=== PATIENT | female | born 1965 | race African-American/Black ===

== ENCOUNTER 2016-11-07 12:49 | Outpatient (CLI) | payer OTHER ==
[2013-03-25 15:49] VITALS: TEMP 98.6
[2016-06-26 20:41] VITALS: BMI 38.6
[2016-11-07 13:28] LABS: BASOPHILS % (AUTO) 0.6 % (0.0-3.0); EOSINOPHILS # (AUTO) 0.1 K/ul (0.0-0.7); EOSINOPHILS % (AUTO) 1.5 % (0.0-7.0); HEMATOCRIT 37.4 % (37.0-47.0); HEMOGLOBIN 12.4 g/dl (12.0-16.0); LYMPHOCYTES # (AUTO) 1.2 K/uL (0.60-3.4); LYMPHOCYTES % (AUTO) 26.1 (10.0-50.0); MEAN CORPUSCULAR HEMOGLOBIN 28.8 pg (27.0-31.0); MEAN CORPUSCULAR HGB CONC 33.2 (31.8-35.4); MEAN CORPUSCULAR VOLUME 86.8 fl (81.0-99.0); MONOCYTES # (AUTO) 0.3 K/uL (0.4-2.0); MONOCYTES % (AUTO) 5.8 (0-10); NEUTROPHILS # (AUTO) 3.1 K/ul (2.0-6.9); PLATELET COUNT 107 10^3/uL (140-440); RED BLOOD COUNT 4.31 10^6/ul (4.20-5.40); WHITE BLOOD COUNT 4.64 K/ul (4.6-10.2)
--- NOTE | 2016-11-07 13:33 | DI ---
EXAM: PA and lateral views of the chest HISTORY: Cough. COMPARISON: Chest x-ray 06/26/2014 FINDINGS: The cardiomediastinal silhouette is unchanged with intact sternotomy wires. There is mil d elevation of the left hemidiaphragm with adjacent ground-glass consolidation. There is no pneumot horax or pleural effusion. There is no additional consolidation, nodule or mass. The osseous struc tures are unremarkable. IMPRESSION: 1. Stable elevation of the left hemidiaphragm with adjacent ground-glass consolidation that may rep resent atelectasis or pneumonia.
[2016-11-07 13:55] LABS: ALBUMIN 4.3 g/dL (3.4-5.0); ALBUMIN/GLOBULIN RATIO 1.43; ANION GAP 15.6; BILIRUBIN,TOTAL 0.69 mg/dL (0.00-1.20); BUN/CREATININE RATIO 21.64; CALCIUM 10.1 mg/dL (8.2-10.2); CREATININE 1.34 mg/dL (0.60-1.30); POTASSIUM 4.6 mmol/L (3.5-5.10); TOTAL PROTEIN 7.3 g/dL (6.4-8.2)
--- NOTE | 2016-11-07 14:41 | CT ---
EXAM: CT BRAIN HISTORY: Headaches TECHNIQUE: CT brain without intravenous contrast. 5-mm axial sections with Reformations. COMPARISON: 05/12/2016 FINDINGS: Suggestion of low-lying cerebellar tonsils likely congenital. Brain otherwise is unremarkable withou t distinct evidence of hemorrhage or large vessel distribution recent ischemic infarction. There is no suggestion of acute hydrocephalus or subdural fluid collection. No mass or mass effect. Cranium is within normal limits. Mastoid air cells are aerated. The visualized paranasal sinuses r eveal partial opacification of the left maxillary cell. IMPRESSION: Chronic maxillary sinusitis.
== END 2016-11-07 12:50 | disposition home or self-care (01) ==
LOC: RAD 12:49
PROVIDERS: ATTEND Emergency Medicine
DX: R51 Headache (principal); R05 Cough; E78.5 Hyperlipidemia, unspecified; I10 Essential (primary) hypertension; E11.9 Type 2 diabetes mellitus without complications; J44.9 Chronic obstructive pulmonary disease, unspecified; K21.9 Gastro-esophageal reflux disease without esophagitis
CPT/HCPCS: 36415; 80053; 85025

== ENCOUNTER 2016-11-08 10:00 | Outpatient (RCR) ==
[2013-03-25 15:49] VITALS: TEMP 98.6
[2016-06-26 20:41] VITALS: BMI 38.6
== END 2016-11-12 ==
LOC: NEWBEG 10:00
PROVIDERS: ATTEND Psychiatry & Neurology Psychiatry
DX: F32.9 Major depressive disorder, single episode, unspecified (principal); F41.9 Anxiety disorder, unspecified
CPT/HCPCS: 90853; 99214

== ENCOUNTER 2016-12-06 09:08 | Outpatient (CLI) ==
[2013-03-25 15:49] VITALS: TEMP 98.6
[2016-06-26 20:41] VITALS: BMI 38.6
[2016-12-06 09:37] LABS: BASOPHILS % (AUTO) 0.6 % (0.0-3.0); EOSINOPHILS # (AUTO) 0.1 K/ul (0.0-0.7); EOSINOPHILS % (AUTO) 2.1 % (0.0-7.0); HEMATOCRIT 37.9 % (37.0-47.0); HEMOGLOBIN 12.3 g/dl (12.0-16.0); IMMATURE GRANULOCYTE % (AUTO) 0.4 % (0.0-5.0); LYMPHOCYTES # (AUTO) 1.7 K/uL (0.60-3.4); LYMPHOCYTES % (AUTO) 32.2 (10.0-50.0); MEAN CORPUSCULAR HEMOGLOBIN 28.7 pg (27.0-31.0); MEAN CORPUSCULAR HGB CONC 32.5 (31.8-35.4); MEAN CORPUSCULAR VOLUME 88.6 fl (81.0-99.0); MONOCYTES # (AUTO) 0.4 K/uL (0.4-2.0); MONOCYTES % (AUTO) 7.9 (0-10); NEUTROPHILS % (AUTO) 56.8; PLATELET COUNT 94 10^3/uL (140-440); RED BLOOD COUNT 4.28 10^6/ul (4.20-5.40); WHITE BLOOD COUNT 5.22 K/ul (4.6-10.2)
[2016-12-06 09:52] LABS: ANION GAP 16.5; CALCIUM 9.7 mg/dL (8.2-10.2); CREATININE 1.3 mg/dL (0.60-1.30); POTASSIUM 4.5 mmol/L (3.5-5.10)
== END 2016-12-06 09:09 | disposition home or self-care (01) ==
LOC: LAB 09:08
PROVIDERS: ATTEND Internal Medicine
DX: Z94.1 Heart transplant status (principal); Z48.298 Encounter for aftercare following other organ transplant; Z79.899 Other long term (current) drug therapy; N28.9 Disorder of kidney and ureter, unspecified
CPT/HCPCS: 36415; 80048; 80197; 85025

== ENCOUNTER 2016-12-06 10:00 | Outpatient (RCR) ==
[2013-03-25 15:49] VITALS: TEMP 98.6
[2016-06-26 20:41] VITALS: BMI 38.6
== END 2016-12-10 ==
LOC: NEWBEG 10:00
PROVIDERS: ATTEND Psychiatry & Neurology Psychiatry
DX: F32.9 Major depressive disorder, single episode, unspecified (principal); F41.9 Anxiety disorder, unspecified; Z94.1 Heart transplant status; Z48.298 Encounter for aftercare following other organ transplant; Z79.899 Other long term (current) drug therapy; N28.9 Disorder of kidney and ureter, unspecified
CPT/HCPCS: 36415; 80048; 80197; 85025; 90853; 99213

== ENCOUNTER → 2017-01-10 | Outpatient (RCR) ==
[2013-03-25 15:49] VITALS: TEMP 98.6
[2016-06-26 20:41] VITALS: BMI 38.6
== END ==
LOC: NEWBEG 12-11 08:31
PROVIDERS: ATTEND Psychiatry & Neurology Psychiatry
DX: F32.9 Major depressive disorder, single episode, unspecified (principal); F41.9 Anxiety disorder, unspecified
CPT/HCPCS: 90853; 99213

== ENCOUNTER 2017-02-07 10:00 | Outpatient (RCR) ==
[2013-03-25 15:49] VITALS: TEMP 98.6
[2016-06-26 20:41] VITALS: BMI 38.6
== END 2017-02-09 ==
LOC: NEWBEG 10:00
PROVIDERS: ATTEND Psychiatry & Neurology Psychiatry
DX: F32.9 Major depressive disorder, single episode, unspecified (principal); F41.9 Anxiety disorder, unspecified
CPT/HCPCS: 90853; 99213

== ENCOUNTER 2017-02-21 10:00 | Outpatient (RCR) ==
[2013-03-25 15:49] VITALS: TEMP 98.6
[2016-06-26 20:41] VITALS: BMI 38.6
== END 2017-03-12 ==
LOC: NEWBEG 10:00
PROVIDERS: ATTEND Psychiatry & Neurology Psychiatry
DX: F32.9 Major depressive disorder, single episode, unspecified (principal); F41.9 Anxiety disorder, unspecified
CPT/HCPCS: 90853; 99213

== ENCOUNTER 2017-03-12 10:22 | Outpatient (CLI) ==
[2013-03-25 15:49] VITALS: TEMP 98.6
[2016-06-26 20:41] VITALS: BMI 38.6
[2017-03-12 10:52] LABS: BASOPHILS % (AUTO) 0.6 % (0.0-3.0); EOSINOPHILS # (AUTO) 0.2 K/ul (0.0-0.7); EOSINOPHILS % (AUTO) 3.4 % (0.0-7.0); HEMATOCRIT 34.5 % (37.0-47.0); HEMOGLOBIN 11.3 g/dl (12.0-16.0); IMMATURE GRANULOCYTE % (AUTO) 0.4 % (0.0-5.0); LYMPHOCYTES # (AUTO) 1.4 K/uL (0.60-3.4); LYMPHOCYTES % (AUTO) 28.3 (10.0-50.0); MEAN CORPUSCULAR HEMOGLOBIN 29.7 pg (27.0-31.0); MEAN CORPUSCULAR HGB CONC 32.8 (31.8-35.4); MEAN CORPUSCULAR VOLUME 90.6 fl (81.0-99.0); MONOCYTES # (AUTO) 0.4 K/uL (0.4-2.0); MONOCYTES % (AUTO) 6.9 (0-10); NEUTROPHILS # (AUTO) 3.1 K/ul (2.0-6.9); NEUTROPHILS % (AUTO) 60.4; PLATELET COUNT 110 10^3/uL (140-440); RED BLOOD COUNT 3.81 10^6/ul (4.20-5.40); WHITE BLOOD COUNT 5.05 K/ul (4.6-10.2)
[2017-03-12 11:09] LABS: ANION GAP 14.8; BUN/CREATININE RATIO 27.1; CALCIUM 9.5 mg/dL (8.2-10.2); CREATININE 1.07 mg/dL (0.60-1.30); POTASSIUM 3.8 mmol/L (3.5-5.10)
== END 2017-03-12 10:23 | disposition home or self-care (01) ==
LOC: LAB 10:22
PROVIDERS: ATTEND Internal Medicine
DX: Z48.298 Encounter for aftercare following other organ transplant (principal); Z94.1 Heart transplant status
CPT/HCPCS: 36415; 80048; 80197; 85025

== ENCOUNTER 2017-03-28 10:00 | Outpatient (RCR) ==
[2013-03-25 15:49] VITALS: TEMP 98.6
[2016-06-26 20:41] VITALS: BMI 38.6
== END 2017-04-11 ==
LOC: NEWBEG 10:00
PROVIDERS: ATTEND Psychiatry & Neurology Psychiatry
DX: F32.9 Major depressive disorder, single episode, unspecified (principal); F41.9 Anxiety disorder, unspecified
CPT/HCPCS: 90853; 99213

== ENCOUNTER 2017-04-02 09:14 | Outpatient (CLI) ==
[2013-03-25 15:49] VITALS: TEMP 98.6
[2016-06-26 20:41] VITALS: BMI 38.6
== END 2017-04-02 09:15 | disposition home or self-care (01) ==
LOC: LAB 09:14
PROVIDERS: ATTEND Internal Medicine
DX: Z48.298 Encounter for aftercare following other organ transplant (principal); Z94.1 Heart transplant status
CPT/HCPCS: 36415; 80197

== ENCOUNTER 2017-06-25 10:00 | Outpatient (CLI) | payer OTHER ==
[2013-03-25 15:49] VITALS: TEMP 98.6
[2016-06-26 20:41] VITALS: BMI 38.6
[2017-06-25 10:28] LABS: BILIRUBIN,URINE Negative (NEGATIVE); KETONES,URINE Negative (NEGATIVE); LEUKOCYTE ESTERASE ,URINE Trace (NEGATIVE); NITRITE,URINE Negative (NEGATIVE); PROTEIN,URINE 1+ (NEGATIVE); URINE, BLOOD Negative (NEGATIVE)
[2017-06-25 10:30] LABS: ADD URINE MICROSCOPIC YES
[2017-06-25 10:36] LABS: BASOPHILS % (AUTO) 0.7 % (0.0-3.0); EOSINOPHILS # (AUTO) 0.1 K/ul (0.0-0.7); EOSINOPHILS % (AUTO) 3.2 % (0.0-7.0); HEMATOCRIT 35.9 % (37.0-47.0); HEMOGLOBIN 11.7 g/dl (12.0-16.0); IMMATURE GRANULOCYTE % (AUTO) 0.2 % (0.0-5.0); LYMPHOCYTES # (AUTO) 1.3 K/uL (0.60-3.4); LYMPHOCYTES % (AUTO) 31.8 (10.0-50.0); MEAN CORPUSCULAR HGB CONC 32.6 (31.8-35.4); MEAN CORPUSCULAR VOLUME 88.9 fl (81.0-99.0); MONOCYTES # (AUTO) 0.2 K/uL (0.4-2.0); MONOCYTES % (AUTO) 5.7 (0-10); NEUTROPHILS # (AUTO) 2.4 K/ul (2.0-6.9); NEUTROPHILS % (AUTO) 58.4; PLATELET COUNT 107 10^3/uL (140-440); RED BLOOD COUNT 4.04 10^6/ul (4.20-5.40); WHITE BLOOD COUNT 4.06 K/ul (4.6-10.2)
[2017-06-25 11:07] LABS: ALBUMIN 3.8 g/dL (3.4-5.0); ALBUMIN/GLOBULIN RATIO 1.23; BILIRUBIN,TOTAL 0.62 mg/dL (0.00-1.20); BUN/CREATININE RATIO 16.32; CALCIUM 9.7 mg/dL (8.2-10.2); CHOL/HDL RATIO 3.2 (4.5-5.5); CREATININE 0.98 mg/dL (0.60-1.30); TOTAL PROTEIN 6.9 g/dL (6.4-8.2)
== END 2017-06-25 10:01 | disposition home or self-care (01) ==
LOC: LAB 10:00
PROVIDERS: ATTEND Internal Medicine
DX: Z00.00 Encounter for general adult medical examination without abnormal findings (principal); E55.9 Vitamin D deficiency, unspecified; E78.5 Hyperlipidemia, unspecified; N28.9 Disorder of kidney and ureter, unspecified; Z79.899 Other long term (current) drug therapy; Z94.1 Heart transplant status; Z48.298 Encounter for aftercare following other organ transplant
CPT/HCPCS: 36415; 80053; 80061; 80197; 81001; 82306; 82550; 83036; 85025

== ENCOUNTER 2017-08-31 13:15 | Inpatient (IN) ==
[2017-08-31 13:38] LABS: BASOPHILS % (AUTO) 0.6 % (0.0-3.0); EOSINOPHILS # (AUTO) 0.1 K/ul (0.0-0.7); EOSINOPHILS % (AUTO) 0.9 % (0.0-7.0); HEMATOCRIT 37.2 % (37.0-47.0); HEMOGLOBIN 12.1 g/dl (12.0-16.0); IMMATURE GRANULOCYTE % (AUTO) 0.7 % (0.0-5.0); LYMPHOCYTES # (AUTO) 1.1 K/uL (0.60-3.4); LYMPHOCYTES % (AUTO) 21.1 (10.0-50.0); MEAN CORPUSCULAR HEMOGLOBIN 28.8 pg (27.0-31.0); MEAN CORPUSCULAR HGB CONC 32.5 (31.8-35.4); MEAN CORPUSCULAR VOLUME 88.6 fl (81.0-99.0); MONOCYTES # (AUTO) 0.3 K/uL (0.4-2.0); MONOCYTES % (AUTO) 5.4 (0-10); NEUTROPHILS # (AUTO) 3.8 K/ul (2.0-6.9); NEUTROPHILS % (AUTO) 71.3; PLATELET COUNT 110 10^3/uL (140-440); WHITE BLOOD COUNT 5.36 K/ul (4.6-10.2)
[2017-08-31 14:04] LABS: ALANINE AMINOTRANSFERASE 16 U/L (12-78); ALBUMIN 4.1 g/dL (3.4-5.0); ALBUMIN/GLOBULIN RATIO 1.14; ALKALINE PHOSPHATASE 50 U/L (42-98); ANION GAP 15.2; ASPARTATE AMINO TRANSFERASE 13 U/L (15-37); BILIRUBIN,TOTAL 0.49 mg/dL (0.00-1.20); BLOOD UREA NITROGEN 23 mg/dL (7-18); BUN/CREATININE RATIO 21.69; CARBON DIOXIDE 28 mmol/L (21-32); CHLORIDE 100 mmol/L (98-107); CREATINE KINASE 55 U/L; CREATININE 1.06 mg/dL (0.60-1.30); GLUCOSE 91 mg/dL (70-110); POTASSIUM 4.2 mmol/L (3.5-5.10); SODIUM 139 mmol/L (136-145); TOTAL PROTEIN 7.7 g/dL (6.4-8.2)
--- NOTE | 2017-08-31 14:20 | ED.PDOC ---
General ED Provider: Dr. EVAN ZAFAR Chief Complaint: Shortness of Air Stated Complaint: Patient is a 52 year old female with a history of Heart transplant who complains of substernal chest tightness with breathing. States has a history of infection on the chest and is on bactrium. Time Seen by Physician: 13:20 Mode of Arrival: Walk-In Information Source: Patient Primary Care Provider: ALETHA CHIU Nursing and Triage Documentation Reviewed and Agree: Yes Review of Systems - Review Of Systems Constitutional: Reports: No symptoms Eyes: Reports: No symptoms Ears, Nose, Mouth, Throat: Reports: No symptoms Respiratory: Denies: Cough, Short of air Cardiac: Reports: Chest pain (worse with deep breathing ) GI: Reports: No symptoms : Reports: No symptoms Musculoskeletal: Reports: No symptoms Skin: Reports: No symptoms Neurological: Reports: Anxiety All Other Systems: Reviewed and Negative Past Medical History - Past Medical History Endocrine: Reports: None Cardiovascular: Reports: CHF (due to ), Other (heart transplant in 2012/endometriosis hysterectomy cancer) Respiratory: Reports: None Hematological: Reports: None Gastrointestinal: Reports: None Genitourinary: Reports: Other (endometriosis) Neuro/Psych: Reports: None Musculoskeletal: Reports: None Cancer: Reports: Unknown Last Menstrual Period: none Other Pertinent Past Medical History: heart transplant in 2012/ endometriosishysterectomycancer - Surgical History General Surgical History: Reports: Hysterectomy, Other (Heart Transplant. ) - Family History Family History: Reports: None - Social History Smoking Status: Never smoker Hx Substance Use: No Alcohol Screening: None Physical Exam - Physical Exam Appearance: Ill-appearing, Obese Ill-appearing: Mild Pain Distress: Moderate Neck: Supple Respiratory: Airway patent, Breath sounds clear, Breath sounds equal, Respirations nonlabored Cardiovascular: RRR, Pulses normal, No rub, No murmur GI/: Soft, Nontender, No masses, Bowel sounds normal, No Organomegaly Skin: Warm, Dry Neurological: Sensation intact Psychiatric: Anxious Interpretation - Radiology Interpretation Radiology Interpretation By: Radiologist Radiology Results: Negative Exam Interpreted: CT Scan - EKG Interpretation Rate: Normal Rhythm: Sinus Ectopy: None [place]: NL ST Segment: Normal Re-Evaluation - Re-Evaluation Time of Re-Evaluation: 17:32 Status: Unchanged Vital Signs Stable: Yes Physician Notification - Case Discussed Physician Notified: Dr. Chiu Time of Notification: 17:00 (admit to blanc, Place on BID bactrium, Toradol 30mg @8 hr and Solumedrol or solucortef TID.) Critical Care Note - Critical Care Note Total Time (mins): 30 Course - Course Hematology/Chemistry: 08/31/17 13:30 08/31/17 13:30 Orders, Labs, Meds: Lab Review 08/31/17 08/31/17 08/31/17 13:30 13:30 13:30 WBC 5.36 RBC 4.20 Hgb 12.1 Hct 37.2 MCV 88.6 MCH 28.8 MCHC 32.5 RDW Coeff of Gabriela 13.5 Plt Count 110 L Immature Gran % (Auto) 0.7 Neut % (Auto) 71.3 Lymph % (Auto) 21.1 [place] % (Auto) 5.4 Eos % (Auto) 0.9 Baso % (Auto) 0.6 Immature Gran # (Auto) 0.0 Neut # 3.8 Lymph # 1.1 [place] # 0.3 L Eos # 0.1 Baso # 0.0 D-Dimer (Manual) Sodium 139 Potassium 4.2 Chloride 100 Carbon Dioxide 28 Anion Gap 15.2 BUN 23 H Creatinine 1.06 Estimated GFR (MDRD) 67.00 BUN/Creatinine Ratio 21.69 Glucose 91 Calcium 10.0 Total Bilirubin 0.49 AST 13 L ALT 16 Alkaline Phosphatase 50 Total Creatine Kinase 55 Troponin I < 0.0100 B-Natriuretic Peptide 131 H Total Protein 7.7 Albumin 4.1 Globulin 3.6 Albumin/Globulin Ratio 1.14 08/31/17 13:30 WBC RBC Hgb Hct MCV MCH MCHC RDW Coeff of Gabriela Plt Count Immature Gran % (Auto) Neut % (Auto) Lymph % (Auto) [place] % (Auto) Eos % (Auto) Baso % (Auto) Immature Gran # (Auto) Neut # Lymph # [place] # Eos # Baso # D-Dimer (Manual) 939.49 Sodium Potassium Chloride Carbon Dioxide Anion Gap BUN Creatinine Estimated GFR (MDRD) BUN/Creatinine Ratio Glucose Calcium Total Bilirubin AST ALT Alkaline Phosphatase Total Creatine Kinase Troponin I B-Natriuretic Peptide Total Protein Albumin Globulin Albumin/Globulin Ratio Orders Category Date Time Status EKG-(ED ONLY) Stat CARDIO 08/31/17 13:29 Completed NPO REMINDER: IMAGING ONCE CARE 08/31/17 14:33 Completed ED IV/MEDIPORT/POWERPORT .ONCE EMERGENCY 08/31/17 13:29 Active B-TYPE NATRIURETIC PEPTIDE Stat LAB 08/31/17 13:30 Completed CBC W/ AUTO DIFF Stat LAB 08/31/17 13:30 Completed COMPREHENSIVE METABOLIC PANEL Stat LAB 08/31/17 13:30 Completed CREATINE KINASE Stat LAB 08/31/17 13:30 Completed D-DIMER Stat LAB 08/31/17 13:30 Completed TROPONIN I Stat LAB 08/31/17 13:30 Completed 0.9 % Sodium Chloride [Saline Flush] MEDS 08/31/17 13:29 Ordered 1 syr IVF PRN PRN Ketorolac Tromethamine [Toradol] MEDS 08/31/17 16:50 Discontinued 30 mg IVP ONCE STA Sodium Chloride 0.9% [Sodium Chloride] 1,000 ml MEDS 08/31/17 15:11 Active IV 150 mls/hr CT CHEST PE PROTOCOL Stat RADS 08/31/17 14:32 Completed Medications Generic Name Dose Route Start Last Admin Trade Name Freq PRN Reason Stop Dose Admin Acetaminophen 650 mg 08/31/17 17:10 Tylenol PO Q4H PRN Fever > 102 Aspirin 81 mg 09/01/17 09:00 Aspirin Chewable PO DAILY [facility] Azathioprine 25 mg 08/31/17 21:00 Imuran PO BEDTIME [facility] Duloxetine HCl 60 mg 09/01/17 09:00 Cymbalta PO DAILY [facility] Enoxaparin Sodium 40 mg 09/01/17 09:00 Lovenox SUBCUT DAILY [facility] Gabapentin 100 mg 08/31/17 21:00 Neurontin PO BID [facility] Sodium Chloride 1,000 mls @ 150 mls/hr 08/31/17 15:11 08/31/17 15:17 Sodium Chloride IV 08/31/17 21:50 150 mls/hr .Q6H40M STA Administration Pantoprazole Sodium 40 mg/ 100 mls @ 100 mls/hr 08/31/17 17:30 Sodium Chloride IV DAILY [facility] Ketorolac Tromethamine 30 mg 08/31/17 21:00 Toradol IVP Q8HR [facility] Methylprednisolone Sodium Succinate 125 mg 08/31/17 17:30 Solu-Medrol 125 Mg IVP Q8HR [facility] Metoprolol Tartrate 25 mg 08/31/17 21:00 Lopressor PO BEDTIME [facility] Multivitamins tab 09/01/17 09:00 Multivitamin Tablet PO DAILY [facility] Nitrofurantoin Macrocrystals 100 mg 08/31/17 21:00 Macrodantin PO BEDTIME [facility] Non-Formulary Medication 1 each 08/31/17 21:00 Calcium Carb & Citrate/Vit D3 [Calcium + Vitamin D3 Caplet] PO BID [facility] Non-Formulary Medication 325 mg 08/31/17 21:00 Ferrous Sulfate [Ferrous Sulfate] PO BID [facility] Non-Formulary Medication 50 mg 09/01/17 09:00 Losartan Potassium PO DAILY [facility] Non-Formulary Medication 6 mg 08/31/17 21:00 Tacrolimus [Prograf] PO BID [facility] Ondansetron HCl 4 mg 08/31/17 17:10 Zofran 4 Mg/2 Ml IVP Q6H PRN Nausea / Vomiting Pravastatin Sodium 40 mg 08/31/17 21:00 Pravachol PO BEDTIME [facility] Sodium Chloride 1 syr 08/31/17 13:29 08/31/17 15:16 Saline Flush IVF 1 syr PRN PRN Administration To flush IV Trimethoprim/Sulfamethoxazole 1 tab 08/31/17 17:30 Bactrim Ds 800/160 Mg PO Q12HR [facility] Discontinued Medications Generic Name Dose Route Start Last Admin Trade Name Freq PRN Reason Stop Dose Admin Ketorolac Tromethamine 30 mg 08/31/17 16:50 08/31/17 16:56 Toradol IVP 08/31/17 16:51 30 mg ONCE STA Administration Metoprolol Tartrate 25 mg 08/31/17 21:00 Lopressor PO BID [facility] Pravastatin Sodium 40 mg 09/01/17 09:00 Pravachol PO DAILY [facility] Vital Signs: Temp Pulse Resp BP Pulse Ox 08/31/17 13:16 97.8 F 74 20 178/112 H 95 ODESSA Risk Score ODESSA Risk Score: Risk Score Odds of by 30D 0 0.1 (0.1-0.2) 1 0.3 (0.2-0.3) 2 0.4 (0.3-0.5) 3 0.7 (0.6-0.9) 4 1.2 (1.0-1.5) 5 2.2 (1.9-2.6) 6 3.0 (2.5-3.6) 7 4.8 (3.8-6.1) Departure - Departure Time of Disposition: 17:15 Disposition: ADMITTED INPATIENT Discharge Problem: Acute chest wall pain, Pleurisy without effusion, Bronchitis Condition: Fair Pt referred to PMD for follow-up: Yes Allergies/Adverse Reactions: Allergies No Known Allergies Allergy (Verified 08/31/17 13:21) Home Medications: Ambulatory Orders Aspirin [Aspirin Chewable] 81 mg PO DAILY 03/25/13 Gabapentin 100 mg PO BID 03/25/13 Multivitamin [Multi Vitamin Daily] 1 each PO DAILY 03/25/13 Tacrolimus [Prograf] 6 mg PO BID 03/25/13 Calcium Carb & Citrate/Vit D3 [Calcium + Vitamin D3 Caplet] 1 each PO BID Metoprolol Tartrate [Lopressor] 25 mg PO BEDTIME 10/10/14 Nitrofurantoin Macrocrystal [Nitrofurantoin] 100 mg PO BEDTIME 10/10/14 Prednisone 5 mg PO DAILYWM 10/10/14 Azathioprine 25 mg PO BEDTIME 05/12/16 Duloxetine HCl [Cymbalta] 60 mg PO DAILY 05/12/16 Pravastatin Sodium [Pravachol] 40 mg PO BEDTIME 05/12/16 Ferrous Sulfate 325 mg PO BID 08/31/17 Lorazepam 1 tab PO BEDTIME PRN 08/31/17 Losartan Potassium [Cozaar] 50 mg PO DAILY 08/31/17 Sulfamethoxazole/Trimethoprim [Bactrim 400-80 mg Tablet] 1 each PO MOWEFR
[2017-08-31] MEDS ORDERED: SODIUM CHLORIDE 1,000 ML IV STA (15:11)
--- NOTE | 2017-08-31 15:24 | CT ---
EXAM: CT angiogram of the chest with contrast HISTORY: Chest pain HISTORY: Heart transplant elevated D-dimer TECHNIQUE: Imaging of the chest was performed following the intravenous administration of contrast. 3 mm thin axial images and coronal and sagittal reconstructions and rotated 3-D reconstructions were provided for interpretation. FINDINGS: No definite filling defects are identified within the branches of the pulmonary arteries. The central pulmonary arteries are normal. The heart is normal size. No mediastinal masses are seen . There is a normal appearance of the thoracic aorta without aneurysm or dissection. There has been previous midline sternotomy. Lungs are clear. No lytic or blastic lesions are seen within the osseou s structures. IMPRESSION: There is no evidence of acute pulmonary embolism. No acute abnormalities are seen within the thorax.
[2017-08-31] MEDS ORDERED: TORADOL IM STA (16:40)
[2017-08-31] MEDS ORDERED: TORADOL IVP STA (16:50)
[2017-08-31] MEDS ORDERED: ZOFRAN 4 MG/2 ML IVP PRN (17:10)
[2017-08-31] MEDS ORDERED: TYLENOL PO PRN (17:10)
[2017-08-31] MEDS ORDERED: PROTONIX IV 40 MG in SODIUM CHLORIDE 100 ML IV SCH (17:30)
[2017-08-31] MEDS ORDERED: PROTONIX IV ONE (18:16)
[2017-08-31 18:24] VITALS: BMI 41.3
[2017-08-31] MEDS: BACTRIM DS 800/160 MG PO SCH ×2 (18:25→21:48)
[2017-08-31] MEDS: SOLU-MEDROL 125 MG IVP SCH ×2 (18:29→21:47)
[2017-08-31] MEDS ORDERED: LOVENOX SUBCUT STA (18:58)
[2017-08-31] MEDS ORDERED: ATIVAN PO PRN (19:02)
[2017-08-31] MEDS ORDERED: COZAAR PO STA (19:03)
[2017-08-31] MEDS ORDERED: VASOTEC IV IVP PRN (19:04)
[2017-08-31] MEDS ORDERED: SODIUM CHLORIDE 500 ML IV SCH (19:30)
[2017-08-31] MEDS ORDERED: NON-FORMULARY MEDICATION (Ferrous Sulfate [Ferrous Sulfate] 325 MG) PO SCH ×22 (21:00)
[2017-08-31] MEDS ORDERED: TACROLIMUS 6 MG PO SCH (21:00)
[2017-08-31] MEDS ORDERED: CITRATE PO SCH (21:00)
[2017-08-31] MEDS ORDERED: CALCIUM CARB PO SCH (21:00)
[2017-08-31] MEDS ORDERED: LOPRESSOR PO SCH (21:00)
[2017-08-31] MEDS ORDERED: [UNRECOGNIZED DRUG - OTHER] PO SCH (21:00)
[2017-08-31] MEDS ORDERED: VIT D3 PO SCH (21:00)
[2017-08-31] MEDS ORDERED: CALCIUM 500 + VIT D 200 MG TABLET ONE (21:43)
[2017-08-31] MEDS ORDERED: FERROUS SULFATE ONE (21:44)
[2017-08-31] MEDS: TORADOL IVP SCH (21:48)
[2017-08-31] MEDS: LOPRESSOR PO SCH (21:50)
[2017-08-31] MEDS: PRAVACHOL PO SCH (21:50)
[2017-08-31] MEDS: NEURONTIN PO SCH (21:51)
[2017-08-31] MEDS: IMURAN PO SCH (21:53)
[2017-08-31] MEDS: MACRODANTIN PO SCH (21:54)
[2017-08-31] MEDS: SODIUM CHLORIDE 1,000 ML IV SCH (22:59)
[2017-08-31] MEDS ORDERED: SODIUM CHLORIDE 1,000 ML IV ONE (22:59)
[2017-08-31 23:10] LABS: CREATINE KINASE 56 U/L
[2017-09-01] MEDS: SOLU-MEDROL 125 MG IVP SCH ×3 (04:55→21:06)
[2017-09-01] MEDS: TORADOL IVP SCH ×3 (04:55→21:06)
[2017-09-01 07:50] LABS: BASOPHILS % (AUTO) 0.1 % (0.0-3.0); HEMATOCRIT 34.6 % (37.0-47.0); HEMOGLOBIN 11.5 g/dl (12.0-16.0); IMMATURE GRANULOCYTE % (AUTO) 0.4 % (0.0-5.0); LYMPHOCYTES # (AUTO) 0.6 K/uL (0.60-3.4); LYMPHOCYTES % (AUTO) 6.9 (10.0-50.0); MEAN CORPUSCULAR HEMOGLOBIN 29.3 pg (27.0-31.0); MEAN CORPUSCULAR HGB CONC 33.2 (31.8-35.4); MONOCYTES % (AUTO) 0.4 (0-10); NEUTROPHILS # (AUTO) 8.5 K/ul (2.0-6.9); NEUTROPHILS % (AUTO) 92.2; PLATELET COUNT 115 10^3/uL (140-440); RED BLOOD COUNT 3.93 10^6/ul (4.20-5.40); WHITE BLOOD COUNT 9.23 K/ul (4.6-10.2)
[2017-09-01 08:18] LABS: ANION GAP 14.7; BLOOD UREA NITROGEN 33 mg/dL (7-18); CALCIUM 9.3 mg/dL (8.2-10.2); CARBON DIOXIDE 24 mmol/L (21-32); CHLORIDE 103 mmol/L (98-107); CREATINE KINASE 48 U/L; GLUCOSE 156 mg/dL (70-110); POTASSIUM 4.7 mmol/L (3.5-5.10); SODIUM 137 mmol/L (136-145)
[2017-09-01 08:35] LABS: CREATININE 1.65 mg/dL (0.60-1.30)
[2017-09-01] MEDS: LOVENOX SUBCUT SCH (08:51)
[2017-09-01] MEDS: NEURONTIN PO SCH ×2 (08:52→21:04)
[2017-09-01] MEDS: ASPIRIN CHEWABLE PO SCH (08:52)
[2017-09-01] MEDS: BACTRIM DS 800/160 MG PO SCH ×2 (08:52→21:05)
[2017-09-01] MEDS: CALCIUM 500 + VIT D 200 MG TABLET PO SCH ×2 (08:52→21:05)
[2017-09-01] MEDS: CYMBALTA PO SCH (08:52)
[2017-09-01] MEDS: FERROUS SULFATE PO SCH ×2 (08:53→21:06)
[2017-09-01] MEDS: MULTIVITAMIN TABLET PO SCH (08:53)
[2017-09-01] MEDS: TACROLIMUS 6 MG PO SCH ×2 (08:53→21:03)
[2017-09-01] MEDS ORDERED: NON-FORMULARY MEDICATION (Losartan Potassium 50 MG) PO SCH (09:00)
[2017-09-01] MEDS ORDERED: PRAVACHOL PO SCH (09:00)
[2017-09-01] MEDS ORDERED: COZAAR PO SCH (09:00)
[2017-09-01] MEDS ORDERED: PROTONIX IV 40 MG in SODIUM CHLORIDE 100 ML IV SCH (09:00)
[2017-09-01] MEDS: SODIUM CHLORIDE 1,000 ML IV SCH (11:36)
[2017-09-01] MEDS ORDERED: SODIUM CHLORIDE 1,000 ML IV ONE (11:36)
--- NOTE | 2017-09-01 11:58 | PCM.PROG ---
Attending Provider: ATTENDING PROVIDER: Dr. ALETHA ZIMMERMAN This patient is seen with Cait Pina, Nurse Practitioner. DATE OF SERVICE: 09/01/17 SUBJECTIVE: This 52 year old BLACK/ F was hospitalized 08/31/17. The patient is lying in bed, alert. She states this morning she has had some abdominal discomfort in the epigastric area. She has nausea. Chest pain is atypical, more like pain with inspiration due to pleurisy. Chest CT is normal. REVIEW OF SYSTEMS: CONSTITUTIONAL: No night sweats. No fatigue, malaise, lethargy. No fever or chills. HEENT: Eyes: No visual changes. No eye pain. No eye discharge. ENT: No runny nose. No epistaxis. No sinus pain. No odynophagia. No congestion. RESPIRATORY: No cough, no congestion. No hemoptysis. No shortness of breath. CARDIOVASCULAR: No angina symptoms. No CHF symptoms. No atypical chest pain for CAD, has pleuritic pain. No palpitations. No orthopnea.. GASTROINTESTINAL: Nausea. Epigastric tenderness. No abdominal pain. No vomiting. No diarrhea or constipation. No hematemesis. No hematochezia. GENITOURINARY: No urgency. No frequency. No dysuria. No hematuria. No obstructive symptoms. No discharge. No pain. No significant abnormal bleeding. MUSCULOSKELETAL: No musculoskeletal pain; no joint swelling. NEUROLOGICAL: Awake, alert, oriented to time, place and person. No headache. No neck pain. No syncope. No seizures. No dizziness. PSYCHIATRIC: Not anxious. No depression. No suicidal thoughts. No homicidal thoughts. SKIN: No rash. No lesions. No wounds. ENDOCRINE: No unexplained weight loss. No weight gain. HEMATOLOGIC/LYMPHATIC: No anemia. No purpura. No petechiae. No prolonged or excessive bleeding. No palpable lymph nodes. PHYSICAL EXAMINATION: GENERAL: The patient is awake, alert and oriented, lying in bed in no distress. VITAL SIGNS: Temperature 97.5 F, Pulse 70, Respiratory Rate 18, BP 139/99, Pulse Ox 97% HEENT: Head normocephalic, atraumatic. Eyes: Extraocular muscles are intact. Pupils are equal, round and reactive to light and accommodation. Ears: No lesions. Nose appeared normal. Throat: No exudate or erythema. NECK: Supple. No JVD, no carotid bruit. No lymphadenopathy or thyromegaly. LUNGS: Clear to auscultation. Percussion note normal. Chest symmetrical. HEART: S1, S2, no S3. No murmurs. No cyanosis or clubbing. No ascites. Pulses: Dorsalis pedis and posterior tibial pulses +1 to +2 both sides. ABDOMEN: Soft. Epigastric tenderness. Bowel sounds active. No CVA tenderness. No mass felt. EXTREMITIES: No edema. Full range of motion of all extremities, equal. NEUROLOGIC: No focal deficit. Cranial nerves II through XII are grossly intact. No headache, no double vision or headache. SKIN: Not dry. Intact. Turgor-normal. LYMPHATIC: No palpable lymph nodes/no lymphedema. MUSCULOSKELETAL: Normal joints with no swelling. Muscle tone is normal. 08/31/17 22:44: Total Creatine Kinase 56, Troponin I < 0.0100 ASSESSMENT: 1. Pleuritic type chest pain. 2. Nausea 3. Diarrhea 4. Heart transplant 2011 5. History of recurrent UTI PLAN: 1. Echocardiogram 2. Protonix [address] b[address]d. 3. CT abdomen and pelvis without contrast 4. Continue Bactrim 5. Continue Macrodantin 100 mg daily prescribed by Dr. Resendiz Plan and coordination of the patient's care discussed in the presence of House Mover Helper and nurse. CONDITION: Stable SCRIBED BY: Pily CAVAZOS scribed while in presence of service performed by Dr. Zimmerman/Cait Pina APRN on 09/01/17 ([id number])
--- NOTE | 2017-09-01 13:29 | CT ---
EXAM: CT abdomen HISTORY: Right upper quadrant abdominal pain. TECHNIQUE: CT abdomen without contrast. Multiplanar images provided. FINDINGS: Comparison is to 11/20/2015. Diagnostic limitations exist without including contrast enhanced images. No focal hepatic or splenic lesions identified. Gallbladder, pancreas and adrenal glands are within normal limits. There appea rs to be retained contrast agent within the renal collecting systems possibly from recent administrat ion. If no recent administration has occurred, correlation for poor renal function is recommended. No hydronephrosis is identified. Normal abdominal aorta. Stomach is mildly distended with food product. The visualized appendix has no evidence of inflammati on. Scattered colonic diverticulosis. Normal bowel gas pattern. No ascites identified. No ventral abdominal wall hernia. The bones reveal moderate degenerative facet disease of the lower spine. Lung bases are clear. No pneumoperitoneum. IMPRESSION: 1. There is mild distension of the stomach with food product, nonspecific. Otherwise no definite et iology for upper abdominal pain was found. 2. Scattered colonic diverticulosis without diverticulitis. 3. There appears to be retained contrast agent within the renal collecting systems possibly from rec ent administration. If no recent administration has occurred, correlation for poor renal function is recommended.
--- NOTE | 2017-09-01 15:22 | PN ---
DATE OF SERVICE: 08/31/17 SUBJECTIVE: This is a 52-year-old black female patient who is a heart transplant patient. She came to the emergency room with chest tightness mainly with deep inspiration. Also has some symptoms of bronchitis. The patient has been on Bactrim on a regular basis, one a day. Also she is on a couple of them including steroids with anti-rejection regimen. The patient is being followed for heart transplant by [facility]. So far she has done well. The patient's other problems are hypertension, obesity, dyslipidemia. PHYSICAL EXAMINATION: GENERAL: The patient is oriented to time, place and person. VITAL SIGNS: Temperature 98, pulse 78, respiratory rate 15, BP 168/96. HEENT: Head normocephalic, atraumatic. Eyes: Extraocular muscles are intact. Pupils are equal, round and reactive to light and accommodation. Ears: No lesions. Nose appeared normal. Throat: No exudate or erythema. NECK: Supple. No JVD, no carotid bruit. No lymphadenopathy or thyromegaly. LUNGS: Decreased breath sounds but clear to auscultation. Percussion note normal. Chest symmetrical. HEART: S1, S2, no S3. No murmurs. No cyanosis or clubbing. No ascites. Pulses: Dorsalis pedis and posterior tibial pulses +1 to +2 both sides. ABDOMEN: Soft. Nontender. Bowel sounds active. No CVA tenderness. No mass felt. EXTREMITIES: No edema. Full range of motion of all extremities, equal. NEUROLOGIC: No focal deficit. Cranial nerves II through XII are grossly intact. No headache, no double vision or headache. SKIN: Not dry. Intact. Turgor - normal. LYMPHATIC: No palpable lymph nodes/no lymphedema. MUSCULOSKELETAL: Normal joints with no swelling. Muscle tone is normal. LABS: The patient had D. dimer which was 900. Pulmonary protocol angiogram involving chest was negative for pulmonary embolism. EKG sinus rhythm, no acute changes, cardiac markers negative. ASSESSMENT: 1. Chest tightness likely from acute bronchitis 2. Heart transplant 3. Dyslipidemia 4. Hypertension PLAN: 1. Steroids 2. Increase Bactrim or Sulfa to twice a day 3. Protonix 40 mg twice a day 4. Telemetry 5. EKG CONDITION: Stable TIME SPENT: More than 30 minutes. Plan and coordination of the patient's care discussed in the presence of nurse. LINDA
[2017-09-01] MEDS: PROTONIX PO SCH (16:40)
[2017-09-01] MEDS: MACRODANTIN PO SCH (21:04)
[2017-09-01] MEDS: IMURAN PO SCH (21:05)
[2017-09-01] MEDS: LOPRESSOR PO SCH (21:05)
[2017-09-01] MEDS: PRAVACHOL PO SCH (21:06)
[2017-09-02] MEDS: SODIUM CHLORIDE 1,000 ML IV SCH ×2 (00:26→13:53)
[2017-09-02] MEDS ORDERED: SODIUM CHLORIDE 1,000 ML IV ONE (00:26)
[2017-09-02 05:02] LABS: BASOPHILS % (AUTO) 0.1 % (0.0-3.0); HEMATOCRIT 31.5 % (37.0-47.0); HEMOGLOBIN 10.2 g/dl (12.0-16.0); IMMATURE GRANULOCYTE % (AUTO) 0.9 % (0.0-5.0); LYMPHOCYTES # (AUTO) 0.6 K/uL (0.60-3.4); LYMPHOCYTES % (AUTO) 4.2 (10.0-50.0); MEAN CORPUSCULAR HGB CONC 32.4 (31.8-35.4); MEAN CORPUSCULAR VOLUME 89.5 fl (81.0-99.0); MONOCYTES # (AUTO) 0.4 K/uL (0.4-2.0); MONOCYTES % (AUTO) 2.5 (0-10); NEUTROPHILS % (AUTO) 92.3; PLATELET COUNT 107 10^3/uL (140-440); RED BLOOD COUNT 3.52 10^6/ul (4.20-5.40); WHITE BLOOD COUNT 14.09 K/ul (4.6-10.2)
[2017-09-02] MEDS: SOLU-MEDROL 125 MG IVP SCH ×2 (05:06→13:53)
[2017-09-02] MEDS: TORADOL IVP SCH ×2 (05:06→13:53)
[2017-09-02 05:22] LABS: ANION GAP 14.8; BUN/CREATININE RATIO 21.85; CALCIUM 8.6 mg/dL (8.2-10.2); CREATININE 1.83 mg/dL (0.60-1.30); POTASSIUM 4.8 mmol/L (3.5-5.10)
[2017-09-02] MEDS: PROTONIX PO SCH (05:54)
[2017-09-02] MEDS: LOVENOX SUBCUT SCH (08:59)
[2017-09-02] MEDS: TACROLIMUS 6 MG PO SCH (08:59)
[2017-09-02] MEDS ORDERED: BACTROBAN TP SCH (09:00)
[2017-09-02] MEDS: ASPIRIN CHEWABLE PO SCH (09:00)
[2017-09-02] MEDS ORDERED: COZAAR PO SCH (09:00)
[2017-09-02] MEDS: CALCIUM 500 + VIT D 200 MG TABLET PO SCH (09:00)
[2017-09-02] MEDS: CYMBALTA PO SCH (09:00)
[2017-09-02] MEDS: FERROUS SULFATE PO SCH (09:00)
[2017-09-02] MEDS: NEURONTIN PO SCH (09:01)
[2017-09-02] MEDS: MULTIVITAMIN TABLET PO SCH (09:01)
[2017-09-02] MEDS: BACTRIM DS 800/160 MG PO SCH (09:05)
--- NOTE | 2017-09-02 09:48 | HP ---
DATE OF SERVICE: 09/01/17 HISTORY OF PRESENT ILLNESS: This is a 52-year-old -[place] female who is a heart transplant patient , who presented to the emergency room with atypical chest pain. She stated she had pain with deep breathing. She was not experiencing any coughing. She does have history of respiratory infections and is on Bactrim for maintenance dose on Friday, Friday and Friday. PAST MEDICAL HISTORY: CHF Endometriosis Obesity Hypertension Dyslipidemia Anemia Anxiety Depression Neuropathy Insomnia Recurrent UTI PAST SURGICAL HISTORY: Hysterectomy Heart transplant 2011 REVIEW OF SYSTEMS: CONSTITUTIONAL: No night sweats. No fatigue, malaise, lethargy. No fever or chills. HEENT: Eyes: No visual changes. No eye pain. No eye discharge. ENT: No runny nose. No epistaxis. No sinus pain. No sore throat. No odynophagia. No ear pain. No congestion. RESPIRATORY: No cough, no congestion. No hemoptysis. No shortness of breath. CARDIOVASCULAR: No angina symptoms. No CHF symptoms. No atypical chest pain for CAD. No palpitations. No orthopnea. GASTROINTESTINAL: No abdominal pain. No nausea or vomiting. No diarrhea or constipation. No hematemesis. No hematochezia. GENITOURINARY: No urgency. No frequency. No dysuria. No hematuria. No obstructive symptoms. No discharge. No pain. No significant abnormal bleeding. MUSCULOSKELETAL: No musculoskeletal pain. No joint swelling. No arthritis. NEUROLOGICAL: No headache. No neck pain. No syncope. No seizures. No dizziness. PSYCHIATRIC: Not anxious. No depression. No suicidal thoughts. No homicidal thoughts. SKIN: No rash. No lesions. No wounds. ENDOCRINE: No unexplained weight loss. No weight gain. HEMATOLOGIC/LYMPHATIC: No anemia. No purpura. No petechiae. No prolonged or excessive bleeding. No palpable lymph nodes. PERSONAL/FAMILY/SOCIAL HISTORY: The patient is a nonsmoker. She currently lives alone. She denies any alcohol or illicit drug use. She does not work. No pertinent family history. MEDICATIONS: Aspirin 81 mg daily Neurontin 100 mg b.i.d. Multivitamin Prograf 6 mg b.i.d. Lopressor 25 mg at bedtime Nitrofurantoin 100 mg at bedtime Prednisone 5 mg daily Azathioprine 25 mg p.o. bedtime Cymbalta 60 mg daily Pravachol 40 mg daily Ferrous Sulfate 325 mg b.i.d. Ativan 1 mg at bedtime Cozaar 50 mg daily Bactrim 400/80 mg one tablet on Friday, Friday and Friday ALLERGIES: NKDA PHYSICAL EXAMINATION: GENERAL: The patient is ill-appearing in no apparent distress, well-nourished. HEENT: Head normocephalic, atraumatic. Eyes: Extraocular muscles are intact. Pupils are equal, round and reactive to light and accommodation. Ears: No lesions. Nose appeared normal. Throat: No exudate or erythema. NECK: Supple. No JVD, no carotid bruit. No lymphadenopathy or thyromegaly. LUNGS: Diminished breath sounds bilaterally but clear, equal, nonlabored. No wheezing or adventitious breath sounds. Percussion note normal. Chest symmetrical. HEART: Regular rate and rhythm. S1, S2, no S3. No murmurs, clicks or rubs. No cyanosis or clubbing. No ascites. Pulses: Dorsalis pedis and posterior tibial pulses +1 to +2 both sides. ABDOMEN: Soft. Positive for epigastric tenderness. Bowel sounds active times four quadrants. No CVA tenderness. No hepatosplenomegaly. EXTREMITIES: [place], warm and dry. No edema. No calf tenderness. No joint redness or swelling. Negative Vinay's sign bilaterally. Full range of motion of all extremities, equal. NEUROLOGIC: No focal deficit. Cranial nerves II through XII are grossly intact. No headache, no double vision or headache. SKIN: [place], warm, dry and intact. Turgor - normal. LYMPHATIC: No palpable lymph nodes/no lymphedema. MUSCULOSKELETAL: Normal joints with no swelling. Muscle tone is normal. RADIOLOGIC FINDINGS: CT scan showed no chest congestion, was normal. EKG showed normal sinus rhythm. LABS: Hemoglobin 12.1, hematocrit 37.2, white count 5.36, platelets 110,000. Sodium 139, potassium 4.2, BUN 23, creatinine 1.06, glucose 91. Alkaline phosphatase 50. AST 13, ALT 16, total CK 55. Troponin less than 0.01. BNP 131. Total protein 7.7. ASSESSMENT: 1. PLEURITIC TYPE CHEST PAIN 2. STATUS POST HEART TRANSPLANT PATIENT 3. HYPERTENSION PLAN: 1. Admit to the floor. 2. Vasotec 1.25 mg IV q.8hr p.r.n. for systolic greater than 160. 3. CBC, CMP daily. 4. IV Solu-Cortef 125 mg q.8hr. 5. Routine telemetry. 6. Will do CT of the abdomen without contrast. 7. Protonix 40 mg b.i.d. 8. Routine telemetry orders with cardiac enzymes. 9. Toradol 30 mg IV q.8hr p.r.n. for pain. 10. Will follow closely. TIME SPENT: More than 70 minutes. MTDD
[2017-09-02 10:07] VITALS: BP 139/83
--- NOTE | 2017-09-02 11:19 | PCM.PROG ---
Attending Provider: ATTENDING PROVIDER: Dr. ALETHA CHIU This patient is seen with Cait Pina, Nurse Practitioner. DATE OF SERVICE: 09/02/17 SUBJECTIVE: This 52 year old BLACK/ F was hospitalized 08/31/17. The patient is sitting up in bed, alert. She states pain is better. She has been eating well. REVIEW OF SYSTEMS: CONSTITUTIONAL: No night sweats. No fatigue, malaise, lethargy. No fever or chills. HEENT: Eyes: No visual changes. No eye pain. No eye discharge. ENT: No runny nose. No epistaxis. No sinus pain. No odynophagia. No congestion. RESPIRATORY: No cough, no congestion. No hemoptysis. Shortness of breath on exertion. CARDIOVASCULAR: No angina symptoms. No CHF symptoms. No atypical chest pain for CAD. No palpitations. No orthopnea.. GASTROINTESTINAL: No abdominal pain. No nausea or vomiting. No diarrhea or constipation. No hematemesis. No hematochezia. GENITOURINARY: No urgency. No frequency. No dysuria. No hematuria. No obstructive symptoms. No discharge. No pain. No significant abnormal bleeding. MUSCULOSKELETAL: No musculoskeletal pain; no joint swelling. NEUROLOGICAL: Awake, alert, oriented to time, place and person. No headache. No neck pain. No syncope. No seizures. No dizziness. PSYCHIATRIC: Not anxious. No depression. No suicidal thoughts. No homicidal thoughts. SKIN: No rash. No lesions. No wounds. ENDOCRINE: No unexplained weight loss. No weight gain. HEMATOLOGIC/LYMPHATIC: No anemia. No purpura. No petechiae. No prolonged or excessive bleeding. No palpable lymph nodes. PHYSICAL EXAMINATION: GENERAL: The patient is awake, alert and oriented, sitting in bed in no distress. VITAL SIGNS: Temperature 98.6 F, Pulse 74, Respiratory Rate 18, BP 160/97, Pulse Ox 95% HEENT: Head normocephalic, atraumatic. Eyes: Extraocular muscles are intact. Pupils are equal, round and reactive to light and accommodation. Ears: No lesions. Nose appeared normal. Throat: No exudate or erythema. NECK: Supple. No JVD, no carotid bruit. No lymphadenopathy or thyromegaly. LUNGS: Diminished breath sounds bilaterally. Clear to auscultation. Percussion note normal. Chest symmetrical. HEART: Heart sounds normal. S1, S2, no S3. No murmurs. No cyanosis or clubbing. No ascites. Pulses: Dorsalis pedis and posterior tibial pulses +1 to +2 both sides. ABDOMEN: Soft. Non-tender. Bowel sounds active. No CVA tenderness. No mass felt. EXTREMITIES: No edema. Full range of motion of all extremities, equal. NEUROLOGIC: No focal deficit. Cranial nerves II through XII are grossly intact. No headache, no double vision or headache. SKIN: Not dry. Intact. Turgor-normal. LYMPHATIC: No palpable lymph nodes/no lymphedema. MUSCULOSKELETAL: Normal joints with no swelling. Muscle tone is normal. LAB REVIEW: 09/02/17 04:15 09/02/17 04:15 09/02/17 04:15: Sodium 138, Potassium 4.8, Chloride 107, Carbon Dioxide 21, Anion Gap 14.8, BUN 40 H, Creatinine 1.83 H, Estimated GFR (MDRD) 35.00, BUN/ Creatinine Ratio 21.85, Glucose 155 H, Calcium 8.6 09/02/17 04:15: WBC 14.09 H, RBC 3.52 L, Hgb 10.2 L, Hct 31.5 L, MCV 89.5, MCH 29.0, MCHC 32.4, RDW Coeff of Gabriela 13.5, Plt Count 107 L, Immature Gran % (Auto) 0.9, Neut % (Auto) 92.3, Lymph % (Auto) 4.2 L, [place] % (Auto) 2.5, Eos % (Auto) 0.0, Baso % (Auto) 0.1, Immature Gran # (Auto) 0.1, Neut # 13.0 H, Lymph # 0.6, [place] # 0.4, Eos # 0.0, Baso # 0.0 09/01/17 07:40: Sodium 137, Potassium 4.7, Chloride 103, Carbon Dioxide 24, Anion Gap 14.7, BUN 33 H, Creatinine 1.65 H D, Estimated GFR (MDRD) 40.00, BUN/ Creatinine Ratio 20.00, Glucose 156 H D, Calcium 9.3, Total Creatine Kinase 48, Troponin I < 0.0100 09/01/17 07:40: WBC 9.23, RBC 3.93 L, Hgb 11.5 L, Hct 34.6 L, MCV 88.0, MCH 29.3 , MCHC 33.2, RDW Coeff of Gabriela 13.2, Plt Count 115 L, Immature Gran % (Auto) 0.4 , Neut % (Auto) 92.2, Lymph % (Auto) 6.9 L, [place] % (Auto) 0.4, Eos % (Auto) 0.0 , Baso % (Auto) 0.1, Immature Gran # (Auto) 0.0, Neut # 8.5 H, Lymph # 0.6, [place] # 0.0 L, Eos # 0.0, Baso # 0.0 ASSESSMENT: 1. Pleuritic type chest pain. improved 2. Heart transplant 2011 3. History of recurrent UTI PLAN: 1. Intranasal Bactroban for 10 days 2. Cozaar 50 mg b.i.d. Plan and coordination of the patient's care discussed in the presence of End Stapler and nurse. CONDITION: Stable SCRIBED BY: TACOS GODINEZ Top Bottom Attaching Machine Operator scribed while in presence of service performed by Dr. Chiu/Cait Pina APRN on 09/02/17 ([id number])
--- NOTE | 2017-09-02 13:32 | CM.DICTOOL ---
ADMISSION: 08/31/17 17:01 DISCHARGE: 09/02/17 DATE OF SERVICE: 09/02/17 FINAL DIAGNOSIS ATYPICAL CHEST PAIN, LIKELY PLEURITIC IN NATURE HYPERTENSION HEART TRANSPLANT, 2012 ([facility]) CONGESTIVE HEART FAILURE BY HISTORY DYSLIPIDEMIA ANEMIA GERD OBESITY, (BMI 41.3) NEUROPATHY RECURRENT UTI (DR. VERONICA) ANXIETY HYSTERECTOMY DUE TO ENDOMETRIOSIS/CANCER LAST VITALS Temp Pulse Resp BP Pulse Ox 100.2 F H 84 20 139/83 91 L 09/02/17 10:00 09/02/17 10:00 09/02/17 10:00 09/02/17 10:00 09/02/17 10:00 ACTIVE MEDICATIONS Aspirin (Aspirin Chewable) 81 mg PO DAILYWM [facility] Last Admin: 09/02/17 09:00 Dose: 81 mg Azathioprine (Imuran) 25 mg PO BEDTIME [facility] Last Admin: 09/01/17 21:05 Dose: 25 mg Calcium/Vitamin D (Calcium 500 + Vit D 200 Mg Tablet) 1 each PO BID [facility] Last Admin: 09/02/17 09:00 Dose: 1 each Duloxetine HCl (Cymbalta) 60 mg PO DAILY [facility] Last Admin: 09/02/17 09:00 Dose: 60 mg Ferrous Sulfate (Ferrous Sulfate) 324 mg PO BID [facility] Last Admin: 09/02/17 09:00 Dose: 324 mg Gabapentin (Neurontin) 100 mg PO BID [facility] Last Admin: 09/02/17 09:01 Dose: 100 mg Lorazepam (Ativan) 0.5 mg PO BEDTIME PRN PRN Reason: Anxiety Losartan Potassium (Cozaar) 50 mg PO BID [facility] (INCREASED DOSE) Last Admin: 09/02/17 09:00 Dose: 50 mg Metoprolol Tartrate (Lopressor) 25 mg PO BEDTIME [facility] Last Admin: 09/01/17 21:05 Dose: 25 mg Multivitamins (Multivitamin Tablet) 1 tab PO DAILY [facility] Last Admin: 09/02/17 09:01 Dose: 1 tab Mupirocin (Bactroban) 1 applic TP BID [facility] (NEW MEDICATION) Last Admin: 09/02/17 09:01 Dose: 1 applic Nitrofurantoin Macrocrystals (Macrodantin) 100 mg PO BEDTIME [facility] Last Admin: 09/01/17 21:04 Dose: 100 mg Tacrolimus [Prograf] 6 mg PO BID [facility] Last Admin: 09/02/17 08:59 Dose: 6 mg Pantoprazole Sodium (Protonix) 40 mg PO BIDAC [facility] Last Admin: 09/02/17 05:54 Dose: 40 mg Pravastatin Sodium (Pravachol) 40 mg PO BEDTIME [facility] Last Admin: 09/01/17 21:06 Dose: 40 mg Prednisone 5 mg PO DAILYWM (HELD UNTIL 10 MG PO BID X 5 DAYS COMPLETED) Trimethoprim/Sulfamethoxazole (Bactrim Ds 800/160 Mg) 1 tab PO Q12HR [facility] Last Admin: 09/02/17 09:05 Dose: 1 tab ALLERGIES No Known Allergies Allergy (Verified 08/31/17 13:21) NEW PRESCRIPTIONS: PLEASE NOTE THE INCREASE IN YOUR COZAAR FROM 50 MG DAILY TO 50 MG TWICE DAILY PLEASE DO NOT TAKE YOUR PREDNISONE 5 MG DAILY UNTIL FINISHED WITH THE 5 DAY INCREASED DOSE NEW MEDICATIONS PROTONIX 40 MG, TAKE ONE TABLET BY MOUTH EVERY MORNING BEFORE BREAKFAST BACTROBAN, APPLY TO EACH NOSTRIL TWICE DAILY FOR 10 DAYS (HOSPITAL SUPPLY WILL BE GIVEN) PREDNISONE 10 MG, TAKE ONE TABLET BY MOUTH TWICE DAILY FOR 5 DAYS WITH FOOD. FOLLOWING THE 5 DAYS RESUME YOUR PREDNISONE 5 MG BY MOUTH DAILY SMOKING: NEVER SMOKER DISEASE SPECIFIC EDUCATION: ATYPICAL CHEST PAIN GERD HYPERTENSION HOME MEDICATIONS NEW MEDICATIONS FOLLOW UP VISITS LAB REVIEW: 09/02/17 04:15 09/02/17 04:15 09/02/17 04:15: Sodium 138, Potassium 4.8, Chloride 107, Carbon Dioxide 21, Anion Gap 14.8, BUN 40 H, Creatinine 1.83 H, Estimated GFR (MDRD) 35.00, BUN/ Creatinine Ratio 21.85, Glucose 155 H, Calcium 8.6 09/02/17 04:15: WBC 14.09 H, RBC 3.52 L, Hgb 10.2 L, Hct 31.5 L, MCV 89.5, MCH 29.0, MCHC 32.4, RDW Coeff of Gabriela 13.5, Plt Count 107 L, Immature Gran % (Auto) 0.9, Neut % (Auto) 92.3, Lymph % (Auto) 4.2 L, [place] % (Auto) 2.5, Eos % (Auto) 0.0, Baso % (Auto) 0.1, Immature Gran # (Auto) 0.1, Neut # 13.0 H, Lymph # 0.6, [place] # 0.4, Eos # 0.0, Baso # 0.0 PLAN: DISCHARGE HOME TODAY RETURN TO SEE DR. CHIU IN 5-7 DAYS. PLEASE PHONE HIS OFFICE TO SCHEDULE YOUR FOLLOW UP APPOINTMENT ([phone]) RESUME YOUR HOME MEDICATIONS PER LIST PROVIDED BY THE NURSING STAFF PLEASE NOTE THE INCREASE IN YOUR COZAAR FROM 50 MG DAILY TO 50 MG TWICE DAILY PLEASE DO NOT TAKE YOUR PREDNISONE 5 MG DAILY UNTIL 5 DAY INCREASED DOSE IS COMPLETED NEW MEDICATIONS PROTONIX 40 MG, TAKE ONE TABLET BY MOUTH EVERY MORNING BEFORE BREAKFAST BACTROBAN, APPLY TO EACH NOSTRIL TWICE DAILY FOR 10 DAYS (HOSPITAL SUPPLY WILL BE GIVEN) PREDNISONE 10 MG, TAKE ONE TABLET BY MOUTH TWICE DAILY FOR 5 DAYS WITH FOOD FOLLOWING THE 5 DAYS RESUME YOUR PREDNISONE 5 MG BY MOUTH DAILY ACTIVITY GET PLENTY OF REST AT HOME. GRADUALLY INCREASE YOUR ACTIVITY LEVEL ACCORDING TO YOUR TOLERATION DIET HEALTHY HEART SUMMARY THE PATIENT IS ALERT AND ORIENTED X3. SHE CURRENTLY RESIDES AT HOME WITH HER SON AND HAS BEEN INDEPENDENT WITH [employer]L'[employer]. AT HOME SHE HAS A C-PAP FOR USE AT NIGHT. SHE DOES NOT CURRENTLY UTILIZE HOME HEALTH OR HOMEMAKING SERVICES. HER FAMILY ARE VERY SUPPORTIVE OF HER NEEDS WHEN NECESSARY. SHE DESIRES TO RETURN TO HER HOME AT DISCHARGE. HER SKIN TURGOR IS INTACT AND WITHOUT DECUBITUS ULCERS. SHE IS TAKING LIQUIDS WELL AND HAS A GOOD APPETITE. SHE IS AWARE AND AGREEABLE FOR TODAY'S DISCHARGE PLANS. CURRENT CODE STATUS FULL CODE KEYANNA MEANS APRN ALETHA CHIU M.D.
[2017-09-02 13:41] VITALS: TEMP 98.4
--- NOTE | 2017-09-07 10:20 | DS ---
DATE OF SERVICE: 09/02/17 FINAL DIAGNOSIS: 1. ATYPICAL CHEST PAIN, LIKELY PLEURITIC IN NATURE 2. HYPERTENSION 3. HEART TRANSPLANT, 2012 ([facility]) 4. CONGESTIVE HEART FAILURE BY HISTORY 5. DYSLIPIDEMIA 6. ANEMIA 7. GERD 8. OBESITY (BMI 41.3) 9. NEUROPATHY 10. RECURRENT UTI (DR. VERONICA) 11. ANXIETY 12. HYSTERECTOMY DUE TO ENDOMETRIOSIS/CANCER DISCHARGE INSTRUCTIONS: Followup appointment: Return to see Dr. Zimmerman in 5 to 7 days. Please phone his office to schedule your followup appointment. [phone]. MEDICATIONS AT DISCHARGE: Aspirin 81 mg p.o. daily with meal [facility] Imuran 25 mg p.o. bedtime [facility] Calcium/Vitamin D one each p.o. b.i.d. [facility] Cymbalta 60 mg p.o. daily [facility] Ferrous Sulfate 324 mg p.o. b.i.d. [facility] Neurontin 100 mg p.o. b.i.d. Ativan 0.5 mg p.o. bedtime p.r.n. Cozaar 50 mg p.o.b.i.d. [facility] (increased dose) Lopressor 25 mg p.o. bedtime [facility] Multivitamin one tab p.o. daily [facility] Bactroban one application TP b.i.d. [facility] (new medication) Macrodantin 100 mg p.o. bedtime [facility] Prograf 6 mg p.o. b.i.d. [facility] Protonix 40 mg p.o. b.i.d. a.c. [facility] Pravachol 40 mg p.o. bedtime [facility] Prednisone 5 mg p.o. daily with meal (held until 10 mg p.o.b.i.d. times 5 days completed) Bactrim DS 800/160 mg one tab p.o.q .12hr [facility] NEW PRESCRIPTIONS: Please note the increase in your Cozaar from 50 mg daily to 50 mg twice daily. Please do not take your Prednisone 5 mg daily until finished with the 5-day increased dose. Protonix 40 mg one tablet p.o. each morning before breakfast Bactroban apply to each nostril twice daily for 10 days (hospital supply will be given) Prednisone 10 mg take one tablet by mouth twice daily for 5 days with food Following the five days resume your Prednisone 5 mg by mouth daily DIET INSTRUCTIONS: Heart Healthy ACTIVITY: Get plenty of rest at home. Gradually increase your activity level according to your toleration. SMOKING: Never smoker DISEASE SPECIFIC EDUCATION: Atypical chest pain GERD Hypertension Home Medications New medications Follow up visits HOSPITAL COURSE: This is a 52-year-old -[place] female who presented to the emergency room with pleuritic type chest pain. She stated she had had some cough, was experiencing some chest tightness and pain with coughing. She has a history of a heart transplant in 2012 due to cardimyopathy after . She has hypertension, is obese. She does not smoke. Cardiac enzymes were all normal. She was started on Solu-Cortef 125 mg q.8hr along with Toradol 30 mg IV q.8hr. Her blood pressure has been somewhat elevated. We increased her Cozaar to 50 mg b.i.d.. After having IV steroids for the past 36 hours she states her pain is significantly improved. She is not experiencing any shortness of breath. She has been up and about. She is eating well. She is not coughing. Chest x-ray was normal, showed no signs or symptoms of infection. Dr. Zimmerman performed an echo which was within normal limits, showed no signs or symptoms of CHF. She will be discharged home on Prednisone 10 mg b.i.d. for the next five days. Her labs have been stable. Hemoglobin 10.2, hematocrit 31.5, white count 14.09, platelets 107, sodium 138, potassium 4.8, BNP was 131. Vital signs today: Temperature 98.6, heart rate 74, respirations 18, pulse ox 95 %. The patient will be discharged home with increased Cozaar for hypertension at 50 mg b.i.d. All other home medications will continue. She is on Bactrim 400 mg Friday, Friday and Friday for history of recurrent lung infection. She is also on Macrobid 100 mg daily for recurrent UTI. UA was within normal limits and again chest x-ray was within normal limits. She showed no signs or symptoms of any type of infection, has been afebrile. She is in stable condition, significantly improved. We will see her in the office next week. TIME SPENT: More than 60 minutes. [facility]
--- NOTE | 2017-09-08 13:05 | PN ---
DATE OF SERVICE: 09/01/17 SUBJECTIVE: The patient was hospitalized with chest pain. The patient's chest pain was more like pleuritic type, more intense when she coughs in the center of the chest going through to the back. Also has some symptoms of reflux. She has been put on Protonix also along with Toradol and steroids. The patient's condition has improved. She is up and about. Her cardiovascular status is stable. The patient was seen and examined with the nurse practitioner. TIME SPENT: More than 30 minutes. Plan and coordination of the patient's care discussed in the presence of nurse. LINDA
--- NOTE | 2017-09-08 13:37 | PN ---
DATE OF SERVICE: 09/02/17 SUBJECTIVE: The patient is up and about. No chest pain. No PND, no orthopnea. No palpitations. REVIEW OF SYSTEMS: CONSTITUTIONAL: No night sweats. No fatigue, malaise, lethargy. No fever or chills. HEENT: Eyes: No visual changes. No eye pain. No eye discharge. ENT: No runny nose. No epistaxis. No sinus pain. No sore throat. No odynophagia. No congestion. RESPIRATORY: No cough, no congestion. No hemoptysis. No shortness of breath. CARDIOVASCULAR: No angina symptoms. No CHF symptoms. No atypical chest pain for CAD. No palpitations. No orthopnea. GASTROINTESTINAL: No abdominal pain. No nausea or vomiting. No diarrhea or constipation. No hematemesis. No hematochezia. GENITOURINARY: No urgency. No frequency. No dysuria. No hematuria. No obstructive symptoms. No discharge. No pain. No significant abnormal bleeding. MUSCULOSKELETAL: No musculoskeletal pain; no joint swelling. NEUROLOGICAL: No headache. No neck pain. No syncope. No seizures. No dizziness. PSYCHIATRIC: Not anxious. No depression. No suicidal thoughts. No homicidal thoughts. SKIN: No rash. No lesions. No wounds. ENDOCRINE: No unexplained weight loss. No weight gain. HEMATOLOGIC/LYMPHATIC: No anemia. No purpura. No petechiae. No prolonged or excessive bleeding. No palpable lymph nodes. PHYSICAL EXAMINATION: HEENT: Head normocephalic, atraumatic. Eyes: Extraocular muscles are intact. Pupils are equal, round and reactive to light and accommodation. Ears: No lesions. Nose appeared normal. Throat: No exudate or erythema. NECK: Supple. No JVD, no carotid bruit. No lymphadenopathy or thyromegaly. LUNGS: Decreased breath sounds but clear to auscultation. Percussion note normal. Chest symmetrical. HEART: S1, S2, no S3. No murmurs. No cyanosis or clubbing. No ascites. Pulses: Dorsalis pedis and posterior tibial pulses +1 to +2 both sides. ABDOMEN: Soft. Nontender. Bowel sounds active. No CVA tenderness. No mass felt. EXTREMITIES: No edema. Full range of motion of all extremities, equal. NEUROLOGIC: No focal deficit. Cranial nerves II through XII are grossly intact. No headache, no double vision or headache. SKIN: Not dry. Intact. Turgor - normal. LYMPHATIC: No palpable lymph nodes/no lymphedema. MUSCULOSKELETAL: Normal joints with no swelling. Muscle tone is normal. The patient's chest pain which is pleuritic has subsided, could be along with pleurisy. The patient could have reflux and will have echocardiogram done. She is stable enough to be discharged. The patient was seen and examined with nurse practitioner and caser up. CONDITION: Stable TIME SPENT: More than 30 minutes. Plan and coordination of the patient's care discussed in the presence of nurse. LINDA
--- NOTE | 2017-09-08 13:39 | PN ---
CODING FOR BILLING 08/31/17 ADMISSION DATE LEVEL 5 09/01/17 INTERMEDIATE 09/02/17 DISCHARGE MTDD
== END 2017-09-02 14:25 | disposition home or self-care (01) | DRG 313 ==
LOC: ED 13:15 → MEDSURG B 17:01
PROVIDERS: ADMIT Internal Medicine; ATTEND Internal Medicine
DX: R07.9 Chest pain, unspecified (principal); Z94.1 Heart transplant status; Z68.41 Body mass index [BMI] 40.0-44.9, adult; J20.9 Acute bronchitis, unspecified; R09.1 Pleurisy; R06.02 Shortness of breath; I10 Essential (primary) hypertension; E66.9 Obesity, unspecified; I50.9 Heart failure, unspecified; E78.5 Hyperlipidemia, unspecified; D64.9 Anemia, unspecified; K21.9 Gastro-esophageal reflux disease without esophagitis; R10.816 Epigastric abdominal tenderness; R11.0 Nausea; R19.7 Diarrhea, unspecified; G62.9 Polyneuropathy, unspecified; F41.9 Anxiety disorder, unspecified; Z87.440 Personal history of urinary (tract) infections; Z85.42 Personal history of malignant neoplasm of other parts of uterus; Z79.899 Other long term (current) drug therapy
CPT/HCPCS: 36415; 80048; 80053; 82550; 83880; 84484; 85025; 85379; 87081; 93005; 93010; 96361; 96374; 99284

== ENCOUNTER 2017-10-10 09:17 | Outpatient (CLI) ==
[2013-03-25 15:49] VITALS: TEMP 98.6
== END 2017-10-10 09:18 | disposition home or self-care (01) ==
LOC: LAB 09:17
PROVIDERS: ATTEND Internal Medicine
DX: Z94.1 Heart transplant status (principal); Z48.298 Encounter for aftercare following other organ transplant; Z79.899 Other long term (current) drug therapy; N28.9 Disorder of kidney and ureter, unspecified
CPT/HCPCS: 36415; 80048; 80197; 85025

== ENCOUNTER 2018-01-02 09:22 | Outpatient (CLI) ==
[2013-03-25 15:49] VITALS: TEMP 98.6
== END 2018-01-02 09:23 | disposition home or self-care (01) ==
LOC: LAB 09:22
PROVIDERS: ATTEND Internal Medicine
DX: Z94.1 Heart transplant status (principal); Z48.298 Encounter for aftercare following other organ transplant; Z79.899 Other long term (current) drug therapy; N28.9 Disorder of kidney and ureter, unspecified
CPT/HCPCS: 36415; 80048; 80197; 85025

== ENCOUNTER 2018-01-06 06:37 | Day surgery (SDC) | payer OTHER ==
[2018-01-06] MEDS ORDERED: LIDOCAINE 1% 20 ML MDV ID STA (07:10)
[2018-01-06] MEDS ORDERED: ZOFRAN 4 MG/2 ML IVP STA (07:31)
[2018-01-06] MEDS ORDERED: VERSED ONE (08:00)
[2018-01-06] MEDS ORDERED: DIPRIVAN 20 ML VIAL IVP ONE (08:00)
[2018-01-06 15:06] VITALS: BP 130/79; TEMP 97.3
--- NOTE | 2018-01-07 13:00 | OP ---
INDICATIONS FOR PROCEDURE: 52 year old female present for her first ever screening colonoscopy exam. She does have a sister with a history polyp with unknown histology at age 47. MEDICATIONS: SEE ANESTHESIA NOTES. PROCEDURE: COLONOSCOPY SNARE POLYPECTOMY, BIOPSY REPORT: The risks, benefits, alternatives and limitations were discussed in detail with the patient. Informed consent was obtained. After adequate sedation was achieved, a digital rectal exam revealed good tone, no masses. The colonoscope was introduced into the rectum and advanced under direct visual guidance to the cecum. The cecum was identified by the appendiceal orifice and IC valve. I then slowly withdrew the scope in circumferential manner and examined the mucosa quite carefully. I looked on the proximal and distal sides of fold and flexure as best as possible. I was able to retroflex the scope in the right colon and the left colon to increase visualization. In the very proximal transverse colon just distal to the hepatic flexures there was a pedunculated polyp. This polyp about 8-9mm in size. It was removed by snare technique. The polyp was successfully retrieved in one piece. Withdrawing the scope further from this polypectomy site revealed no other abnormalities throughout the entire colon. When I reached the anal canal I could see what looked like small polyp scattered throughout the anal canal tract. This was also noted on retroflex view. I was pass the dentate line. Question if this was multiple small condylomatous. I biopsied this for histological review. I biopsied four of the different small lesions. No other abnormalities were noted. The prep on the patient was excellent. The withdraw time was 18 minutes and 10 seconds. The patient tolerated the procedure well with stable vital signs and pulse oximetry throughout. IMPRESSION: 1. Single pedunculated polyp removed from the proximal transverse colon 2. Questionable small polypoid lesions in the anal canal that I question if this not small condylomatous. RECOMMENDATIONS: 1. Await pathology of the polyp 2. Await biopsy results of the anal canal. If these do show multiple small condylomatous or any other precancerous lesion then I recommend referral to surgery for evaluation and treatment. 3. I will see her back in the office as needed 4. We will contact her about the pathology results and I asked her to contact our office as well. 5. Plan repeat colonoscopy examination again in 3-5 years pending pathology results or sooner if the patient were to develop any signs or symptoms. CC: Dr. Erasmo Diaz at [facility]
== END 2018-01-06 09:30 | disposition home or self-care (01) ==
LOC: SURG 06:37
PROVIDERS: ATTEND Internal Medicine Gastroenterology
DX: Z12.11 Encounter for screening for malignant neoplasm of colon (principal); D12.3 Benign neoplasm of transverse colon; A63.0 Anogenital (venereal) warts; Z83.71 Family history of colonic polyps

== ENCOUNTER 2018-01-29 14:10 | Outpatient (CLI) | payer OTHER ==
[2013-03-25 15:49] VITALS: TEMP 98.6
== END 2018-01-29 14:11 | disposition home or self-care (01) ==
LOC: LAB 14:10
PROVIDERS: ATTEND Internal Medicine
DX: E87.5 Hyperkalemia (principal)
CPT/HCPCS: 36415; 80053

== ENCOUNTER 2018-03-06 09:31 | Outpatient (CLI) | payer OTHER ==
[2013-03-25 15:49] VITALS: TEMP 98.6
--- NOTE | 2018-03-06 10:36 | DI ---
EXAM: CHEST FRONTAL AND LATERAL VIEWS HISTORY: Shortness of breath. COMPARISON: 11/07/2016 FINDINGS: Prominent heart size is stable. Prior sternotomy. There is eventration of the left hemid iaphragm. Several discoid densities are seen adjacent to this diaphragm similar to that previously s een. Lungs are otherwise clear. No vascular congestion, visible pleural fluid or pneumothorax. IMPRESSION: Eventration of the left hemidiaphragm with at least mild adjacent discoid consolidation. Consider atelectasis or mild pneumonia.
== END 2018-03-06 09:32 | disposition home or self-care (01) ==
LOC: RAD 09:31
PROVIDERS: ATTEND Internal Medicine
DX: E78.5 Hyperlipidemia, unspecified (principal); I10 Essential (primary) hypertension; E11.9 Type 2 diabetes mellitus without complications; R06.02 Shortness of breath; Z94.1 Heart transplant status
CPT/HCPCS: 36415; 80053; 80061; 83036; 84439; 84443; 85025

== ENCOUNTER 2018-03-10 12:35 | Outpatient (CLI) ==
[2013-03-25 15:49] VITALS: TEMP 98.6
== END 2018-03-10 12:36 | disposition home or self-care (01) ==
LOC: CAR 12:35
PROVIDERS: ATTEND Internal Medicine
DX: R06.02 Shortness of breath (principal)

== ENCOUNTER 2018-04-08 09:16 | Outpatient (CLI) ==
[2013-03-25 15:49] VITALS: TEMP 98.6
== END 2018-04-08 09:17 | disposition home or self-care (01) ==
LOC: LAB 09:16
PROVIDERS: ATTEND Internal Medicine
DX: Z94.1 Heart transplant status (principal); Z48.298 Encounter for aftercare following other organ transplant; Z79.899 Other long term (current) drug therapy; N28.9 Disorder of kidney and ureter, unspecified
CPT/HCPCS: 36415; 80048; 80197; 85025

== ENCOUNTER 2018-04-21 07:29 | Outpatient (CLI) ==
[2013-03-25 15:49] VITALS: TEMP 98.6
--- NOTE | 2018-04-21 08:59 | CT ---
EXAM: CT lumbar spine without contrast HISTORY: Left sciatica COMPARISON: None TECHNIQUE: CT lumbar spine performed without intravenous contrast. Coronal and sagittal reformatted images obtained. FINDINGS: Vertebral bodies normal height. No fracture. No subluxation. Intervertebral disc spaces maintained. Sacroiliac joints intact with moderate sclerosis and degenerative change about the righ t sacroiliac joint. Minimal degenerative changes about the left sacroiliac joint. T12-L1: No central canal or neural foraminal narrowing. L1-L2: No central canal or neural foraminal narrowing. L2-L3: No central canal neural foramen. L3-L4: Posterior disc osteophyte complex and facet arthrosis causing mild right neural foraminal nurys rowing. L4-L5: Posterior disc osteophyte complex and facet arthrosis causing mild to moderate right and mild left neural foraminal narrowing. L5-S1: Posterior disc osteophyte complex and facet arthrosis causing mild bilateral neural foraminal narrowing. IMPRESSION: 1. Chronic discogenic degenerative disease and facet arthrosis. Please see segmental analysis, noti ng multilevel neural foraminal narrowing. 2. Right sacroiliitis.
== END 2018-04-21 07:30 | disposition home or self-care (01) ==
LOC: RAD 07:29
PROVIDERS: ATTEND Internal Medicine
DX: M54.32 Sciatica, left side (principal)

== ENCOUNTER 2018-07-10 10:00 | Outpatient (RCR) | payer OTHER ==
[2013-03-25 15:49] VITALS: TEMP 98.6
--- NOTE | 2018-06-17 15:59 | RS.OPPTEV2 ---
Date of Note: 06/17/18 Visit #: 1 Date of Evaluation: 06/17/18 Payer Source: MEDICARE Surgery Performed?: No Treatment Diagnosis: sciatica, sacroilitis History of Condition/Mechanism of Injury:: pt states that pain began about a month ago. States she just finished steriod pack so she isn't hurting now just feels tight. Prior Level of Function.....Patient was independent with: ADL's, Self Care, Work /Vocation, Caregiving, Ambulation/Mobility, Community Integration/Access Level of Function: pt works 3 days a week parttime for [employer]. Functional Limitations: Reaching, Pushing, Pulling, Lifting, Squatting, Ambulation, Community Access/Integration Current Subjective/complaints:: pt states that she is currently not having pain , however does feel "tight" in lumbosacral spine. 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 Treatment Side (optional): N/A *Precautions: n/a Medical History Medical History: Hypertension, Arthritis Surgical History Comments:: heart transplant 2011, anal lesians removed 12/2017 Smoking Status: Never smoker Hx Home Medications: pt did not bring list of medications. Patient's Goals: Decrease tightness and prevent pain from returning in lumbar spine Pain Assessment - Pain Description Pain Location: lumbosacral area Other Comments regarding Pain:: pt reports no "pain" only "tightness" Functional Outcome Measure Oswestry LBP: 18 (36%) - G Codes & Severity Modifier G Codes & Modifier: mobility walking and moving around current CJ. mobility walking and moving around goal CI Source of G Code score: oswestry low back pain scale. Observation - Observation Posture: Forward Head, Rounded Shoulders, Increased Thoracic Kyphosis, Decreased Lumbar Lordosis Handedness: Right Gait - Gait Pattern General Gait Pattern Observation: No Deviations/Normal General Range of Motion: BUE and BLE WFL's Muscle Strength: BUE 5/5. BLE 5/5 - ROM Lumbar Flexion: Hand reach to ankles Sidebending to Left: Reach to Lateral Joint Line Sidebending to Right: Reach to Lateral Joint Line Lumbar Spine ROM Limitations: Soft Tissue Tightness, Muscle Weakness, Pain - Strength Trunk Extension: 4- Good- Trunk Flexion: 3+ Fair+ Trunk Lateral Flexion: 3 Fair - Special Tests SLR Test: Negative Left, Negative Right Seated Dural Stretch Test: Negative Left, Negative Right SI Joint Compression: Positive Palpation Palpation Findings: Muscle Guarding (pt presents with muscle guarding in lower lumbar/sacral area, no tenderness to palpation, no trigger points) Sensation - Sensation Right Upper Extremity: Intact/Normal Left Upper Extremity: Intact/Normal Right Lower Extremity: Intact/Normal Left Lower Extremity: Impaired (pt with n/t LLE in lateral thigh and lat lower leg.) Balance - Sitting Balance Static Sitting Balance: Normal Dynamic Sitting Balance: Normal - Standing Balance Static Standing Balance: Good Dynamic Standing Balance: Good - Heat/Cryotherapy Treatment: Hot Pack Comments:: lumbar/sacral area Interventions - Exercise/Activities/Manual Therapy Exercises/Activities: pt performed hamstring stretch, piriformis stretch, isometric hip add, resisted hip abd Manual Therapy: n/a HOME EXERCISE PROGRAM: pt given written HEP including knee to chest, hamstring stretch, piriformis stretch, isometric hip add, resisted hip abd with green t band. - Charges Timed Code Treatment Minutes: 47 Total Treatment Time: 59 Procedures billed for this date of service:: eval med, hot pack EVALUATION COMPLEXITY LEVEL EVALUATION COMPLEXITY LEVEL: HISTORY: Medium (HTN, OA, back pain, s/p heart transplant), EXAM OF BODY SYSTEMS: Medium (muscle tightness, posture, strength) , CLINICAL PRESENTATION: Medium, CLINICAL DECISION MAKING: Medium Assessment Assessment: pt presents with tightness in BLE hamstring and piriformis L worse than R. pt also with muscle guarding in lumbosacral spine. No radicular pain noted this visit. Core muscle weakness noted. Patient Education: Home Exercise Program, Education of Plan of Care Rehab Potential: Good Short Term Goals Goal #1: pt independent with initial HEP Goal to be met by: 07/01/18 Goal #2: pt with decreased hamstring and piriformis tightness LLE equal to RLE Goal to be met by: 07/01/18 Goal #3: pt report able to perform home and job tasks without increased pain Goal to be met by: 07/01/18 Field Control Inspector Goals Goal #1: pt with decreased muscle tightness B hamstring and piriformis WFL's Goal to be met by: 07/10/28 Goal #2: pt with no reports of pain with activity Goal to be met by: 07/10/18 Goal #3: pt independent with HEP to maintain gains after dc Goal to be met by: 07/10/18 Plan - Treatment to be Provided Procedures: Therapeutic Exercises, Therapeutic Activity, Manual Therapy, Massage , Patient Education Modalities: Electrical Stimulation, Ultrasound/Phonophoresis, Cryotherapy, Hot Packs - Treatment Plan Frequency: 2 X week Duration: 3 weeks ORDER # VISITS AND/OR THROUGH DATE: 07/10/18 - Treatment Code (1) Muscle tightness Code(s): M62.89 - OTHER SPECIFIED DISORDERS OF MUSCLE (2) Low back pain Code(s): M54.5 - LOW BACK PAIN Qualifiers: Chronicity: unspecified Back pain laterality: unspecified (3) Muscle weakness Code(s): M62.81 - MUSCLE WEAKNESS (GENERALIZED)
--- NOTE | 2018-06-23 14:20 | RS.CXNS ---
Date of scheduled appointment: 06/23/18 Type: Rescheduled
--- NOTE | 2018-06-26 11:01 | RS.CXNS ---
Date of scheduled appointment: 06/26/18 Type: Cancel Reason for Cancel/NS: Sick family member
--- NOTE | 2018-07-03 11:13 | RS.OPPTDN ---
Subjective Date of Note: 07/03/18 Visit #: 2 Date of Evaluation: 06/17/18 Payer Source: MEDICARE Treatment Diagnosis: sciatica, sacroilitis Current Subjective/complaints:: Patient reports the reason she could keep appts. was due to a in her family.She has LBP today,radiating into the L hip. *Precautions: n/a Pain Assessment - Pain Description Pain Location: lumbar and L hip Pain Description: Dull, Throbbing, Aching, Chronic Current Pain Intensity: 4 Worst Pain Intensity: 10 - Heat/Cryotherapy Treatment: Hot Pack (20 mins. prior to exercises) Interventions - Exercise/Activities/Manual Therapy Exercises/Activities: 25 mins. total ,copies given also of pelvic tilts SKTC, DKTC,LTR,90/90 hamstring stretches,piriformis stretches. Manual Therapy: n/a HOME EXERCISE PROGRAM: pt given written HEP including knee to chest, hamstring stretch, piriformis stretch, isometric hip add, resisted hip abd with green t band. - Charges Timed Code Treatment Minutes: 45 Total Treatment Time: 45 Procedures billed for this date of service:: hp,ex 2 Assessment: Patient requires tactile and verbal cues for HEP,but is motivated to improve.She reports relief after moist heat today,but she reports the pain generally elevates as the day progresses. Patient Education: Education of diagnosis, Body/Joint mechanics, Home Exercise Program, Home Safety, Activity Modification, Education of Plan of Care Patient demonstrates compliance with HEP?: Yes Short Term Goals Goal #1: pt independent with initial HEP Goal to be met by: 07/01/18 Progress towards Goal:: Progressing Goal #2: pt with decreased hamstring and piriformis tightness LLE equal to RLE Goal to be met by: 07/01/18 Progress towards Goal:: Progressing Goal #3: pt report able to perform home and job tasks without increased pain Goal to be met by: 07/01/18 Title Camera Operator Goals Goal #1: pt with decreased muscle tightness B hamstring and piriformis WFL's Goal to be met by: 07/10/28 Goal #2: pt with no reports of pain with activity Goal to be met by: 07/10/18 Goal #3: pt independent with HEP to maintain gains after dc Goal to be met by: 07/10/18 Plan PLAN OF CARE EXPIRES ON:: 07/10/18 ORDER # VISITS AND/OR THROUGH DATE: 07/10/18 PLAN: Continue PT to eliminate back pain ,educate pateint for better body mechanics.
--- NOTE | 2018-07-08 11:25 | RS.OPPTDN ---
Subjective Date of Note: 07/08/18 Visit #: 3 Date of Evaluation: 06/17/18 Payer Source: MEDICARE Treatment Diagnosis: sciatica, sacroilitis Current Subjective/complaints:: Patient c/o L buttock pain and tightness. But, reports she also has soreness into the R hip and buttock too. She says previous treatment seemed to help. Requests HEP due to loosing handout. *Precautions: n/a - Heat/Cryotherapy Treatment: Hot Pack (mid to low back and hips/buttock in supine x 20 mins) Interventions - Exercise/Activities/Manual Therapy Exercises/Activities: Patient receives passive SKTC, HS, Piriformis, Figure 4, lower trunk rotation x 3 bilaterally. She performs: isometric hip abd/flexion/ add. Patient education on these exercises and their benefits. Total minutes of Exercise: 24 Manual Therapy: n/a HOME EXERCISE PROGRAM: pt given written HEP including knee to chest, hamstring stretch, piriformis stretch, isometric hip add, resisted hip abd with green t band. - Charges Timed Code Treatment Minutes: 24 Total Treatment Time: 44 Procedures billed for this date of service:: hp, ex2 Assessment: Patient experiencing mild pain reduction with heat and therex today. She has been having soreness into both hips/buttocks prior to therex this morning and was relieved with stretches. Explained handout and stretches to patient. She is able to perform trunk stability without any difficulty. Patient Education: Education of diagnosis, Body/Joint mechanics, Home Exercise Program Short Term Goals Goal #1: pt independent with initial HEP Goal to be met by: 07/01/18 Progress towards Goal:: Progressing Goal #2: pt with decreased hamstring and piriformis tightness LLE equal to RLE Goal to be met by: 07/01/18 Progress towards Goal:: Progressing Goal #3: pt report able to perform home and job tasks without increased pain Goal to be met by: 07/01/18 Senior Care Goals Goal #1: pt with decreased muscle tightness B hamstring and piriformis WFL's Goal to be met by: 07/10/28 Goal #2: pt with no reports of pain with activity Goal to be met by: 07/10/18 Goal #3: pt independent with HEP to maintain gains after dc Goal to be met by: 07/10/18 Plan PLAN OF CARE EXPIRES ON:: 07/10/18 ORDER # VISITS AND/OR THROUGH DATE: 07/10/18 PLAN: Patient to attend one more session per order to continue with core/trunk stability and provide these for home.
--- NOTE | 2018-07-10 11:45 | RS.OPPTDN ---
Subjective Date of Note: 07/10/18 Visit #: 4 Date of Evaluation: 06/17/18 Payer Source: MEDICARE Treatment Diagnosis: sciatica, sacroilitis Current Subjective/complaints:: Patient c/o ache to both hips. Says she still has tightness to the L LE. *Precautions: n/a Pain Assessment - Pain Description Pain Location: 6-8/10 avg to low back and LE's to the knee anteriorally and laterally - Heat/Cryotherapy Treatment: Hot Pack (mid to low back and hips in supine) Interventions - Exercise/Activities/Manual Therapy Exercises/Activities: Patient receives passive SKTC, HS, Piriformis, Figure 4, lower trunk rotation x 3 bilaterally. She performs: isometric hip abd/flexion/ add. Green tband for hooklying hip abd (given for home), DF with green tband, SAQ 1 10/14# bilaterally 2x10. Assessed Oswestry LBP Scale and provided progressed HEP. Total minutes of Exercise: 30 Manual Therapy: n/a HOME EXERCISE PROGRAM: pt given written HEP including knee to chest, hamstring stretch, piriformis stretch, isometric hip add, resisted hip abd with green t band. - Objective Findings Observations,measurements,etc.: Score: 20 or 40% impaired showing worse than eval of 18 or 36% - Charges Timed Code Treatment Minutes: 30 Total Treatment Time: 55 Procedures billed for this date of service:: ruddy, ex2 Assessment: Patient continues with back pain and bilateral hip ache. She admits L LE symptoms have been this way for a long time, but ache has been recent with unknown reasoning. She ziggy all stretching and stability well. She appears attentive to HEP and educ on body mechanics. LTG dates have as of today and she has completed available PT. Patient Education: Body/Joint mechanics, Home Exercise Program, Education of Plan of Care Short Term Goals Goal #1: pt independent with initial HEP Goal to be met by: 07/01/18 Progress towards Goal:: Progressing Goal #2: pt with decreased hamstring and piriformis tightness LLE equal to RLE Goal to be met by: 07/01/18 Progress towards Goal:: Progressing Goal #3: pt report able to perform home and job tasks without increased pain Goal to be met by: 07/01/18 Progress towards Goal:: No Change Finish Painter Goals Goal #1: pt with decreased muscle tightness B hamstring and piriformis WFL's Goal to be met by: 07/10/28 Progress towards goal: Progressing Goal #2: pt with no reports of pain with activity Goal to be met by: 07/10/18 Goal #3: pt independent with HEP to maintain gains after dc Goal to be met by: 07/10/18 Plan PLAN OF CARE EXPIRES ON:: 07/10/18 ORDER # VISITS AND/OR THROUGH DATE: 07/10/18 PLAN: Discharge
== END 2018-07-12 23:59 ==
PROVIDERS: ATTEND Internal Medicine
DX: M54.42 Lumbago with sciatica, left side (principal); M46.1 Sacroiliitis, not elsewhere classified; M62.89 Other specified disorders of muscle; M62.81 Muscle weakness (generalized)

== ENCOUNTER 2018-07-16 16:47 | Emergency (ER) | payer OTHER ==
[2018-07-16 16:55] VITALS: BP 147/96; TEMP 98; BMI 42.0
--- NOTE | 2018-07-16 17:48 | CT ---
EXAM: CT of the abdomen pelvis without contrast History: Diarrhea and abdominal pain. Comparison: CT abdomen 09/01/2017 Technique: Multiplanar CT images through the abdomen pelvis were obtained without the administration of IV contrast Findings: Heart is enlarged. Subsegmental atelectasis seen within the lower lungs. No acute osseou s abnormalities. No discrete gallstones identified by CT. No focal liver or splenic lesions. No peripancreatic infla mmation. Adrenal glands are unremarkable. No renal stones and no hydronephrosis. The appendix is n ormal. No bowel obstruction. No bladder wall thickening. There is a small amount of fluid seen wit hin the pelvis. No perirectal inflammation. No free air. Mild colonic diverticulosis. Uterus is no t seen and likely has been surgically removed. Impression: 1. No acute intra-abdominal or pelvic process. 2. Mild colonic diverticulosis. 3. Small amount of fluid in the pelvis. 4. Cardiomegaly
--- NOTE | 2018-07-16 18:18 | ED.PDOC ---
General ED Provider: Dr. JONY CRESPO Chief Complaint: Diarrhea Stated Complaint: loose stools x 3 days , pt has had a heart transplant 2012 her transplant nurse advised her to come to ED Time Seen by Physician: 17:00 (PT WAS SEEN WITH EDU GARAY AT ALL TIMES, DENIED BLACK OR TARRY STOOLS ) Mode of Arrival: Walk-In Information Source: Patient Exam Limitations: No limitations Primary Care Provider: ALETHA CHIU Referred to ED by: Other (ANTIBIOTICS WITHIN PAST 90 DAYS . NO BLK OR BLOODY STOOLS) Nursing and Triage Documentation Reviewed and Agree: Yes Does patient meet sepsis criteria?: No System Inflammatory Response Syndrome: Not Applicable Sepsis Protocol: For patient's 13 years and over: Temp is 96.8 and below OR 101 and greater Pulse >90 BPM Resp >20/minute Acutely Altered Mental Status Are patient's symptoms suggestive of a new infection, such as: -Pneumonia -Skin, Soft Tissue -Endocarditis -UTI -Bone, Joint Infection -Implantable Device -Acute Abdominal Infection -Wound Infection -Meningitis -Blood Stream Catheter Infection -Unknown GI Complaint Exam - Vomiting/Diarrhea Complaint/Exam Onset/Duration: 3 DAYS Symptoms Are: Resolved Episodes of Diarrhea Over Last 24 Hours: 6 Initial Severity: Mild Current Severity: None Character of Diarrhea: Denies: Bloody, Watery, Mucoid, Malodorous Aggravating: Reports: None Alleviating: Reports: None Associated Signs and Symptoms: Denies: Dizziness, Light-headedness, Melena, Hematemesis, Fever, Abdominal pain, Cramping Non-GI Risk Factors: Reports: None Surgical Obstruction Risk Factors: Reports: None Related Surgical History: Reports: None Abdominal Findings: Present: None Differential Diagnoses: Viral Gastroenteritis Review of Systems - Review Of Systems Constitutional: Reports: No symptoms Eyes: Reports: No symptoms Ears, Nose, Mouth, Throat: Reports: No symptoms Respiratory: Reports: No symptoms Cardiac: Reports: No symptoms GI: Reports: Other (LOOSE STOOLS) : Reports: No symptoms Musculoskeletal: Reports: No symptoms Skin: Reports: No symptoms Neurological: Reports: No symptoms Endocrine: Reports: No symptoms Hematologic/Lymphatic: Reports: No symptoms All Other Systems: Reviewed and Negative Past Medical History - Past Medical History Previously Healthy: Yes Endocrine: Reports: None Cardiovascular: Reports: CHF (due to ), Other (heart transplant in 2012/endometriosis hysterectomy cancer) Respiratory: Reports: None Hematological: Reports: None Gastrointestinal: Reports: None Genitourinary: Reports: Other (endometriosis) Neuro/Psych: Reports: None Musculoskeletal: Reports: None Cancer: Reports: Unknown Last Menstrual Period: hysterectomy Other Pertinent Past Medical History: heart transplant in 2012/ endometriosishysterectomycancer - Surgical History General Surgical History: Reports: Hysterectomy, Other (Heart Transplant. ) - Family History Family History: Reports: None - Social History Smoking Status: Never smoker Hx Substance Use: No Alcohol Screening: None Physical Exam - Physical Exam Appearance: Well-appearing, No pain distress, Well-nourished Eyes: ANYI, EOMI, Conjunctiva clear ENT: Ears normal, Nose normal, Oropharynx normal Respiratory: Airway patent, Breath sounds clear, Breath sounds equal, Respirations nonlabored Cardiovascular: RRR, Pulses normal, No rub, No murmur GI/: Soft, Nontender, No masses, Bowel sounds normal, No Organomegaly Musculoskeletal: Normal strength, ROM intact, No edema, No calf tenderness Skin: Warm, Dry, Normal color Neurological: Sensation intact, Motor intact, Reflexes intact, Cranial nerves intact, Alert, Oriented Psychiatric: Affect appropriate, Mood appropriate Interpretation - Radiology Interpretation Radiology Interpretation By: Radiologist Radiology Results: No acute changes Critical Care Note - Critical Care Note Total Time (mins): 0 Course - Course Hematology/Chemistry: 07/16/18 17:19 07/16/18 17:19 Orders, Labs, Meds: Lab Review 07/16/18 07/16/18 07/16/18 17:19 17:19 17:19 WBC 5.93 RBC 4.14 L Hgb 11.9 L Hct 37.1 MCV 89.6 MCH 28.7 MCHC 32.1 RDW Coeff of Gabriela 13.7 Plt Count 118 L Immature Gran % (Auto) 0.3 Neut % (Auto) 67.6 Lymph % (Auto) 23.8 Dade % (Auto) 5.9 Eos % (Auto) 1.7 Baso % (Auto) 0.7 Immature Gran # (Auto) 0.0 Neut # (Auto) 4.0 Lymph # (Auto) 1.4 Dade # (Auto) 0.4 Eos # (Auto) 0.1 Baso # (Auto) 0.0 Sodium 139.8 Potassium 3.88 Chloride 101.2 Carbon Dioxide 31.2 H Anion Gap 11.28 BUN 21.5 H Creatinine 1.36 H Estimated GFR (MDRD) 50.00 BUN/Creatinine Ratio 15.80 Glucose 130.9 H Lactic Acid 0.97 Calcium 9.47 Total Bilirubin 0.73 AST 18.7 ALT 18.3 Alkaline Phosphatase 47.6 Total Protein 7.36 Albumin 4.49 Globulin 2.87 Albumin/Globulin Ratio 1.56 Amylase 83.7 Lipase 60.9 Procalcitonin 07/16/18 17:19 WBC RBC Hgb Hct MCV MCH MCHC RDW Coeff of Gabriela Plt Count Immature Gran % (Auto) Neut % (Auto) Lymph % (Auto) Dade % (Auto) Eos % (Auto) Baso % (Auto) Immature Gran # (Auto) Neut # (Auto) Lymph # (Auto) Dade # (Auto) Eos # (Auto) Baso # (Auto) Sodium Potassium Chloride Carbon Dioxide Anion Gap BUN Creatinine Estimated GFR (MDRD) BUN/Creatinine Ratio Glucose Lactic Acid Calcium Total Bilirubin AST ALT Alkaline Phosphatase Total Protein Albumin Globulin Albumin/Globulin Ratio Amylase Lipase Procalcitonin < 0.05 Orders Category Date Time Status AMYLASE Stat LAB 07/16/18 17:19 Completed BLOOD CULTURE Routine LAB 07/16/18 17:01 Received CBC W/ AUTO DIFF Stat LAB 07/16/18 17:19 Completed COMPREHENSIVE METABOLIC PANEL Stat LAB 07/16/18 17:19 Completed LACTIC ACID Stat LAB 07/16/18 17:19 Completed LIPASE Stat LAB 07/16/18 17:19 Completed PROCALCITONIN Stat LAB 07/16/18 17:[address] ABDOMEN/PELVIS WO CONTRAST Stat RADS 07/16/18 17:02 Completed Vital Signs: Temp Pulse Resp BP Pulse Ox 07/16/18 16:48 98 F 86 20 147/96 H 93 L Departure - Departure Time of Disposition: 18:19 Disposition: HOME SELF-CARE Discharge Problem: Diarrhea Instructions: Acute Diarrhea (ED) Condition: Good Pt referred to PMD for follow-up: Yes IPMP verified?: No Additional Instructions: Please call your Family Physician as soon as possible to schedule a follow-up appointment.IF YOU HAVE FEVER, DIARRHEA, OR BLACK OR BLOODY STOOLS THESE FINDING ARE SERIOUS AND MUST BE CHECK OUT. SINCE YOU HAVE STATED YOU HAVE HAD ANTIBIOTICS WITHIN PAST 90 DAYS OR SO YOU MUST HAVE HAVE STOOL TEST DONE FOR C - DIFF PER OUR DISCUSSION. Allergies/Adverse Reactions: Allergies No Known Allergies Allergy (Verified 07/16/18 16:56) Home Medications: Ambulatory Orders Aspirin [Aspirin Chewable] 81 mg PO DAILY 03/25/13 Gabapentin 100 mg PO BID 03/25/13 Multivitamin [Multi Vitamin Daily] 1 each PO DAILY 03/25/13 Tacrolimus [Prograf] 6 mg PO BID 03/25/13 Calcium Carb & Citrate/Vit D3 [Calcium + Vitamin D3 Caplet] 1 each PO BID Nitrofurantoin Macrocrystal [Nitrofurantoin] 100 mg PO BEDTIME 10/10/14 Azathioprine 25 mg PO BEDTIME 05/12/16 Duloxetine HCl [Cymbalta] 60 mg PO DAILY 05/12/16 Pravastatin Sodium [Pravachol] 40 mg PO BEDTIME 05/12/16 Ferrous Sulfate 325 mg PO BID 08/31/17 Sulfamethoxazole/Trimethoprim [Bactrim 400-80 mg Tablet] 1 each PO MOWEFR Losartan Potassium [Cozaar] 50 mg PO BID #30 tablet 09/02/17 Prednisone 10 mg PO BIDWM #10 tablet 09/02/17 Disposition Discussed With: Patient
== END 2018-07-16 18:28 | disposition home or self-care (01) ==
LOC: ED 16:47
DX: R19.7 Diarrhea, unspecified (principal); Z94.1 Heart transplant status; Z79.899 Other long term (current) drug therapy
CPT/HCPCS: 36415; 80053; 82150; 83605; 83690; 84145; 85025; 87040; 99283

== ENCOUNTER 2018-08-05 10:16 | Outpatient (CLI) | payer OTHER ==
[2013-03-25 15:49] VITALS: TEMP 98.6
== END 2018-08-05 10:17 | disposition home or self-care (01) ==
LOC: LAB 10:16
PROVIDERS: ATTEND Internal Medicine
DX: Z94.1 Heart transplant status (principal); Z48.298 Encounter for aftercare following other organ transplant; Z79.899 Other long term (current) drug therapy; E55.9 Vitamin D deficiency, unspecified; N18.9 Chronic kidney disease, unspecified
CPT/HCPCS: 36415; 80053; 80061; 80197; 82306; 82550; 83036; 85025

== ENCOUNTER 2018-08-10 15:23 | Outpatient (CLI) | payer OTHER ==
[2013-03-25 15:49] VITALS: TEMP 98.6
== END 2018-08-10 15:24 | disposition home or self-care (01) ==
LOC: LAB 15:23
PROVIDERS: ATTEND Internal Medicine
DX: Z94.1 Heart transplant status (principal); Z79.899 Other long term (current) drug therapy; Z48.298 Encounter for aftercare following other organ transplant; N28.9 Disorder of kidney and ureter, unspecified; E55.9 Vitamin D deficiency, unspecified
CPT/HCPCS: 81001; 87086

== ENCOUNTER 2018-11-13 09:38 | Outpatient (CLI) | payer OTHER ==
[2013-03-25 15:49] VITALS: TEMP 98.6
== END 2018-11-13 09:39 | disposition home or self-care (01) ==
LOC: LAB 09:38
PROVIDERS: ATTEND Internal Medicine
DX: Z94.1 Heart transplant status (principal); Z48.21 Encounter for aftercare following heart transplant; Z79.899 Other long term (current) drug therapy; N28.9 Disorder of kidney and ureter, unspecified
CPT/HCPCS: 36415; 80048; 80197; 85025

== ENCOUNTER 2019-02-09 10:25 | Outpatient (CLI) ==
[2013-03-25 15:49] VITALS: TEMP 98.6
== END 2019-02-09 10:26 | disposition home or self-care (01) ==
LOC: LAB 10:25
PROVIDERS: ATTEND Internal Medicine
DX: Z94.1 Heart transplant status (principal); Z48.21 Encounter for aftercare following heart transplant; Z79.899 Other long term (current) drug therapy; N28.9 Disorder of kidney and ureter, unspecified
CPT/HCPCS: 36415; 80048; 80197; 85025

== ENCOUNTER 2019-05-31 13:40 | Emergency (ER) ==
[2019-05-31 13:45] VITALS: BP 149/100; TEMP 97.3; BMI 40.4
--- NOTE | 2019-05-31 15:04 | CT ---
EXAM: CT chest without contrast HISTORY: Cough COMPARISON: 08/31/2017 TECHNIQUE: CT chest performed without intravenous contrast. Coronal and sagittal reformatted images obtained. FINDINGS: Right paratracheal air cyst, present since 2017. Heart moderately enlarged. No pericardi al effusion. Aorta normal in caliber. Mild atherosclerosis. Evaluation for lymphadenopathy limited without contrast. No lymphadenopathy identified. Visualized portion upper abdomen demonstrates no acute abnormality. No acute abnormalities of the bones. Degenerative change in the spine. Median s ternotomy wires. Central airway patent. Elevation left hemidiaphragm with left basilar atelectasis/ scarring and/or consolidation. New 5 mm ground-glass nodule right lung image 21. Trace left pleural effusion. No pneumothorax IMPRESSION: 1. Elevation left hemidiaphragm. Adjacent left basilar atelectasis/scarring and/or pneumonia. Atel ectasis/scarring is favored. 2. Trace left pleural effusion. 3. Cardiomegaly. 4. New 5 mm ground-glass nodule right lung. Recommend CT chest follow-up in 6 months.
--- NOTE | 2019-05-31 15:15 | ED.PDOC ---
General ED Provider: Dr. JONY CRESPO Chief Complaint: Respiratory Complaint Stated Complaint: COUGH CONGESTION SHORT OF AIR SUBJECTIVE Time Seen by Physician: 13:50 (SEEN WITH TRAM AT ALL TIMES ) Mode of Arrival: Wheelchair Information Source: Patient Exam Limitations: No limitations Primary Care Provider: ALETHA CHIU Nursing and Triage Documentation Reviewed and Agree: Yes Does patient meet sepsis criteria?: No System Inflammatory Response Syndrome: Not Applicable Sepsis Protocol: For patient's 13 years and over: Temp is 96.8 and below OR 101 and greater Pulse >90 BPM Resp >20/minute Acutely Altered Mental Status Are patient's symptoms suggestive of a new infection, such as: -Pneumonia -Skin, Soft Tissue -Endocarditis -UTI -Bone, Joint Infection -Implantable Device -Acute Abdominal Infection -Wound Infection -Meningitis -Blood Stream Catheter Infection -Unknown Respiratory Complaint Exam - Shortness of Air Complaint/Exam Symptoms Are: Resolved Initial Severity: Mild Current Severity: None Character: Reports: Dyspnea at rest Aggravating: Reports: None Alleviating: Reports: Spontaneous resolution Associated Signs and Symptoms: Reports: Cough, Nasal congestion. Denies: Wheezing, Chest pain with cough, Chest pain, Fever, Chills, Diaphoresis, Dizziness, Calf pain, Calf swelling, Edema, Rapid breathing, Labored breathing, Decreased intake History of Healthcare-Acquired Pneumonia: No Pulmonary Embolism Risk Factors: Reports: None Cardiac Risk Factors: Reports: Hypertension, CHF Pseudomonas Risk Factors: Reports: None Tuberculosis Risk Factors: Reports: None Home Oxygen Use: No Recent Stress Test: No Recent Echo/LV Function: No Respiratory Distress: None Stridor Present: No Tracheal Deviation: No Subcutaneous Emphysema: No Accessory Muscle Use: No Retractions: Not Present Diminished Breath Sounds: No Prolonged Expiratory Phase: No Unable to Speak Full Sentences: No Fatigue: No Leg Swelling: No Grunting Respirations: No Kussmaul Respirations: No Differential Diagnoses: CHF, Pulmonary Edema, Pneumonia, Bronchitis, URI Review of Systems - Review Of Systems Constitutional: Reports: No symptoms Eyes: Reports: No symptoms Ears, Nose, Mouth, Throat: Reports: No symptoms Respiratory: Reports: Cough Cardiac: Reports: No symptoms GI: Reports: No symptoms : Reports: No symptoms Musculoskeletal: Reports: No symptoms Skin: Reports: No symptoms Neurological: Reports: No symptoms Endocrine: Reports: No symptoms Hematologic/Lymphatic: Reports: No symptoms All Other Systems: Reviewed and Negative Past Medical History - Past Medical History Previously Healthy: Yes Endocrine: Reports: None Cardiovascular: Reports: CHF (due to ), Other (heart transplant in 2012/endometriosis hysterectomy cancer) Respiratory: Reports: None Hematological: Reports: None Gastrointestinal: Reports: None Genitourinary: Reports: Other (endometriosis) Neuro/Psych: Reports: None Musculoskeletal: Reports: None Cancer: Reports: Unknown Last Menstrual Period: n/a Other Pertinent Past Medical History: heart transplant in 2012/ endometriosishysterectomycancer - Surgical History General Surgical History: Reports: Hysterectomy, Other (Heart Transplant. ) - Family History Family History: Reports: None - Social History Smoking Status: Never smoker Hx Substance Use: No Alcohol Screening: None Physical Exam - Physical Exam Appearance: Well-appearing, No pain distress, Well-nourished Eyes: ANYI, EOMI, Conjunctiva clear ENT: Ears normal, Nose normal, Oropharynx normal Respiratory: Airway patent, Breath sounds clear, Breath sounds equal, Respirations nonlabored Cardiovascular: RRR, Pulses normal, No rub, No murmur GI/: Soft, Nontender, No masses, Bowel sounds normal, No Organomegaly Musculoskeletal: Normal strength, ROM intact, No edema, No calf tenderness Skin: Warm, Dry, Normal color Neurological: Sensation intact, Motor intact, Reflexes intact, Cranial nerves intact, Alert, Oriented Psychiatric: Affect appropriate, Mood appropriate Interpretation - Radiology Interpretation Radiology Interpretation By: Radiologist Radiology Results: No acute changes Critical Care Note - Critical Care Note Total Time (mins): 0 Course - Course Hematology/Chemistry: 05/31/19 14:17 05/31/19 14:17 Orders, Labs, Meds: Lab Review 05/31/19 05/31/19 14:17 14:17 WBC 6.35 RBC 3.76 L Hgb 10.8 L Hct 35.0 L MCV 93.1 MCH 28.7 MCHC 30.9 L RDW Coeff of Gabriela 13.7 Plt Count 120 L Immature Gran % (Auto) 0.2 Neut % (Auto) 82.3 Lymph % (Auto) 12.0 [place] % (Auto) 4.3 Eos % (Auto) 0.9 Baso % (Auto) 0.3 Immature Gran # (Auto) 0.0 Neut # (Auto) 5.2 Lymph # (Auto) 0.8 [place] # (Auto) 0.3 L Eos # (Auto) 0.1 Baso # (Auto) 0.0 Sodium 140.2 Potassium 4.47 Chloride 102.1 Carbon Dioxide 31.0 H Anion Gap 11.57 BUN 27.3 H Creatinine 1.16 Estimated GFR (MDRD) 59.00 BUN/Creatinine Ratio 23.53 Glucose 119.5 H Calcium 8.68 Total Bilirubin 0.58 AST 20.7 ALT 22.2 Alkaline Phosphatase 53.5 Total Creatine Kinase 40.8 Troponin I < 0.012 Total Protein 7.25 Albumin 4.46 Globulin 2.79 Albumin/Globulin Ratio 1.59 Orders Category Date Time Status EKG-(ED ONLY) Stat CARDIO 05/31/19 14:07 Completed CBC W/ AUTO DIFF Stat LAB 05/31/19 14:17 Completed COMPREHENSIVE METABOLIC PANEL Stat LAB 05/31/19 14:17 Received CREATINE KINASE Stat LAB 05/31/19 14:17 Received TROPONIN I Stat LAB 05/31/19 14:[address] CHEST W/O CONTRAST Stat RADS 05/31/19 14:10 Ordered Vital Signs: Temp Pulse Resp BP Pulse Ox 05/31/19 13:42 97.3 F L 75 20 149/100 H 98 Departure - Departure Time of Disposition: 16:00 Disposition: HOME SELF-CARE Discharge Problem: Cough, Pulmonary nodule Instructions: Chronic Cough (ED), Dyspnea (ED), Pulmonary Nodules (ED) Condition: Good Pt referred to PMD for follow-up: Yes IPMP verified?: No Additional Instructions: Please call your Family Physician as soon as possible to schedule a follow-up appointment. YOU HAVE A SPOT ON YOUR LUNG. THESE SPOTS AT TIMES MAY BECOME CANER. MAKE SURE YOU HAVE YOUR DOCTOR CT THIS AT 3 MONTHS, 6 MONTHS AND 1 YEAR TIME Allergies/Adverse Reactions: Allergies No Known Allergies Allergy (Uncoded 05/31/19 13:45) Home Medications: Ambulatory Orders Aspirin [Aspirin Chewable] 81 mg PO DAILY 03/25/13 Gabapentin 100 mg PO BID 03/25/13 Multivitamin [Multi Vitamin Daily] 1 each PO DAILY 03/25/13 Tacrolimus [Prograf] 6 mg PO BID 03/25/13 Nitrofurantoin Macrocrystal [Nitrofurantoin] 100 mg PO BEDTIME 10/10/14 Azathioprine 25 mg PO BEDTIME 05/12/16 Duloxetine HCl [Cymbalta] 60 mg PO DAILY 07/31/16 Pravastatin Sodium [Pravachol] 40 mg PO BEDTIME 05/12/16 Ferrous Sulfate 325 mg PO BID 08/31/17 Sulfamethoxazole/Trimethoprim [Bactrim 400-80 mg Tablet] 1 each PO MOWEFR Losartan Potassium [Cozaar] 50 mg PO BID #30 tablet 09/02/17 Mirabegron [Myrbetriq] 25 mg PO DAILY 05/31/19 Prednisone 5 mg PO DAILY 05/31/19
== END 2019-05-31 15:22 | disposition home or self-care (01) ==
LOC: ED 13:40
DX: R05 Cough (principal); R91.1 Solitary pulmonary nodule; R06.02 Shortness of breath; I10 Essential (primary) hypertension; Z94.1 Heart transplant status; Z79.899 Other long term (current) drug therapy; F33.1 Major depressive disorder, recurrent, moderate; F41.9 Anxiety disorder, unspecified
CPT/HCPCS: 36415; 80053; 82550; 84484; 85025; 90853; 93005; 93010; 99283

== ENCOUNTER 2019-06-04 06:41 | Emergency (ER) | payer OTHER ==
[2019-06-04 06:44] VITALS: BP 154/97; TEMP 97.4; BMI 40.2
--- NOTE | 2019-06-04 07:53 | ED.PDOC ---
General ED Provider: Dr. CANDIE HYATT Chief Complaint: Extremity Pain/Injury Stated Complaint: Left leg pain started after drive to and return from [facility] yesterday. Pain is not the same as her usual neurologic pain in the left leg from dating from the time of her CABG/venous harvesting in the past. Pain is circular around thigh, knee and calf. Elevated last night - has not helped. Nothing makes it worse except walking is more uncomfortable than when at rest. Time Seen by Physician: 07:10 Mode of Arrival: Walk-In Information Source: Patient Exam Limitations: No limitations Primary Care Provider: ALETHA CHIU Nursing and Triage Documentation Reviewed and Agree: Yes Does patient meet sepsis criteria?: No System Inflammatory Response Syndrome: Not Applicable Sepsis Protocol: For patient's 13 years and over: Temp is 96.8 and below OR 101 and greater Pulse >90 BPM Resp >20/minute Acutely Altered Mental Status Are patient's symptoms suggestive of a new infection, such as: -Pneumonia -Skin, Soft Tissue -Endocarditis -UTI -Bone, Joint Infection -Implantable Device -Acute Abdominal Infection -Wound Infection -Meningitis -Blood Stream Catheter Infection -Unknown Review of Systems - Review Of Systems Constitutional: Reports: No symptoms Respiratory: Reports: No symptoms Cardiac: Reports: No symptoms Musculoskeletal: Reports: Muscle pain (Left leg ) Skin: Reports: No symptoms Neurological: Reports: No symptoms All Other Systems: Reviewed and Negative Past Medical History - Past Medical History Previously Healthy: Yes Endocrine: Reports: None Cardiovascular: Reports: CHF (due to ), Other (heart transplant in 2012/endometriosis hysterectomy cancer) Respiratory: Reports: None Hematological: Reports: None Gastrointestinal: Reports: None Genitourinary: Reports: Other (endometriosis) Neuro/Psych: Reports: None Musculoskeletal: Reports: None Cancer: Reports: Unknown Last Menstrual Period: none Other Pertinent Past Medical History: heart transplant in 2012/ endometriosishysterectomycancer - Surgical History General Surgical History: Reports: Hysterectomy, Other (Heart Transplant. ) - Family History Family History: Reports: None - Social History Smoking Status: Never smoker Hx Substance Use: No Alcohol Screening: None - Immunizations Tetanus Shot up to Date: Yes Physical Exam - Physical Exam Appearance: Well-appearing Pain Distress: Mild (Sitting on exam bed with left leg extended on bed; moves without difficulty to seated position on bed for exam of left knee) Respiratory: Airway patent, Breath sounds clear, Respirations nonlabored Cardiovascular: RRR, Pulses normal Musculoskeletal: ROM intact, No edema, No calf tenderness (Negative Hohmans Left ) Skin: Warm, Dry, Normal color Neurological: Sensation intact, Motor intact, Alert, Oriented Psychiatric: Affect appropriate, Mood appropriate Interpretation - Radiology Interpretation Radiology Interpretation By: Radiologist Radiology Results: No acute changes (Incidental finding: Uriarte's Cyst) Exam Interpreted: Other (Venous Doppler L LE - ) Critical Care Note - Critical Care Note Total Time (mins): 15 Course - Course Hematology/Chemistry: 06/04/19 07:30 06/04/19 07:30 Orders, Labs, Meds: Lab Review 06/04/19 06/04/19 06/04/19 07:30 07:30 07:30 WBC 6.17 RBC 4.12 L Hgb 12.0 Hct 37.7 MCV 91.5 MCH 29.1 MCHC 31.8 RDW Coeff of Gabriela 14.0 Plt Count 120 L Immature Gran % (Auto) 0.3 Neut % (Auto) 73.9 Lymph % (Auto) 18.8 [place] % (Auto) 6.2 Eos % (Auto) 0.3 Baso % (Auto) 0.5 Immature Gran # (Auto) 0.0 Neut # (Auto) 4.6 Lymph # (Auto) 1.2 [place] # (Auto) 0.4 Eos # (Auto) 0.0 Baso # (Auto) 0.0 D-Dimer (Manual) 309.25 Sodium 138.9 Potassium 4.53 Chloride 100.4 Carbon Dioxide 32.2 H Anion Gap 10.83 BUN 27.4 H Creatinine 1.29 Estimated GFR (MDRD) 53.00 BUN/Creatinine Ratio 21.24 Glucose 97.6 Calcium 9.69 Total Bilirubin 0.64 AST 15.8 ALT 20.3 Alkaline Phosphatase 55.1 Total Protein 7.61 Albumin 4.69 Globulin 2.92 Albumin/Globulin Ratio 1.60 Orders Category Date Time Status CBC W/ AUTO DIFF Stat LAB 06/04/19 07:30 Completed COMPREHENSIVE METABOLIC PANEL Stat LAB 06/04/19 07:30 Completed D-DIMER Stat LAB 06/04/19 07:30 Completed ULTRASOUND VENOUS SCAN LT. LEG [U/S VENOUS SCAN LT LEG] RADS 06/04/19 07:29 Completed Stat Vital Signs: Temp Pulse Resp BP Pulse Ox 06/04/19 06:41 97.4 F L 74 20 154/97 H 93 L Departure - Departure Time of Disposition: 08:55 Disposition: HOME SELF-CARE Discharge Problem: Leg pain, diffuse Qualifiers: Laterality: left Qualified Code(s): M79.605 - Pain in left leg Instructions: Leg Pain (ED) Condition: Good Pt referred to PMD for follow-up: Yes (Call for appointment) IPMP verified?: No (N/A) Additional Instructions: Per discussion with Dr. Chiu's office this AM - they ask you call to make appointment for follow up for next week. Continue current medications meanwhile. Continue to elevate and rest L leg when able next 24 hours. Allergies/Adverse Reactions: Allergies No Known Allergies Allergy (Uncoded 06/04/19 06:44) Home Medications: Ambulatory Orders Aspirin [Aspirin Chewable] 81 mg PO DAILY 03/25/13 Gabapentin 100 mg PO BID 03/25/13 Multivitamin [Multi Vitamin Daily] 1 each PO DAILY 03/25/13 Tacrolimus [Prograf] 6 mg PO BID 03/25/13 Nitrofurantoin Macrocrystal [Nitrofurantoin] 100 mg PO BEDTIME 10/10/14 Azathioprine 25 mg PO BEDTIME 05/12/16 Duloxetine HCl [Cymbalta] 60 mg PO DAILY 05/12/16 Pravastatin Sodium [Pravachol] 40 mg PO BEDTIME 05/12/16 Ferrous Sulfate 325 mg PO BID 08/31/17 Sulfamethoxazole/Trimethoprim [Bactrim 400-80 mg Tablet] 1 each PO MOWEFR Losartan Potassium [Cozaar] 50 mg PO BID #30 tablet 09/02/17 Mirabegron [Myrbetriq] 25 mg PO DAILY 05/31/19 Prednisone 5 mg PO DAILY 05/31/19
--- NOTE | 2019-06-04 08:13 | US ---
EXAM: ULTRASOUND LOWER EXTREMITY VENOUS DOPPLER EXAM HISTORY: Left lower extremity pain. FINDINGS: Left lower extremity venous Doppler exam. Real time villegas-scale, Doppler spectral analysis and color-flow Doppler imaging performed. The veins targeted for evaluation include the common femo ral, greater saphenous, profundus, femoral, popliteal, peroneal, anterior tibial and posterior tibial . The evaluated veins demonstrated normal spontaneous flow and compression without evidence of thr ombosis. Incidental note of a 3.0 x 0.9 x 2.5 cm fluid collection in the popliteal fossa most consis tent with a Uriarte's cyst. IMPRESSION: No venous thrombosis identified within the areas evaluated. Uriarte's cyst incidentally noted.
== END 2019-06-04 09:22 | disposition home or self-care (01) ==
LOC: ED 06:41
DX: M79.605 Pain in left leg (principal); Z95.1 Presence of aortocoronary bypass graft; Z94.1 Heart transplant status; Z79.899 Other long term (current) drug therapy; F33.1 Major depressive disorder, recurrent, moderate; F41.9 Anxiety disorder, unspecified
CPT/HCPCS: 36415; 80053; 85025; 85379; 90853; 99213; 99283

== ENCOUNTER 2019-06-07 10:00 | Outpatient (RCR) | payer OTHER ==
[2013-03-25 15:49] VITALS: TEMP 98.6
== END 2019-06-12 23:59 ==
LOC: NEWBEG 10:00
PROVIDERS: ATTEND Psychiatry & Neurology Psychiatry
DX: F33.1 Major depressive disorder, recurrent, moderate (principal); F41.9 Anxiety disorder, unspecified
CPT/HCPCS: 90792; 90853; 99213

== ENCOUNTER 2020-03-13 11:41 | Inpatient (IN) ==
[2020-03-13] MEDS ORDERED: CATAPRES PO STA (11:55)
[2020-03-13] MEDS ORDERED: TYLENOL PO STA (11:55)
--- NOTE | 2020-03-13 12:02 | ED.PDOC ---
General ED Provider: Dr. DESIRE ARAUJO MD Chief Complaint: Cough Stated Complaint: mild to mod off and on short of breath and cough since Friday, use cpap oxygen at night, hx heart transplant previously, diffuse aches, no fever Time Seen by Physician: 12:00 Mode of Arrival: Walk-In Information Source: Patient Primary Care Provider: ALETHA CHIU Nursing and Triage Documentation Reviewed and Agree: Yes Does patient meet sepsis criteria?: No System Inflammatory Response Syndrome: Not Applicable Sepsis Protocol: For patient's 13 years and over: Temp is 96.8 and below OR 101 and greater Pulse >90 BPM Resp >20/minute Acutely Altered Mental Status Are patient's symptoms suggestive of a new infection, such as: -Pneumonia -Skin, Soft Tissue -Endocarditis -UTI -Bone, Joint Infection -Implantable Device -Acute Abdominal Infection -Wound Infection -Meningitis -Blood Stream Catheter Infection -Unknown Respiratory Complaint Exam Shortness of Air Complaint/Exam Onset/Duration: since Friday Symptoms Are: Still present Timing: Intermittent Initial Severity: Mild Current Severity: Mild Character: Reports Dyspnea at rest and Dyspnea on exertion Aggravating: Reports Deep breaths Alleviating: Reports None Associated Signs and Symptoms: Reports Cough; Denies Chest pain, Fever, Nasal congestion and Dizziness Related History: Reports Similar episode Review of Systems Review Of Systems Constitutional: Reports Malaise; Denies Fever Eyes: Denies Vision change Ears, Nose, Mouth, Throat: Denies Throat pain Respiratory: Reports Cough and Short of air Cardiac: Denies Chest pain GI: Denies Abdominal pain : Denies Dysuria Musculoskeletal: Denies Back pain and Neck pain Skin: Denies Rash and Cyanosis Neurological: Denies Cognitive dysfunction All Other Systems: Other [facility] Medical History Heart failure Family History (Updated 03/13/20 @ 14:51 by ZEINAB AMBROCIO, RN) Mother Cancer, Onset Age: 40 FATHER Diabetes Social History Smoking and tobacco status: Never smoker Substance use type: does not use Female Reproductive History Menstrual Hx Hysterectomy: Yes Hx Tubal Ligation: No Physical Exam Physical Exam Appearance: Reports Well-appearing Ill-appearing: None Pain Distress: None Eyes: Reports ANYI, EOMI and Conjunctiva clear ENT: Reports Oropharynx normal Neck: Supple Respiratory: Reports Airway patent; Denies Wheezes Cardiovascular: Reports RRR GI/: Reports Soft and Nontender Musculoskeletal: Reports ROM intact Skin: Reports Warm and Dry Neurological: Reports Cranial nerves intact, Alert and Oriented Psychiatric: Reports Affect appropriate Interpretation Radiology Interpretation Radiology Interpretation By: Radiologist Radiology Results: No acute changes Exam Interpreted: Portable CXR EKG Interpretation Time of EKG #1: 13:24 Rate: Normal Rhythm: Sinus Ectopy: None Interpretation: no stemi Re-Evaluation Re-Evaluation Time of Re-Evaluation: 13:25 Status: Improved Vital Signs Stable: Yes Appearance: NAD Lungs: Clear Skin: Warm and Dry Neuro: Alert and Oriented X3 CV: RRR Additional Comments: admit d/w Dr Chiu, pt to continue home meds Critical Care Note Critical Care Note Total Time (mins): 0 Course Course Hematology/Chemistry: 03/13/20 12:15 03/13/20 12:15 Orders, Labs, Meds: Lab Review 03/13/20 03/13/20 03/13/20 12:15 12:15 12:15 WBC 4.68 RBC 4.05 L Hgb 11.6 L Hct 37.2 MCV 91.9 MCH 28.6 MCHC 31.2 L RDW Coeff of Gabriela 14.2 Plt Count 108 L Immature Gran % (Auto) 0.2 Neut % (Auto) 75.9 H Lymph % (Auto) 16.5 [place] % (Auto) 5.3 Eos % (Auto) 1.7 Baso % (Auto) 0.4 Neut # (Auto) 3.6 Lymph # (Auto) 0.8 [place] # (Auto) 0.3 L Eos # (Auto) 0.1 Baso # (Auto) 0.0 Immature Gran # (Auto) 0.0 Puncture Site O2 Saturation ABG pH ABG pCO2 ABG pO2 ABG HCO3 ABG Total CO2 ABG Base Excess Jaylon Test FiO2 % Sodium 137.7 Potassium 4.87 Chloride 97.3 L Carbon Dioxide 35.7 H Anion Gap 9.57 BUN 21.1 H Creatinine 1.09 Estimated GFR (MDRD) 64.00 BUN/Creatinine Ratio 19.35 Glucose 115.7 H Lactic Acid 1.01 Calcium 9.71 Total Bilirubin 0.65 AST 22.9 ALT 18.5 Alkaline Phosphatase 62.8 Troponin I < 0.012 NT-Pro-B Natriuret Pep 354.000 H Total Protein 7.48 Albumin 4.47 Globulin 3.01 Albumin/Globulin Ratio 1.48 SARS-CoV-2 RNA (RT-PCR) 03/13/20 03/13/20 12:20 12:30 WBC RBC Hgb Hct MCV MCH MCHC RDW Coeff of Gabriela Plt Count Immature Gran % (Auto) Neut % (Auto) Lymph % (Auto) [place] % (Auto) Eos % (Auto) Baso % (Auto) Neut # (Auto) Lymph # (Auto) [place] # (Auto) Eos # (Auto) Baso # (Auto) Immature Gran # (Auto) Puncture Site R rad O2 Saturation 95.0 ABG pH 7.399 ABG pCO2 48.9 H ABG pO2 76.0 L ABG HCO3 30.2 H ABG Total CO2 32 H ABG Base Excess 5 H Jaylon Test + FiO2 % 21.0 Sodium Potassium Chloride Carbon Dioxide Anion Gap BUN Creatinine Estimated GFR (MDRD) BUN/Creatinine Ratio Glucose Lactic Acid Calcium Total Bilirubin AST ALT Alkaline Phosphatase Troponin I NT-Pro-B Natriuret Pep Total Protein Albumin Globulin Albumin/Globulin Ratio SARS-CoV-2 RNA (RT-PCR) Orders Category Date Time Status ABG DRAW REQUEST Stat CARDIO 03/13/20 11:56 Completed EKG-(ED ONLY) Stat CARDIO 03/13/20 11:55 Completed EKG-(IP & OP ONLY) DAILY CARDIO 03/14/20 06:00 Ordered EKG-(IP & OP ONLY) DAILY CARDIO 03/15/20 06:00 Ordered OXYGEN Routine CARDIO 03/13/20 13:27 Active ACTIVITY .BR with BRP CARE 03/13/20 13:27 Active INSERT SALINE LOCK ONCE CARE 03/13/20 13:27 Active TELEMETRY MONITORING TELE CARE 03/13/20 13:27 Active VITAL SIGNS Q4HR CARE 03/13/20 13:28 Active CARDIAC DIET DIETARY 03/13/20 Dinner Ordered ED APPLY O2 .ONCE EMERGENCY 03/13/20 11:55 Active ABG Stat LAB 03/13/20 12:30 Completed CBC W/ AUTO DIFF Stat LAB 03/13/20 12:15 Completed COMPREHENSIVE METABOLIC PANEL Stat LAB 03/13/20 12:15 Completed COVID19, PCR IDPH Stat LAB 03/13/20 12:20 Completed CREATINE KINASE Q8H LAB 03/13/20 19:25 Ordered LACTIC ACID Stat LAB 03/13/20 12:15 Completed NT-PROBNP Stat LAB 03/13/20 12:15 Completed TROPONIN I Q8H LAB 03/13/20 19:25 Ordered TROPONIN I Stat LAB 03/13/20 12:15 Completed URINALYSIS C & S IF INDICATED Stat LAB 03/13/20 14:57 Completed 0.9 % Sodium Chloride [Saline Flush] MEDS 03/13/20 21:00 Active 1 syr IVF Q8HR Acetaminophen [Tylenol] MEDS 03/13/20 11:55 Discontinued 650 mg PO ONCE STA Acetaminophen [Tylenol] MEDS 03/13/20 13:27 Active 650 mg PO Q4H PRN Albuterol Inhaler(with Spacer) [Ventolin Hfa (Per Puff- MEDS 03/13/20 13:20 Active with Spacer)] 2 puff IH Q6H PRN Aspirin [Aspirin Chewable] MEDS 03/14/20 08:30 Active 81 mg PO DAILYWM Atropine Sulfate Inj [Atropine Sulfate Pfs] MEDS 03/13/20 13:27 Active 0.5 mg IVP ONCE PRN Carvedilol [Coreg] MEDS 03/13/20 17:00 Active 6.25 mg PO BIDWM Clonidine HCl [Catapres] MEDS 03/13/20 11:55 Discontinued 0.1 mg PO ONCE STA Codeine/Promethazine Syrup [Phenergan with Codeine 6.25 MEDS 03/13/20 13:20 Active /10 mg/5 ml] 5 - 10 ml PO Q8H PRN Duloxetine HCl [Cymbalta] MEDS 03/14/20 09:00 Active 60 mg PO DAILY Enalaprilat Dihydrate [Vasotec IV] MEDS 03/13/20 13:23 Discontinued 1.25 mg IVP ONCE STA Ferrous Sulfate MEDS 03/13/20 21:00 Active 324 mg PO BID Gabapentin [Neurontin] MEDS 03/13/20 21:00 Active 300 mg PO BID Hydroxyzine HCl [Vistaril Inj] MEDS 03/13/20 13:27 Active 25 mg IM Q4H PRN Losartan Potassium [Cozaar] MEDS 03/13/20 21:00 Active 50 mg PO BID Mirabegron [Myrbetriq] MEDS 03/14/20 09:00 Active 25 mg PO DAILY Multivitamin [Multivitamin Tablet] MEDS 03/14/20 09:00 Active 1 tab PO DAILY Nitroglycerin [Nitrostat] MEDS 03/13/20 13:27 Active 0.4 mg SL Q5MIN X 3 DOSES PRN Pravastatin Sodium [Pravachol] MEDS 03/13/20 21:00 Active 40 mg PO BID Prednisone MEDS 03/14/20 08:30 Active 5 mg PO DAILYWM tacrolimus [Prograf] MEDS 03/13/20 21:00 Active 6 mg PO BID CHEST, 1V AP ONLY Stat RADS 03/13/20 11:55 Completed CHEST, 1V AP ONLY Stat RADS 03/14/20 13:27 Ordered Medications Generic Name Dose Route Start Last Admin Trade Name Freq PRN Reason Stop Dose Admin Acetaminophen 650 mg 03/13/20 13:27 Tylenol PO Q4H PRN Headache Albuterol Sulfate 2 puff 03/13/20 13:20 Ventolin Hfa (Per Puff-With Spacer) IH Q6H PRN Cough Aspirin 81 mg 03/14/20 08:30 Aspirin Chewable PO DAILYWM CHRISTO Atropine Sulfate 0.5 mg 03/13/20 13:27 Atropine Sulfate Pfs IVP ONCE PRN Symptomatic Bradycardia Carvedilol 6.25 mg 03/13/20 17:00 03/13/20 17:21 Coreg PO 6.25 mg BIDWM [facility] Administration Duloxetine HCl 60 mg 03/14/20 09:00 Cymbalta PO DAILY [facility] Ferrous Sulfate 324 mg 03/13/20 21:00 Ferrous Sulfate PO BID [facility] Gabapentin 300 mg 03/13/20 21:00 Neurontin PO BID [facility] Hydroxyzine HCl 25 mg 03/13/20 13:27 Vistaril Inj IM Q4H PRN Nausea/Vomiting/Restlessness Losartan Potassium 50 mg 03/13/20 21:00 Cozaar PO BID [facility] Mirabegron 25 mg 03/14/20 09:00 Myrbetriq PO DAILY [facility] Multivitamins 1 tab 03/14/20 09:00 Multivitamin Tablet PO DAILY [facility] Nitroglycerin 0.4 mg 03/13/20 13:27 Nitrostat SL Q5MIN X 3 DOSES PRN Chest Pain Non-Formulary Medication 6 mg 03/13/20 21:00 Tacrolimus [Prograf] PO BID [facility] Pravastatin Sodium 40 mg 03/13/20 21:00 Pravachol PO BID [facility] Prednisone 5 mg 03/14/20 08:30 Prednisone PO DAILYWM [facility] Promethazine HCl/Codeine 5 - 10 ml 03/13/20 13:20 Phenergan With Codeine 6.25/10 Mg/5 Ml PO Q8H PRN Nausea / Vomiting Sodium Chloride 1 syr 03/13/20 21:00 Saline Flush IVF Q8HR [facility]O Discontinued Medications Generic Name Dose Route Start Last Admin Trade Name Freq PRN Reason Stop Dose Admin Acetaminophen 650 mg 03/13/20 11:55 03/13/20 12:22 Tylenol PO 03/13/20 11:56 650 mg ONCE STA Administration Clonidine 0.1 mg 03/13/20 11:55 03/13/20 12:22 Catapres PO 03/13/20 11:56 0.1 mg ONCE STA Administration Enalaprilat 1.25 mg 03/13/20 13:23 03/13/20 13:38 Vasotec Iv IVP 03/13/20 13:24 1.25 mg ONCE STA Administration Vital Signs: Temp Pulse Resp BP Pulse Ox 03/13/20 11:41 97.2 F L 86 20 172/112 H 91 L Discharge Plan Discharge Patient Disposition: ADMITTED INPATIENT Discharge Problem: Hypoxia Hypertension Qualifiers: Hypertension type: unspecified Qualified Code(s): I10 - Essential (primary) hypertension ED Provider: DESIRE ARAUJO Condition: Stable Discharge Date/Time: 03/13/20 14:25
[2020-03-13 12:20] LABS: HEMATOCRIT 37.2 % (37.0-47.0)
--- NOTE | 2020-03-13 13:08 | DI ---
EXAM: Single frontal view of the chest HISTORY: Cough. COMPARISON: Chest x-ray 12/22/[address] chest 12/27/2019 FINDINGS: Cardiomediastinal silhouette is enlarged with intact sternotomy wires. There is no pneumot horax or effusion. There is no consolidation, nodule or mass. There is mild pulmonary vascular prom inence. The osseous structures are unremarkable. IMPRESSION: No acute cardiopulmonary process with stable changes of prior sternotomy and prominent p ulmonary vasculature. There is no consolidation.
[2020-03-13] MEDS ORDERED: VENTOLIN HFA (PER PUFF-WITH SPACER) IH PRN (13:20)
[2020-03-13] MEDS ORDERED: PHENERGAN WITH CODEINE 6.25/10 MG/5 ML PO PRN (13:20)
[2020-03-13] MEDS ORDERED: VASOTEC IV IVP STA (13:23)
[2020-03-13] MEDS ORDERED: VISTARIL INJ IM PRN (13:27)
[2020-03-13] MEDS ORDERED: NITROSTAT SL PRN (13:27)
[2020-03-13] MEDS ORDERED: ATROPINE SULFATE PFS IVP PRN (13:27)
[2020-03-13 14:49] VITALS: BMI 42.7
[2020-03-13] MEDS: COREG PO SCH (17:21)
[2020-03-13] MEDS: PRAVACHOL PO SCH (20:04)
[2020-03-13] MEDS: NEURONTIN PO SCH (20:04)
[2020-03-13] MEDS: COZAAR PO SCH (20:04)
[2020-03-13] MEDS: FERROUS SULFATE PO SCH (20:04)
[2020-03-13] MEDS ORDERED: NON-FORMULARY MEDICATION (Ferrous Sulfate 325 MG) PO SCH (21:00)
[2020-03-13] MEDS ORDERED: NEURONTIN PO SCH (21:00)
[2020-03-13] MEDS: TACROLIMUS 6 MG PO SCH (21:06)
[2020-03-13] MEDS: TYLENOL PO PRN (23:15)
[2020-03-14 05:38] LABS: HEMATOCRIT 34.4 % (37.0-47.0)
[2020-03-14] MEDS: TYLENOL PO PRN ×2 (07:18→21:34)
[2020-03-14] MEDS ORDERED: ASPIRIN EC PO SCH (08:30)
[2020-03-14] MEDS ORDERED: PREDNISONE PO SCH (09:00)
[2020-03-14] MEDS: ASPIRIN CHEWABLE PO SCH (09:06)
[2020-03-14] MEDS: MULTIVITAMIN TABLET PO SCH (09:07)
[2020-03-14] MEDS: COREG PO SCH ×2 (09:07→17:11)
[2020-03-14] MEDS: NEURONTIN PO SCH ×2 (09:07→20:33)
[2020-03-14] MEDS: PREDNISONE PO SCH (09:07)
[2020-03-14] MEDS: PRAVACHOL PO SCH ×2 (09:07→20:33)
[2020-03-14] MEDS: COZAAR PO SCH ×2 (09:07→20:32)
[2020-03-14] MEDS: FERROUS SULFATE PO SCH ×2 (09:07→20:33)
[2020-03-14] MEDS: CYMBALTA PO SCH (09:07)
[2020-03-14] MEDS: MYRBETRIQ PO SCH (09:07)
[2020-03-14] MEDS: TACROLIMUS 6 MG PO SCH ×2 (09:08→20:34)
[2020-03-14] MEDS ORDERED: DECADRON 4 MG/ML SDV IM STA (09:09)
[2020-03-14] MEDS: KEFLEX PO SCH ×3 (09:17→20:33)
--- NOTE | 2020-03-14 10:58 | PN ---
DATE OF SERVICE: 03/13/20 - ADMIT NOTE SUBJECTIVE: 54-year-old female with history of heart transplant hospitalized with hypoxemia and severe hypertension. The patient was short of breath, coughing. The patient had Covid test done in the emergency room and placed under Covid precautions in the hospital. In the emergency room the patient was given IV Vasotec 1.25 under my instruction. She was started on Coreg 6.25 twice a day. Dose was given. The patient's blood pressure was 130/90 around 7 p.m. The patient was feeling better. She had no distress. Her ABG on room air, pH 7.39, p02 76, pc02 48, 95% saturation on room air. The patient is going to be hospitalized. She will be continued on most of her medications. She will be observed for respiratory distress. Will wait for report on Covid swab. Blood pressure will be monitored. The patient's cardiac status is stable. PHYSICAL EXAMINATION: HEENT: Head normocephalic, atraumatic. Eyes: Extraocular muscles are intact. Pupils are equal, round and reactive to light and accommodation. Ears: No lesions. Nose appeared normal. Throat: No exudate or erythema. NECK: Supple. No JVD, no carotid bruit. No lymphadenopathy or thyromegaly. LUNGS: Decreased breath sounds but clear to auscultation. Percussion note normal. Chest symmetrical. HEART: S1, S2, no S3. No murmurs. No cyanosis or clubbing. No ascites. Pulses: Dorsalis pedis and posterior tibial pulses +1 to +2 bilaterally. ABDOMEN: Soft. Nontender. Bowel sounds active. No CVA tenderness. No mass felt. EXTREMITIES: No pedal edema. Full range of motion of all extremities, equal. NEUROLOGIC: No focal deficit. Cranial nerves II through XII are grossly intact. No headache, no double vision or headache. SKIN: Not dry. Intact. Turgor - normal. LYMPHATIC: No palpable lymph nodes/no lymphedema. MUSCULOSKELETAL: Normal joints with no swelling. Muscle tone is normal. The patient is morbidly obese with BMI of 42. She is noncompliant of lifestyle. TIME SPENT: More than 30 minutes. Plan and coordination of the patient's care discussed in the presence of nurse. LINDA
--- NOTE | 2020-03-14 13:30 | HP ---
DATE OF SERVICE: 03/13/20 HISTORY OF PRESENT ILLNESS: 54-year-old -[place]ym[place] female presented to the ER with complaints of cough, had been ongoing for three to four days. She also complains of shortness of breath that occurs at rest and with activity. On arrival she was afebrile, pulse ox showed 91% on room air and blood pressure was elevated at 172/112. She does use a CPAP at night for obstructive sleep apnea. Chest x-ray showed no acute cardiopulmonary process with stable changes of prior sternotomy and prominent pulmonary vasculature. There is no consolidation. Because of the patient's symptomatology she will be tested for Covid-19. She will be admitted to the Special Care Unit as a person under investigation with Covid-19 test pending with diagnosis of borderline hypoxia and hypertension. PAST MEDICAL HISTORY: Degenerative joint disease of the spine COPD Dyslipidemia Neuropathy Diabetes mellitus type 2, last hemoglobin A1C was 5.78 on 09/30. Obstructive sleep apnea with CPAP at night Left sciatica Anal condyloma Morbid obesity Cancer of the uterus GERD Generalized anxiety disorder Osteoarthritis of the hips Frequent UTIs for which she is followed by Dr. Solis Right lobe nodule Anemia Hypertension Uriarte's cyst of the left knee Bilateral dependent edema Noncompliance of diet, lifestyle and recommendations PAST SURGICAL HISTORY: Heart transplant in 2011 Hysterectomy 2012 due to uterine cancer REVIEW OF SYSTEMS: CONSTITUTIONAL: No night sweats. No fatigue, malaise, lethargy. No fever or chills. HEENT: Eyes: No visual changes. No eye pain. No eye discharge. ENT: No runny nose. No epistaxis. No sinus pain. No sore throat. No odynophagia. No ear pain. No congestion. RESPIRATORY: Cough and shortness of breath. No hemoptysis. CARDIOVASCULAR: No angina symptoms. No CHF symptoms. No atypical chest pain for CAD. No palpitations. No PND. No orthopnea. GASTROINTESTINAL: No abdominal pain. No nausea or vomiting. No diarrhea or constipation. No hematemesis. No hematochezia. GENITOURINARY: No urgency. No frequency. No dysuria. No hematuria. No obstructive symptoms. No discharge. No pain. No significant abnormal bleeding. MUSCULOSKELETAL: No musculoskeletal pain. No joint swelling. No arthritis. NEUROLOGICAL: No headache. No neck pain. No syncope. No seizures. No dizziness. PSYCHIATRIC: Not anxious. No depression. No suicidal thoughts. No homicidal thoughts. SKIN: No rash. No lesions. No wounds. ENDOCRINE: No unexplained weight loss. No weight gain. HEMATOLOGIC/LYMPHATIC: No anemia. No purpura. No petechiae. No prolonged or excessive bleeding. No palpable lymph nodes. PERSONAL/FAMILY/SOCIAL HISTORY: The patient is single. She lives with her daughter. She does not smoke or use any alcohol. MEDICATIONS: (HOME) Aspirin 81 mg p.o. daily Prograf 6 mg p.o. b.i.d. Multivitamin one each p.o. daily Gabapentin 300 mg p.o. b.i.d. Pravastatin 40 mg p.o. b.i.d. Azathioprine 25 mg p.o. bedtime Cymbalta 60 mg p.o. daily Ferrous Sulfate 325 mg p.o. b.i.d. Sulfamethoxazole-trimethoprim one each p.o. MoWeFr Losartan 50 mg p.o. b.i.d. Mirabegron 25 mg p.o. daily Prednisone 5 mg p.o. daily Albuterol two puff IH q.6h p.r.n. Promethazine-Codeine 6.25-10 mg/5 mL syrup 5 to 10 mL p.o. q.8h p.r.n. ALLERGIES: NKDA PHYSICAL EXAMINATION: VITAL SIGNS: Temperature 97.2, pulse 86, respirations 20, BP 172/112, pulse ox 91% on room air. HEENT: Head normocephalic, atraumatic. Eyes: Extraocular muscles are intact. Pupils are equal, round and reactive to light and accommodation. Ears: No lesions. Nose appeared normal. Throat: No exudate or erythema. NECK: Supple. No JVD, no carotid bruit. No lymphadenopathy or thyromegaly. LUNGS: Diminished breath sounds. Clear to auscultation. Percussion note normal. Chest symmetrical. HEART: S1, S2, no S3. No murmur. No cyanosis or clubbing. No ascites. Pulses: Dorsalis pedis and posterior tibial pulses +1 to +2 bilaterally. ABDOMEN: Soft. Nontender. Bowel sounds active. No CVA tenderness. No mass felt. EXTREMITIES: No edema. Full range of motion of all extremities, equal. NEUROLOGIC: No focal deficit. Cranial nerves II through XII are grossly intact. No headache, no double vision or headache. SKIN: Not dry. Intact. Turgor - normal. LYMPHATIC: No palpable lymph nodes/no lymphedema. MUSCULOSKELETAL: Normal joints with no swelling. Muscle tone is normal. LABS: White blood count 4.68, hemoglobin 11.6, hematocrit 37.2, platelets 108. Sodium 137.7, potassium 4.7, BUN 21.1, creatinine 1.09. AST 22.9, ALT 18.5. Covid test pending. Blood gases on room air: 02 saturation 95, pH 7.399, pc02 48.9, p02 76.0, HC03 30.2, c02 32. Chest x-ray showed no acute cardiopulmonary process with stable changes of prior sternotomy and prominent pulmonary vasculature. There is no consolidation. ASSESSMENT: 1. BORDERLINE HYPOXIA 2. HYPERTENSION 3. PERSON UNDER INVESTIGATION WITH COVID TEST PENDING 4. STATUS POST HEART TRANSPLANT 5. COPD 6. OBSTRUCTIVE SLEEP APNEA WITH CPAP 7. DIABETES MELLITUS TYPE 2 8. MORBID OBESITY PLAN: 1. Admit to Special Care. 2. PUI precautions in place. 3. Covid-19 test pending. 4. Will monitor ABG. 5. CBC and CMP daily. 6. Continue home medications. 7. 02 at 1-2L nasal cannula as needed. 8. Cardiac diet. 9. Vasotec 1.25 given IV in the ER. 10. Start Coreg 6.25 mg twice daily. 11. We will monitor closely for respiratory distress. The patient was seen and examined with Dr. Zimmerman. Plan was discussed. TIME SPENT: More than 70 minutes. [facility]
[2020-03-15 04:48] LABS: HEMATOCRIT 33.7 % (37.0-47.0)
[2020-03-15] MEDS: KEFLEX PO SCH ×3 (06:03→21:37)
[2020-03-15] MEDS: PRAVACHOL PO SCH ×2 (09:34→21:04)
[2020-03-15] MEDS: ASPIRIN CHEWABLE PO SCH (09:34)
[2020-03-15] MEDS: PREDNISONE PO SCH (09:34)
[2020-03-15] MEDS: COREG PO SCH ×2 (09:35→17:48)
[2020-03-15] MEDS: CYMBALTA PO SCH (09:35)
[2020-03-15] MEDS: MULTIVITAMIN TABLET PO SCH (09:35)
[2020-03-15] MEDS: NEURONTIN PO SCH ×2 (09:35→21:04)
[2020-03-15] MEDS: COZAAR PO SCH ×2 (09:36→21:04)
[2020-03-15] MEDS: MYRBETRIQ PO SCH (09:37)
[2020-03-15] MEDS: FERROUS SULFATE PO SCH ×2 (09:37→21:05)
[2020-03-15] MEDS: TACROLIMUS 6 MG PO SCH ×2 (09:38→21:03)
[2020-03-15] MEDS ORDERED: DECADRON 4 MG/ML SDV IM STA (12:54)
[2020-03-15] MEDS ORDERED: ZYRTEC PO SCH (13:00)
[2020-03-15] MEDS ORDERED: BACTRIM DS 800/160 MG PO SCH ×2 (13:00→14:00)
[2020-03-15] MEDS: CLARITIN PO SCH (14:03)
[2020-03-15] MEDS: NORVASC PO SCH (21:04)
[2020-03-15] MEDS: IMURAN PO SCH (21:05)
[2020-03-16] MEDS: TYLENOL PO PRN (02:06)
[2020-03-16 05:19] LABS: HEMATOCRIT 34.5 % (37.0-47.0)
[2020-03-16] MEDS: KEFLEX PO SCH ×3 (06:04→20:07)
[2020-03-16] MEDS ORDERED: LOPRESSOR PO STA (06:17)
[2020-03-16] MEDS ORDERED: COZAAR PO ONE (06:17)
[2020-03-16] MEDS ORDERED: VASOTEC IV IVP PRN (08:18)
[2020-03-16] MEDS: ASPIRIN CHEWABLE PO SCH (08:40)
[2020-03-16] MEDS: NEURONTIN PO SCH ×2 (08:40→20:08)
[2020-03-16] MEDS: MYRBETRIQ PO SCH (08:40)
[2020-03-16] MEDS: CYMBALTA PO SCH (08:40)
[2020-03-16] MEDS: PREDNISONE PO SCH (08:40)
[2020-03-16] MEDS: CLARITIN PO SCH (08:41)
[2020-03-16] MEDS: PRAVACHOL PO SCH ×2 (08:41→20:07)
[2020-03-16] MEDS: FERROUS SULFATE PO SCH ×2 (08:41→20:08)
[2020-03-16] MEDS: COREG PO SCH ×2 (08:41→17:06)
[2020-03-16] MEDS: MULTIVITAMIN TABLET PO SCH (08:41)
[2020-03-16] MEDS: LOPRESSOR PO SCH (08:42)
[2020-03-16] MEDS: COZAAR PO SCH ×2 (08:42→20:07)
[2020-03-16] MEDS: TACROLIMUS 6 MG PO SCH ×2 (08:44→20:12)
--- NOTE | 2020-03-16 09:47 | PCM.PROG ---
Attending Provider: ATTENDING PROVIDER: Dr. ALETHA CHIU This patient is seen with Bere Barrow, Nurse Practitioner. DATE OF SERVICE: 03/16/20 SUBJECTIVE: This 54 year old AA/BLACK F was hospitalized 03/13/20. The patient is alert and resting in bed. She has good oral intake and appetite. She is getting up and about in the room. Her Blood pressure this morning is 166/103. We will recheck this. We will start Vasotec 1.25mg Q 6 hour PRN. Potassium is 5.12. We will recheck that again this morning. REVIEW OF SYSTEMS: CONSTITUTIONAL: No night sweats. No fatigue, malaise, lethargy. No fever or chills. HEENT: Eyes: No visual changes. No eye pain. No eye discharge. ENT: No runny nose. No epistaxis. No sinus pain. No odynophagia. No congestion. RESPIRATORY: No cough, no congestion. No hemoptysis. No shortness of breath. CARDIOVASCULAR: No angina symptoms. No CHF symptoms. No atypical chest pain for CAD. No palpitations. No orthopnea.. GASTROINTESTINAL: No abdominal pain. No nausea or vomiting. No diarrhea or constipation. No hematemesis. No hematochezia. GENITOURINARY: No urgency. No frequency. No dysuria. No hematuria. No obstructive symptoms. No discharge. No pain. No significant abnormal bleeding. MUSCULOSKELETAL: No musculoskeletal pain; no joint swelling. NEUROLOGICAL: Awake, alert, oriented to time, place and person. No headache. No neck pain. No syncope. No seizures. No dizziness. PSYCHIATRIC: Not anxious. No depression. No suicidal thoughts. No homicidal thoughts. SKIN: No rash. No lesions. No wounds. ENDOCRINE: No unexplained weight loss. No weight gain. HEMATOLOGIC/LYMPHATIC: No anemia. No purpura. No petechiae. No prolonged or excessive bleeding. No palpable lymph nodes. PHYSICAL EXAMINATION: GENERAL: The patient is awake, alert and oriented, lying in bed in no distress. VITAL SIGNS: Temperature 98.6 F, Pulse 69, Respiratory Rate 18, BP 166/103, Pulse Ox 99% HEENT: Head normocephalic, atraumatic. Eyes: Extraocular muscles are intact. Pupils are equal, round and reactive to light and accommodation. Ears: No lesions. Nose appeared normal. Throat: No exudate or erythema. NECK: Supple. No JVD, no carotid bruit. No lymphadenopathy or thyromegaly. LUNGS: Diminished breath sounds. Clear to auscultation. Percussion note normal. Chest symmetrical. HEART: S1, S2, no S3. No murmurs. No cyanosis or clubbing. No ascites. Pulses: Dorsalis pedis and posterior tibial pulses +1 to +2 both sides. ABDOMEN: Soft. Non-tender. Bowel sounds active. No CVA tenderness. No mass felt. EXTREMITIES: No edema. Full range of motion of all extremities, equal. NEUROLOGIC: No focal deficit. Cranial nerves II through XII are grossly intact. No headache, no double vision or headache. SKIN: Not dry. Intact. Turgor-normal. LYMPHATIC: No palpable lymph nodes/no lymphedema. MUSCULOSKELETAL: Normal joints with no swelling. Muscle tone is normal. LAB REVIEW: 03/16/20 04:55 03/16/20 04:55 03/16/20 04:55: Sodium 134.7, Potassium 5.12 H, Chloride 97.1 L, Carbon Dioxide 33.2 H, Anion Gap 9.52, BUN 29.3 H, Creatinine 1.09, Estimated GFR (MDRD) 64.00, BUN/Creatinine Ratio 26.88, Glucose 106.4 H, Calcium 9.55, Total Bilirubin 0.48, AST 23.6, ALT 23.9, Alkaline Phosphatase 60.3, Total Protein 7.20, Albumin 4.25, Globulin 2.95, Albumin/Globulin Ratio 1.44 03/16/20 04:55: WBC 7.45, RBC 3.80 L, Hgb 10.8 L, Hct 34.5 L, MCV 90.8, MCH 28.4, MCHC 31.3 L, RDW Coeff of Gabriela 14.1, Plt Count 116 L, Immature Gran % (Auto) 0.4, Neut % (Auto) 82.6 H, Lymph % (Auto) 12.5, Bell % (Auto) 4.2, Eos % (Auto) 0.0, Baso % (Auto) 0.3, Neut # (Auto) 6.2, Lymph # (Auto) 0.9, Bell # (Auto) 0.3 L, Eos # (Auto) 0.0, Baso # (Auto) 0.0, Immature Gran # (Auto) 0.0 ASSESSMENT: Please see below. 1. BORDERLINE HYPOXIA 2. HYPERTENSION 3. STATUS POST HEART TRANSPLANT 4. COPD 5. OBSTRUCTIVE SLEEP APNEA WITH CPAP 6. DIABETES MELLITUS TYPE 2 7. MORBID OBESITY PLAN: 1. Encourage good intake 2. Encourage the patient to be up and about 3. Monitor blood pressure 4. Vasotec 1.25mg for systolic greater than 160 5. Recheck potassium Plan and coordination of the patient's care discussed in the presence of Property Management Supervisor and nurse. SCRIBED BY: Pily MERCHANT scribed while in presence of service performed by Dr. Chiu/Bere Barrow APRN on 03/16/20 ([id number])
[2020-03-16] MEDS: IMURAN PO SCH (20:08)
[2020-03-16] MEDS: NORVASC PO SCH (20:08)
[2020-03-17] MEDS: KEFLEX PO SCH ×2 (05:51→13:13)
[2020-03-17] MEDS: TYLENOL PO PRN (05:55)
[2020-03-17 05:58] LABS: HEMATOCRIT 36.7 % (37.0-47.0)
[2020-03-17] MEDS: TACROLIMUS 6 MG PO SCH (08:19)
[2020-03-17] MEDS: CYMBALTA PO SCH (08:20)
[2020-03-17] MEDS: ASPIRIN CHEWABLE PO SCH (08:20)
[2020-03-17] MEDS: NEURONTIN PO SCH (08:20)
--- NOTE | 2020-03-17 08:20 | PCM.PROG ---
Attending Provider: ATTENDING PROVIDER: Dr. ALETHA CHIU This patient is seen with Bere Barrow, Nurse Practitioner. DATE OF SERVICE: 03/17/20 SUBJECTIVE: This 54 year old AA/BLACK F was hospitalized 03/13/20. The patient is sitting in bed, resting comfortably. She is eating and drinking well. She is up and about in the room. Blood pressure this morning is 137/87. Overall, it has been better controlled. The patient is asking if she can go home. REVIEW OF SYSTEMS: CONSTITUTIONAL: No night sweats. No fatigue, malaise, lethargy. No fever or chills. HEENT: Eyes: No visual changes. No eye pain. No eye discharge. ENT: No runny nose. No epistaxis. No sinus pain. No odynophagia. No congestion. RESPIRATORY: No cough, no congestion. No hemoptysis. No shortness of breath. CARDIOVASCULAR: No angina symptoms. No CHF symptoms. No atypical chest pain for CAD. No palpitations. No orthopnea.. GASTROINTESTINAL: No abdominal pain. No nausea or vomiting. No diarrhea or constipation. No hematemesis. No hematochezia. GENITOURINARY: No urgency. No frequency. No dysuria. No hematuria. No obstructive symptoms. No discharge. No pain. No significant abnormal bleeding. MUSCULOSKELETAL: No musculoskeletal pain; no joint swelling. NEUROLOGICAL: Awake, alert, oriented to time, place and person. Positive for headache. No neck pain. No syncope. No seizures. No dizziness. PSYCHIATRIC: Not anxious. No depression. No suicidal thoughts. No homicidal thoughts. SKIN: No rash. No lesions. No wounds. ENDOCRINE: No unexplained weight loss. No weight gain. HEMATOLOGIC/LYMPHATIC: No anemia. No purpura. No petechiae. No prolonged or excessive bleeding. No palpable lymph nodes. PHYSICAL EXAMINATION: GENERAL: The patient is awake, alert and oriented, lying/sitting in bed in no distress. VITAL SIGNS: Temperature 97.9 F, Pulse 67, Respiratory Rate 18, BP 137/87, Pulse Ox 98% HEENT: Head normocephalic, atraumatic. Eyes: Extraocular muscles are intact. Pupils are equal, round and reactive to light and accommodation. Ears: No lesions. Nose appeared normal. Throat: No exudate or erythema. NECK: Supple. No JVD, no carotid bruit. No lymphadenopathy or thyromegaly. LUNGS: Diminished but clear to auscultation. Percussion note normal. Chest symmetrical. HEART: S1, S2, no S3. No murmurs. No cyanosis or clubbing. No ascites. Pulses: Dorsalis pedis and posterior tibial pulses +1 to +2 both sides. ABDOMEN: Soft. Non-tender. Bowel sounds active. No CVA tenderness. No mass felt. EXTREMITIES: No edema. Full range of motion of all extremities, equal. NEUROLOGIC: No focal deficit. Cranial nerves II through XII are grossly intact. No headache, no double vision or headache. SKIN: Not dry. Intact. Turgor-normal. LYMPHATIC: No palpable lymph nodes/no lymphedema. MUSCULOSKELETAL: Normal joints with no swelling. Muscle tone is normal. LAB REVIEW: 03/17/20 05:15 03/17/20 05:15 03/17/20 05:15: Sodium 136.4, Potassium 5.10, Chloride 98.5, Carbon Dioxide 33.8 H, Anion Gap 9.20, BUN 29.4 H, Creatinine 1.19, Estimated GFR (MDRD) 58.00, BUN/Creatinine Ratio 24.70, Glucose 90.7, Calcium 9.17, Total Bilirubin 0.45, AST 19.7, ALT 22.9, Alkaline Phosphatase 57.1, Total Protein 6.87, Albumin 4.05, Globulin 2.82, Albumin/Globulin Ratio 1.43 03/17/20 05:15: WBC 7.25, RBC 3.95 L, Hgb 11.4 L, Hct 36.7 L, MCV 92.9, MCH 28.9, MCHC 31.1 L, RDW Coeff of Gabriela 14.3, Plt Count 122 L, Immature Gran % (Auto) 0.6, Neut % (Auto) 63.8, Lymph % (Auto) 26.6, [place] % (Auto) 7.0, Eos % (Auto) 1.4, Baso % (Auto) 0.6, Neut # (Auto) 4.6, Lymph # (Auto) 1.9, [place] # (Auto) 0.5, Eos # (Auto) 0.1, Baso # (Auto) 0.0, Immature Gran # (Auto) 0.0 03/16/20 10:00: Potassium 4.18 ASSESSMENT: Please see below. 1. BORDERLINE HYPOXIA 2. HYPERTENSION 3. STATUS POST HEART TRANSPLANT 4. COPD 5. OBSTRUCTIVE SLEEP APNEA WITH CPAP 6. DIABETES MELLITUS TYPE 2 7. MORBID OBESITY PLAN: 1. Encourage good oral nutritional intake. 2. Encourage the patient to be up and about. 3. Anticipate discharge today. 4. Will need daily Claritin or Zyrtec at home. Plan and coordination of the patient's care discussed in the presence of Furnace Helper and nurse. CONDITION: Stable SCRIBED BY: TACOS GODINEZ Infrastructure Technician scribed while in presence of service performed by Dr. Chiu/Bere Barrow APRN on 03/17/20 ([id number])
[2020-03-17] MEDS: PREDNISONE PO SCH (08:21)
[2020-03-17] MEDS: FERROUS SULFATE PO SCH (08:21)
[2020-03-17] MEDS: COREG PO SCH (08:21)
[2020-03-17] MEDS: LOPRESSOR PO SCH (08:21)
[2020-03-17] MEDS: MULTIVITAMIN TABLET PO SCH (08:21)
[2020-03-17] MEDS: COZAAR PO SCH (08:21)
[2020-03-17] MEDS: PRAVACHOL PO SCH (08:21)
[2020-03-17] MEDS: MYRBETRIQ PO SCH (08:21)
[2020-03-17] MEDS: CLARITIN PO SCH (08:21)
[2020-03-17] MEDS ORDERED: BACTRIM DS 800/160 MG PO SCH (09:00)
[2020-03-17 10:33] VITALS: BP 110/78; TEMP 98.4
--- NOTE | 2020-03-17 12:32 | PN ---
DATE OF SERVICE: 03/16/2020 SUBJECTIVE: The patient was seen and examined with the Nurse Practitioner. The patient's headache is under control. PHYSICAL EXAMINATION: HEENT: Head normocephalic, atraumatic. Eyes: Extraocular muscles are intact. Pupils are equal, round and reactive to light and accommodation. Ears: No lesions. Nose appeared normal. Throat: No exudate or erythema. NECK: Supple. No JVD, no carotid bruit. No lymphadenopathy or thyromegaly. LUNGS: Clear to auscultation. Percussion note normal. Chest symmetrical. HEART: S1, S2, no S3. No murmurs. No cyanosis or clubbing. No ascites. Pulses: Dorsalis pedis and posterior tibial pulses +1 to +2 bilaterally. ABDOMEN: Soft. Nontender. Bowel sounds active. No CVA tenderness. No mass felt. EXTREMITIES: No edema. Full range of motion of all extremities, equal. NEUROLOGIC: No focal deficit. Cranial nerves II through XII are grossly intact. No headache, no double vision or headache. SKIN: Not dry. Intact. Turgor - normal. LYMPHATIC: No palpable lymph nodes/no lymphedema. MUSCULOSKELETAL: Normal joints with no swelling. Muscle tone is normal. The patient is morbidly obese and again advised to lose weight. Advised activity. Advised to join cardiac rehab. CONDITION: Stabilizing. With improvement with acute sinusitis symptoms. Blood pressure seems to be under control TIME SPENT: More than 30 minutes. Plan and coordination of the patient's care discussed in the presence of nurse. LINDA
--- NOTE | 2020-03-23 11:43 | CM.DICTOOL ---
ADMISSION: 03/13/20 14:06 DISCHARGE: MARCH 17, 2020 DATE OF SERVICE: 03/17/20 FINAL DIAGNOSIS ACUTE BRONCHITIS ACUTE SINUSITIS HYPERTENSION, SEVERE PAST MEDICAL HISTORY: HYPERTENSION CHRONIC LUNG DISEASE DYSLIPIDEMIA DIABETES MELLITUS, TYPE 2, A1C 09/2019 - 5.78 NEUROPATHY OBSTRUCTIVE SLEEP APNEA, CPAP AT NIGHT LEFT SCIATICA ANAL CONDYLOMA MORBID OBESITY GERD DENIZ OA OF THE HIPS FREQUENT UTI, FOLLOWED BY DR. BAZAN ANEMIA DJD SPINE PACHECO'S CYST LT KNEE BILATERAL DEPENDENT EDEMA NON-COMPLIANCE OF DIET,LIFESTYLE AND RECOMMENDATIONS PAST SURGICAL HISTORY: HEART TRANSPLANT 2011 HYSTERECTOMY 2011, UTERINE CA LAST VITALS Temp Pulse Resp BP Pulse Ox 98.4 F 70 18 110/78 99 03/17/20 10:00 03/17/20 10:00 03/17/20 10:00 03/17/20 10:00 03/17/20 10:00 TAKE THESE MEDICATIONS AT HOME Albuterol Sulfate (Ventolin Hfa (Per Puff-With Spacer)) 2 puff IH Q6H PRN PRN Reason: Cough Amlodipine Besylate (Norvasc) 5 mg PO BEDTIME [facility] Last Admin: 03/16/20 20:08 Dose: 5 mg Documented by: Aspirin (Aspirin Chewable) 81 mg PO DAILYWM [facility] Last Admin: 03/17/20 08:20 Dose: 81 mg Documented by: Azathioprine (Imuran) 25 mg PO BEDTIME Last Admin: 03/16/20 20:08 Dose: 25 mg Documented by: Carvedilol (Coreg) 6.25 mg PO BIDWM [facility] Last Admin: 03/17/20 08:21 Dose: 6.25 mg Documented by: Cephalexin (Keflex) 500 mg PO Q8HR [facility] Stop: 03/20/20 09:29 Last Admin: 03/17/20 05:51 Dose: 500 mg Documented by: Duloxetine HCl (Cymbalta) 60 mg PO DAILY [facility] Last Admin: 03/17/20 08:20 Dose: 60 mg Documented by: Ferrous Sulfate (Ferrous Sulfate) 324 mg PO BID [facility] Last Admin: 03/17/20 08:21 Dose: 324 mg Documented by: Gabapentin (Neurontin) 300 mg PO BID [facility] Last Admin: 03/17/20 08:20 Dose: 300 mg Documented by: Zyrtec 10 mg PO DAILY [facility] Last Admin: 03/17/20 08:21 Dose: 10 mg Documented by: Losartan Potassium (Cozaar) 50 mg PO BID [facility] Last Admin: 03/17/20 08:21 Dose: 50 mg Documented by: Metoprolol Tartrate (Lopressor) 25 mg PO DAILY [facility] Last Admin: 03/17/20 08:21 Dose: 25 mg Documented by: Mirabegron (Myrbetriq) 25 mg PO DAILY [facility] Last Admin: 03/17/20 08:21 Dose: 25 mg Documented by: Multivitamins (Multivitamin Tablet) 1 tab PO DAILY [facility] Last Admin: 03/17/20 08:21 Dose: 1 tab Documented by: Non-Formulary Medication (Tacrolimus [Prograf]) 6 mg PO BID [facility] Last Admin: 03/17/20 08:19 Dose: 6 mg Documented by: Pravastatin Sodium (Pravachol) 40 mg PO BID [facility] Last Admin: 03/17/20 08:21 Dose: 40 mg Documented by: Prednisone (Prednisone) 5 mg PO DAILYWM [facility] Last Admin: 03/17/20 08:21 Dose: 5 mg Documented by: Promethazine HCl/Codeine (Phenergan With Codeine 6.25/10 Mg/5 Ml) 5 - 10 ml PO Q8H PRN PRN Reason: Nausea / Vomiting Trimethoprim/Sulfamethoxazole (Bactrim Ds 800/160 Mg) 0.5 tab PO MoWeFr@0900 [facility] Stop: 03/27/20 10:00 Last Admin: 03/17/20 08:28 Dose: 0.5 tab Documented by: ALLERGIES No Known Allergies Allergy (Uncoded 03/13/20 11:46) DISCONTINUED MEDICATIONS NONE NEW PRESCRIPTIONS: COREG 6.25 MG TAKE 1 BID WITH MEAL KEFLEX 500 MG TAKE 1 TID FOR 5 DAYS ZYRTEC 10 MG TAKE 1 DAILY SMOKING: NOT APPLICABLE DISEASE SPECIFIC EDUCATION: NEW MEDICATIONS APPOINTMENT LAB REVIEW: 03/17/20 05:15 03/17/20 05:15 03/17/20 05:15: Sodium 136.4, Potassium 5.10, Chloride 98.5, Carbon Dioxide 33.8 H, Anion Gap 9.20, BUN 29.4 H, Creatinine 1.19, Estimated GFR (MDRD) 58.00, BUN/Creatinine Ratio 24.70, Glucose 90.7, Calcium 9.17, Total Bilirubin 0.45, AST 19.7, ALT 22.9, Alkaline Phosphatase 57.1, Total Protein 6.87, Albumin 4.05, Globulin 2.82, Albumin/Globulin Ratio 1.43 03/17/20 05:15: WBC 7.25, RBC 3.95 L, Hgb 11.4 L, Hct 36.7 L, MCV 92.9, MCH 28.9, MCHC 31.1 L, RDW Coeff of Gabriela 14.3, Plt Count 122 L, Immature Gran % (Auto) 0.6, Neut % (Auto) 63.8, Lymph % (Auto) 26.6, [place] % (Auto) 7.0, Eos % (Auto) 1.4, Baso % (Auto) 0.6, Neut # (Auto) 4.6, Lymph # (Auto) 1.9, [place] # ( Auto) 0.5, Eos # (Auto) 0.1, Baso # (Auto) 0.0, Immature Gran # (Auto) 0.0 PLAN: DISCHARGE HOME DIET: HEART HEALTHY ACTIVITY: RESUME TOLERATED USE C-PAP AT NIGHT FOR SLEEP APNEA AN APPOINTMENT IS SCHEDULED FOR March AT 1:[address] CHIU/MAC COREY APRN/KEYANNA MEANS APRN CODE STATUS: FULL CODE MS. PERKINS IS ALERT AND ORIENTED X 4. SHE IS INDEPENDENT WITH ACTIVITIES OF DAILY LIVING. SHE IS AWARE AND AGREEABLE TO PLANS FOR DISCHARGE HOME TODAY. SHE IS AMBULATORY TO THE BATHROOM AND IN ROOM PER SELF. SHE DOES NOT REQUIRE STAFF ASSISTANCE OR ASSISTIVE DEVICE WITH AMBULATION. MEAL INTAKES ARE GOOD; SHE IS CONSUMING 100% OF HER MEALS. MS. PERKINS IS CONTINENT OF BOWEL AND BLADDER. HYDRATION STATUS IS GOOD. SKIN CONDITION IS GOOD. DIZZINESS AND WEAKNESS HAVE SUBSIDED, BUT MILD HEADACHE CONTINUES. MD ENRIQUE STAHL APRN
--- NOTE | 2020-03-27 10:12 | DS ---
DATE OF SERVICE: 03/17/20 FINAL DIAGNOSIS: 1. ACUTE BRONCHITIS 2. ACUTE SINUSITIS 3. HYPERTENSION, SEVERE PAST MEDICAL HISTORY: 4. HYPERTENSION 5. CHRONIC LUNG DISEASE 6. DYSLIPIDEMIA 7. DIABETES MELLITUS, TYPE 2, A1C 09/2019 - 5.78 8. NEUROPATHY 9. OBSTRUCTIVE SLEEP APNEA, CPAP AT NIGHT 10. LEFT SCIATICA 11. ANAL CONDYLOMA 12. MORBID OBESITY 13. GERD 14. DENIZ 15. OA OF THE HIPS 16. FREQUENT UTI, FOLLOWED BY DR. BAZAN 17. 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 PACHECO'S CYST LT KNEE 20. BILATERAL DEPENDENT EDEMA 21. NON-COMPLIANCE OF DIET,LIFESTYLE AND RECOMMENDATIONS PAST SURGICAL HISTORY: 22. HEART TRANSPLANT 2011 23. HYSTERECTOMY 2011, UTERINE CA LAST VITALS Temp Pulse Resp BP Pulse Ox 98.4 F 70 18 110/78 99 03/17/20 10:00 03/17/20 10:00 03/17/20 10:00 03/17/20 10:00 03/17/20 10:00 DISCHARGE INSTRUCTIONS: 1. USE C-PAP AT NIGHT FOR SLEEP APNEA. 2. AN APPOINTMENT IS SCHEDULED FOR March AT 1:[address] CHIU/MAC COREY APRN/KEYANNA MEANS APRN 3. CODE STATUS: FULL CODE. MEDICATIONS AT DISCHARGE: Albuterol Sulfate (Ventolin Hfa (Per Puff-With Spacer)) 2 puff IH Q6H PRN PRN Reason: Cough Amlodipine Besylate (Norvasc) 5 mg PO BEDTIME [facility] Last Admin: 03/16/20 20:08 Dose: 5 mg Documented by: Aspirin (Aspirin Chewable) 81 mg PO DAILYWM [facility] Last Admin: 03/17/20 08:20 Dose: 81 mg Documented by: Azathioprine (Imuran) 25 mg PO BEDTIME Last Admin: 03/16/20 20:08 Dose: 25 mg Documented by: Carvedilol (Coreg) 6.25 mg PO BIDWM [facility] Last Admin: 03/17/20 08:21 Dose: 6.25 mg Documented by: Cephalexin (Keflex) 500 mg PO Q8HR [facility] Stop: 03/20/20 09:29 Last Admin: 03/17/20 05:51 Dose: 500 mg Documented by: Duloxetine HCl (Cymbalta) 60 mg PO DAILY [facility] Last Admin: 06/05/20 08:20 Dose: 60 mg Documented by: Ferrous Sulfate (Ferrous Sulfate) 324 mg PO BID [facility] Last Admin: 03/17/20 08:21 Dose: 324 mg Documented by: Gabapentin (Neurontin) 300 mg PO BID [facility] Last Admin: 03/17/20 08:20 Dose: 300 mg Documented by: Zyrtec 10 mg PO DAILY [facility] Last Admin: 03/17/20 08:21 Dose: 10 mg Documented by: Losartan Potassium (Cozaar) 50 mg PO BID [facility] Last Admin: 03/17/20 08:21 Dose: 50 mg Documented by: Metoprolol Tartrate (Lopressor) 25 mg PO DAILY [facility] Last Admin: 03/17/20 08:21 Dose: 25 mg Documented by: Mirabegron (Myrbetriq) 25 mg PO DAILY [facility] Last Admin: 03/17/20 08:21 Dose: 25 mg Documented by: Multivitamins (Multivitamin Tablet) 1 tab PO DAILY [facility] Last Admin: 03/17/20 08:21 Dose: 1 tab Documented by: Non-Formulary Medication (Tacrolimus ) 6 mg PO BID [facility] Last Admin: 03/17/20 08:19 Dose: 6 mg Documented by: Pravastatin Sodium (Pravachol) 40 mg PO BID [facility] Last Admin: 03/17/20 08:21 Dose: 40 mg Documented by: Prednisone (Prednisone) 5 mg PO DAILYWM [facility] Last Admin: 03/17/20 08:21 Dose: 5 mg Documented by: Promethazine HCl/Codeine (Phenergan With Codeine 6.25/10 Mg/5 Ml) 5 - 10 ml PO Q8H PRN PRN Reason: Nausea / Vomiting Trimethoprim/Sulfamethoxazole (Bactrim Ds 800/160 Mg) 0.5 tab PO MoWeFr@0900 [facility] Stop: 03/27/20 10:00 Last Admin: 03/17/20 08:28 Dose: 0.5 tab Documented by: NEW PRESCRIPTIONS: COREG 6.25 MG TAKE 1 BID WITH MEAL KEFLEX 500 MG TAKE 1 TID FOR 5 DAYS ZYRTEC 10 MG TAKE 1 DAILY DISCONTINUED MEDICATIONS: NONE DIET INSTRUCTIONS: HEART HEALTHY ACTIVITY: RESUME TOLERATED SMOKING: NOT APPLICABLE DISEASE SPECIFIC EDUCATION: NEW MEDICATIONS APPOINTMENT HOSPITAL COURSE: This 54-year-old patient was hospitalized with shortness of breath, cough, congestion, sinusitis, and hypertension. The patient's Covid was negative. She was treated with Keflex for acute sinusitis, bronchitis. Intermittent Decadron shot was given. Coreg was added to her medication list for her hypertension. The rest of the medications were continued. The patient's main problem is noncompliance of diet especially with morbid obesity. The patient is strongly advised to lose weight, cut down on salt intake. Advised to take her medication on a regular basis. She says that she does miss her medication here and there all the time. The patient's cardiovascular status was stable. Condition at the time of discharge stable. Telemetry did not reveal any arrhythmias. Cardiovascular status and respiratory status normal. LAB REVIEW: 03/17/20 05:15: Sodium 136.4, Potassium 5.10, Chloride 98.5, Carbon Dioxide 33.8 H, Anion Gap 9.20, BUN 29.4 H, Creatinine 1.19, Estimated GFR (MDRD) 58.00, BUN/Creatinine Ratio 24.70, Glucose 90.7, Calcium 9.17, Total Bilirubin 0.45, AST 19.7, ALT 22.9, Alkaline Phosphatase 57.1, Total Protein 6.87, Albumin 4.05, Globulin 2.82, Albumin/Globulin Ratio 1.43 03/17/20 05:15: WBC 7.25, RBC 3.95 L, Hgb 11.4 L, Hct 36.7 L, MCV 92.9, MCH 28.9, MCHC 31.1 L, RDW Coeff of Gabriela 14.3, Plt Count 122 L, Immature Gran % (Auto) 0.6, Neut % (Auto) 63.8, Lymph % (Auto) 26.6, [place] % (Auto) 7.0, Eos % (Auto) 1.4, Baso % (Auto) 0.6, Neut # (Auto) 4.6, Lymph # (Auto) 1.9, [place] # (Auto) 0.5, Eos # (Auto) 0.1, Baso # (Auto) 0.0, Immature Gran # (Auto) 0.0 TIME SPENT: More than 60 minutes. MTDD
--- NOTE | 2020-03-27 10:32 | PN ---
CODING FOR BILLING 03/13/20 ADMISSION DAY LEVEL 5 03/14/20 INTERMEDIATE 03/15/20 INTERMEDIATE 03/16/20 INTERMEDIATE 03/17/20 DISCHARGE MTDD
--- NOTE | 2020-03-27 10:47 | PN ---
DATE OF SERVICE: 03/15/20 SUBJECTIVE: 54-year-old black female seen this morning. Her blood pressure is borderline. It has been staying much better. She still has mild headache with acute sinusitis being treated with Keflex. She is on Coreg at the present time which is a new medication. The rest of the medications have been continued. The patient is going to have Norvasc 5 mg at night. Metoprolol will be restarted 25 mg p.o. daily. REVIEW OF SYSTEMS: CONSTITUTIONAL: No night sweats. No fatigue, malaise, lethargy. No fever or chills. HEENT: Eyes: No visual changes. No eye pain. No eye discharge. ENT: Positive for sinus drainage. No epistaxis. No sinus pain. No sore throat. No odynophagia. No congestion. RESPIRATORY: No cough, no congestion. No hemoptysis. No shortness of breath. CARDIOVASCULAR: No angina symptoms. No CHF symptoms. No atypical chest pain for CAD. No palpitations. No PND. No orthopnea. GASTROINTESTINAL: No abdominal pain. No nausea or vomiting. No diarrhea or constipation. No hematemesis. No hematochezia. GENITOURINARY: No urgency. No frequency. No dysuria. No hematuria. No obstructive symptoms. No discharge. No pain. No significant abnormal bleeding. MUSCULOSKELETAL: No musculoskeletal pain; no joint swelling. NEUROLOGICAL: Mild headache. No neck pain. No syncope. No seizures. No dizziness. PSYCHIATRIC: Not anxious. No depression. No suicidal thoughts. No homicidal thoughts. SKIN: No rash. No lesions. No wounds. ENDOCRINE: No unexplained weight loss. No weight gain. HEMATOLOGIC/LYMPHATIC: No anemia. No purpura. No petechiae. No prolonged or excessive bleeding. No palpable lymph nodes. PHYSICAL EXAMINATION: VITAL SIGNS: Temperature 97.7, pulse 70, respiratory rate 18, BP 136/98, pulse ox 97%. HEENT: Head normocephalic, atraumatic. Eyes: Extraocular muscles are intact. Pupils are equal, round and reactive to light and accommodation. Ears: No lesions. Nose appeared normal. Throat: No exudate or erythema. NECK: Supple. No JVD, no carotid bruit. No lymphadenopathy or thyromegaly. LUNGS: Decreased breath sounds but clear to auscultation. Percussion note normal. Chest symmetrical. HEART: S1, S2, no S3. No murmurs. No cyanosis or clubbing. No ascites. Pulses: Dorsalis pedis and posterior tibial pulses +1 to +2 bilaterally. ABDOMEN: Soft. Nontender. Bowel sounds active. No CVA tenderness. No mass felt. EXTREMITIES: No edema. Full range of motion of all extremities, equal. NEUROLOGIC: No focal deficit. Cranial nerves II through XII are grossly intact. No headache, no double vision or headache. SKIN: Not dry. Intact. Turgor - normal. LYMPHATIC: No palpable lymph nodes/no lymphedema. MUSCULOSKELETAL: Normal joints with no swelling. Muscle tone is normal. LABS: Hemoglobin 10.4, hematocrit 33. WBC 7,100. Normal differential. Creatinine 1, BUN 30, potassium 4.8. ASSESSMENT: 1. Hypertension seems to be under control. 2. Hypoxemia seems to have resolved. PLAN: 1. Medications and new medications discussed. 2. The patient is morbidly obese. Strongly advised to lose weight, advised to cut down on salt intake. She is noncompliant of her lifestyle and medications. CONDITION: Stable. TIME SPENT: More than 30 minutes. Plan and coordination of the patient's care discussed in the presence of nurse. LINDA
--- NOTE | 2020-03-28 14:00 | PN ---
DATE OF SERVICE: 03/17/20 - DISCHARGE NOTE SUBJECTIVE: The patient was seen and examined with the nurse practitioner. The patient's condition is stable. She is up and about, no headaches. Sinusitis and bronchitis has subsided. Blood pressure is under control. Medication changes discussed, Coreg to be taken 6.25 twice a day. TIME SPENT: More than 30 minutes. Plan and coordination of the patient's care discussed in the presence of nurse. LINDA
--- NOTE | 2020-04-20 14:04 | PN ---
DATE OF SERVICE: 03/14/2020 SUBJECTIVE: The patient is up and about doing well. No leg swelling. No symptoms of CHF. She is breathing a lot better. Lungs are clear. All the medications explained to the patient. The patient is morbidly obese. She is advised to lose weight. She refuses the referral to the bariatric center. She was advised to cut down on salt intake. Elevate the legs at night. All the medication changes explained. Lasix to be taken every day along with Potassium. TIME SPENT: More than 30 minutes. Plan and coordination of the patient's care discussed in the presence of nurse. LINDA
== END 2020-03-17 13:50 | disposition home or self-care (01) | DRG 951 ==
LOC: ED 11:41 → SCU 14:06 → MEDSURG B 03-15 15:10
PROVIDERS: ADMIT Internal Medicine; ATTEND Internal Medicine
DX: F41.1 Generalized anxiety disorder; E78.5 Hyperlipidemia, unspecified; Z51.81 Encounter for therapeutic drug level monitoring; E11.9 Type 2 diabetes mellitus without complications; Z79.899 Other long term (current) drug therapy; I10 Essential (primary) hypertension; Z91.14 Patient's other noncompliance with medication regimen; M71.22 Synovial cyst of popliteal space [Baker], left knee; Z03.818 Encounter for observation for suspected exposure to other biological agents ruled out; R06.02 Shortness of breath; J44.1 Chronic obstructive pulmonary disease with (acute) exacerbation; Z85.42 Personal history of malignant neoplasm of other parts of uterus; Z94.1 Heart transplant status; A63.0 Anogenital (venereal) warts; M16.0 Bilateral primary osteoarthritis of hip; R53.83 Other fatigue; G62.9 Polyneuropathy, unspecified; Z87.440 Personal history of urinary (tract) infections; J44.0 Chronic obstructive pulmonary disease with (acute) lower respiratory infection; R06.03 Acute respiratory distress; R60.0 Localized edema; R09.02 Hypoxemia; Z99.89 Dependence on other enabling machines and devices; E66.01 Morbid (severe) obesity due to excess calories; J20.9 Acute bronchitis, unspecified; K21.9 Gastro-esophageal reflux disease without esophagitis; G47.33 Obstructive sleep apnea (adult) (pediatric); M54.32 Sciatica, left side; D64.9 Anemia, unspecified; J01.90 Acute sinusitis, unspecified

== ENCOUNTER 2020-03-28 07:38 | Inpatient (IN) ==
--- NOTE | 2020-03-28 08:12 | ED.PDOC ---
General ED Provider: Dr. ANTOINE UNDERWOOD Chief Complaint: Shortness of Air Stated Complaint: Shortness of breath, intermittently worsening over past several days with mild chest tightness. Non productive cough last few days. States she uses cpap with oxygen at night History of heart transplant several years ago. No heart problems since. Denies fever or chills. States she feels "stuffed " in her abdomen and notices worsening SOB when leaning forward or bending forward. Feels very anxious.Was hospitalized 3 weeks ago for sinusitis by Dr Chiu here at [place] and feels like she had not fully recovered since then. Time Seen by Physician: 07:50 Mode of Arrival: Wheelchair Information Source: Patient Exam Limitations: No limitations Primary Care Provider: ALETHA CHIU Nursing and Triage Documentation Reviewed and Agree: Yes Does patient meet sepsis criteria?: No System Inflammatory Response Syndrome: Not Applicable Sepsis Protocol: For patient's 13 years and over: Temp is 96.8 and below OR 101 and greater Pulse >90 BPM Resp >20/minute Acutely Altered Mental Status Are patient's symptoms suggestive of a new infection, such as: -Pneumonia -Skin, Soft Tissue -Endocarditis -UTI -Bone, Joint Infection -Implantable Device -Acute Abdominal Infection -Wound Infection -Meningitis -Blood Stream Catheter Infection -Unknown Respiratory Complaint Exam Shortness of Air Complaint/Exam Onset/Duration: 2 DAYS Symptoms Are: Still present Timing: Intermittent Initial Severity: Moderate Current Severity: Mild Character: Reports Dyspnea at rest and Dyspnea on exertion Aggravating: Reports None (Bending forward) and Movement Alleviating: Reports Bronchodilators and Upright position Associated Signs and Symptoms: Denies Cough, Wheezing, Chest pain with cough, Chest pain, Fever, Chills, Diaphoresis, Nasal congestion, Dizziness, Calf pain, Calf swelling, Edema, Rapid breathing, Labored breathing and Decreased intake Related History: Reports Similar episode History of Healthcare-Acquired Pneumonia: No Pulmonary Embolism Risk Factors: Reports None Cardiac Risk Factors: Reports None Pseudomonas Risk Factors: Reports None Tuberculosis Risk Factors: Reports None Home Oxygen Use: No Recent Stress Test: No Recent Echo/LV Function: No Respiratory Distress: None Stridor Present: No Tracheal Deviation: No Subcutaneous Emphysema: No Accessory Muscle Use: No Retractions: Not Present Diminished Breath Sounds: Yes (Bibasilar) Prolonged Expiratory Phase: No Unable to Speak Full Sentences: No Fatigue: Yes Leg Swelling: No Vinay's Sign Present: No Grunting Respirations: No Kussmaul Respirations: No Differential Diagnoses: CHF and Bronchospasm Quality Indicators for AMI: EKG in 10min. Related Surgical History: Reports None (heart transplant) Review of Systems Review Of Systems Constitutional: Reports No symptoms Eyes: Reports No symptoms Ears, Nose, Mouth, Throat: Reports No symptoms Respiratory: Reports No symptoms Cardiac: Reports No symptoms GI: Reports No symptoms : Reports No symptoms Musculoskeletal: Reports No symptoms Skin: Reports No symptoms Neurological: Reports No symptoms Endocrine: Reports No symptoms Hematologic/Lymphatic: Reports No symptoms All Other Systems: Reviewed and Negative [facility] Medical History (Updated 03/28/20 @ 11:36 by ZEINAB AMBROCIO RN) Anemia Heart failure Hypertension Family History Mother Cancer, Onset Age: 40 FATHER Diabetes Social History Smoking and tobacco status: Never smoker Substance use type: does not use Female Reproductive History Menstrual Hx Hysterectomy: Yes Hx Tubal Ligation: No Physical Exam Physical Exam Appearance: Reports Well-appearing and Obese Ill-appearing: None Pain Distress: None Eyes: Reports ANYI, EOMI and Conjunctiva clear ENT: Reports Ears normal, Nose normal and Oropharynx normal Neck: Supple Respiratory: Reports Airway patent, Breath sounds clear, Breath sounds equal, Breath sounds diminished (bibasilar) and Respirations nonlabored Cardiovascular: Reports RRR, Pulses normal, No rub and No murmur GI/: Reports Soft, Nontender, No masses, Bowel sounds normal and No Organomegaly Musculoskeletal: Reports Normal strength, ROM intact, No edema and No calf tenderness Skin: Reports Warm, Dry and Normal color Neurological: Reports Sensation intact, Motor intact, Reflexes intact, Cranial nerves intact, Alert and Oriented Psychiatric: Reports Affect appropriate and Mood appropriate Interpretation Radiology Interpretation Exam Interpreted: CXR Xray Comments: Mild pulm vascular congestion Police Lieutenant Time of Police Lieutenant Interpretation: 07:50 Rate: Normal Rhythm: Sinus Ectopy: None EKG Interpretation Time of EKG #1: 08:00 Rate: Normal Rhythm: Sinus Ectopy: None Guild: NL ST Segment: Normal Interpretation: NSR Physician Notification Case Discussed Physician Notified: Dr Chiu: Accepts for admisson Time of Notification: 10:15 Physician Notified: El Dispersion Mixer RN-Provided information/ Time of Notification: 10:45 Critical Care Note Critical Care Note Total Time (mins): 60 Course Course Hematology/Chemistry: 03/28/20 08:38 03/28/20 08:38 Orders, Labs, Meds: Lab Review 03/28/20 03/28/20 03/28/20 08:38 08:38 08:38 WBC 4.31 L RBC 3.71 L Hgb 10.7 L Hct 34.7 L MCV 93.5 MCH 28.8 MCHC 30.8 L RDW Coeff of Gabriela 14.2 Plt Count 109 L Immature Gran % (Auto) 0.9 Neut % (Auto) 63.3 Lymph % (Auto) 25.8 [place] % (Auto) 7.0 Eos % (Auto) 2.1 Baso % (Auto) 0.9 Neut # (Auto) 2.7 Lymph # (Auto) 1.1 [place] # (Auto) 0.3 L Eos # (Auto) 0.1 Baso # (Auto) 0.0 Immature Gran # (Auto) 0.0 Sodium 138.4 Potassium 4.23 Chloride 98.9 Carbon Dioxide 36.2 H Anion Gap 7.53 BUN 21.1 H Creatinine 1.02 Estimated GFR (MDRD) 69.00 BUN/Creatinine Ratio 20.68 Glucose 103.4 Calcium 9.37 Total Bilirubin 0.66 AST 18.2 ALT 16.8 Alkaline Phosphatase 56.0 Troponin I < 0.012 NT-Pro-B Natriuret Pep Total Protein 6.94 Albumin 4.21 Globulin 2.73 Albumin/Globulin Ratio 1.54 Urine Color Urine Clarity Urine pH Ur Specific [place] Urine Protein Urine Glucose (UA) Urine Ketones Urine Blood Urine Nitrite Urine Bilirubin Urine Urobilinogen Ur Leukocyte Esterase Urine Microscopic WBC Ur Squamous Epith Cells 03/28/20 03/28/20 08:38 08:56 WBC RBC Hgb Hct MCV MCH MCHC RDW Coeff of Gabriela Plt Count Immature Gran % (Auto) Neut % (Auto) Lymph % (Auto) [place] % (Auto) Eos % (Auto) Baso % (Auto) Neut # (Auto) Lymph # (Auto) [place] # (Auto) Eos # (Auto) Baso # (Auto) Immature Gran # (Auto) Sodium Potassium Chloride Carbon Dioxide Anion Gap BUN Creatinine Estimated GFR (MDRD) BUN/Creatinine Ratio Glucose Calcium Total Bilirubin AST ALT Alkaline Phosphatase Troponin I NT-Pro-B Natriuret Pep 1040.000 H Total Protein Albumin Globulin Albumin/Globulin Ratio Urine Color Yellow Urine Clarity Clear Urine pH 6.0 Ur Specific [place] 1.025 Urine Protein Negative Urine Glucose (UA) Negative Urine Ketones Negative Urine Blood Negative Urine Nitrite Negative Urine Bilirubin Negative Urine Urobilinogen 0.2 Ur Leukocyte Esterase Trace H Urine Microscopic WBC 0-2 Ur Squamous Epith Cells Not present Orders Category Date Time Status EKG-(ED ONLY) Stat CARDIO 03/28/20 08:12 Completed EKG-(IP & OP ONLY) Routine CARDIO 03/29/20 06:00 Ordered OXYGEN Routine CARDIO 03/28/20 10:22 Active ACTIVITY .BR with BRP CARE 03/28/20 10:23 Active BLOOD GLUCOSE MONITORING 0630,1100,1700,2100 CARE 03/28/20 10:24 Active INTAKE & OUTPUT Q8HR CARE 03/28/20 10:23 Active VITAL SIGNS Q8HR CARE 03/28/20 10:23 Active 2 GRAM SODIUM DIET DIETARY 03/28/20 Lunch Ordered IV [ED IV/MEDIPORT/POWERPORT] .ONCE EMERGENCY 03/28/20 10:20 Active CBC W/ AUTO DIFF Stat LAB 03/28/20 08:38 Completed CMP [COMPREHENSIVE METABOLIC PANEL] Stat LAB 03/28/20 08:38 Completed NT-PROBNP Stat LAB 03/28/20 08:38 Completed PT WITH INR DAILY@0600 LAB 03/29/20 06:00 Ordered PT WITH INR DAILY@0600 LAB 03/30/20 06:00 Ordered TROPONIN I Q8H LAB 03/28/20 16:30 Completed TROPONIN I Q8H LAB 03/29/20 00:30 Ordered TROPONIN I Stat LAB 03/28/20 08:38 Completed UA [URINALYSIS C & S IF INDICATED] Stat LAB 03/28/20 08:56 Completed 0.9 % Sodium Chloride [Saline Flush] MEDS 03/28/20 10:20 Active 1 syr IVF PRN PRN Albuterol Inhaler(with Spacer) [Ventolin Hfa (Per Puff- MEDS 03/28/20 09:42 Discontinued with Spacer)] 2 puff IH ONCE STA Enoxaparin Sodium [Lovenox] MEDS 03/28/20 10:30 Active 40 mg SUBCUT DAILY Furosemide [Lasix] MEDS 03/28/20 17:00 Active 20 mg IVP BIDAC Furosemide [Lasix] MEDS 03/28/20 10:20 Discontinued 20 mg IVP ONCE STA RESUSCITATION STATUS Routine OTHERS 03/28/20 10:22 Ordered CHEST, 2 VIEWS PA & LAT Stat RADS 03/28/20 08:13 Completed Medications Generic Name Dose Route Start Last Admin Trade Name Jadenq PRN Reason Stop Dose Admin Albuterol Sulfate 2 puff 03/28/20 11:12 Ventolin Hfa (Per Puff-With Spacer) IH Q6H PRN shortness of breath Amlodipine Besylate 5 mg 03/28/20 21:00 Norvasc PO BEDTIME [facility] Aspirin 81 mg 03/29/20 08:30 Aspirin Chewable PO DAILYWM [facility] Azathioprine 25 mg 03/28/20 21:00 Imuran PO BEDTIME [facility] Duloxetine HCl 60 mg 03/29/20 09:00 Cymbalta PO DAILY [facility] Enoxaparin Sodium 40 mg 03/28/20 10:30 03/28/20 12:29 Lovenox SUBCUT 40 mg DAILY [facility] Administration Ferrous Sulfate 324 mg 03/28/20 21:00 Ferrous Sulfate PO BID [facility] Furosemide 20 mg 03/28/20 17:00 03/28/20 18:21 Lasix IVP 20 mg BIDAC [facility] Administration Gabapentin 300 mg 03/28/20 21:00 Neurontin PO BID [facility] Losartan Potassium 50 mg 03/28/20 21:00 Cozaar PO BID [facility] Metoprolol Tartrate 50 mg 03/28/20 21:00 Lopressor PO BID [facility] Mirabegron 25 mg 03/29/20 09:00 Myrbetriq PO DAILY [facility] Multivitamins 1 tab 03/29/20 09:00 Multivitamin Tablet PO DAILY [facility] Non-Formulary Medication 6 mg 03/28/20 21:00 Tacrolimus [Prograf] PO BID [facility] Pravastatin Sodium 40 mg 03/28/20 21:00 Pravachol PO BID [facility] Prednisone 5 mg 03/29/20 08:30 Prednisone PO DAILYWM [facility] Sodium Chloride 1 syr 03/28/20 10:20 Saline Flush IVF PRN PRN To flush IV Discontinued Medications Generic Name Dose Route Start Last Admin Trade Name Jadenq PRN Reason Stop Dose Admin Albuterol Sulfate 2 puff 03/28/20 09:42 03/28/20 09:58 Ventolin Hfa (Per Puff-With Spacer) IH 03/28/20 09:43 2 puff ONCE STA Administration Carvedilol 12.5 mg 03/28/20 17:00 Coreg PO BIDWM [facility] Furosemide 20 mg 03/28/20 10:20 03/28/20 10:54 Lasix IVP 03/28/20 10:21 20 mg ONCE STA Administration Metoprolol Tartrate 25 mg 03/28/20 21:00 Lopressor PO BID [facility] Vital Signs: Temp Pulse Resp BP Pulse Ox 03/28/20 07:39 98.0 F 72 20 161/116 H 98 Discharge Plan Discharge Patient Disposition: ADMITTED INPATIENT Discharge Problem: Dyspnea, Transplantation of heart, Hypertension, Pulmonary vascular congestion ED Provider: ANTOINE UNDERWOOD Condition: Good Discharge Date/Time: 03/28/20 11:07
[2020-03-28 08:48] LABS: HEMATOCRIT 34.7 % (37.0-47.0)
[2020-03-28] MEDS ORDERED: PROAIR HFA (SINGLE PATIENT USE) IH STA (09:23)
--- NOTE | 2020-03-28 09:28 | DI ---
EXAM: Chest two view, frontal and lateral views. HISTORY: Dyspnea. COMPARISON: 03/13/2020. FINDINGS: Sternotomy wires present. Cardiac silhouette is enlarged. Stable left diaphragmatic abby ia/elevation of the left diaphragm with adjacent band-like opacities at the left lung base. Right celine ng is clear. No pleural effusion or pneumothorax identified. Chronic vascular congestion noted. No acute osseous abnormalities seen. IMPRESSION: Stable elevation of the left diaphragm/diaphragmatic hernia with left basilar atelectasis.
[2020-03-28] MEDS ORDERED: VENTOLIN HFA (PER PUFF-WITH SPACER) IH STA ×2 (09:42)
[2020-03-28] MEDS ORDERED: LASIX IVP STA (10:20)
[2020-03-28] MEDS ORDERED: VENTOLIN HFA (PER PUFF-WITH SPACER) IH PRN (11:12)
[2020-03-28 11:31] VITALS: BMI 39.4
[2020-03-28] MEDS: LOVENOX SUBCUT SCH (12:29)
[2020-03-28] MEDS ORDERED: COREG PO SCH ×2 (17:00)
[2020-03-28] MEDS: LASIX IVP SCH (18:21)
[2020-03-28] MEDS ORDERED: NON-FORMULARY MEDICATION (Ferrous Sulfate 325 MG) PO SCH (21:00)
[2020-03-28] MEDS ORDERED: LOPRESSOR PO SCH (21:00)
[2020-03-28] MEDS ORDERED: NEURONTIN PO SCH (21:00)
[2020-03-28] MEDS: IMURAN PO SCH (21:01)
[2020-03-28] MEDS: PRAVACHOL PO SCH (21:02)
[2020-03-28] MEDS: COZAAR PO SCH (21:02)
[2020-03-28] MEDS: NEURONTIN PO SCH (21:02)
[2020-03-28] MEDS: FERROUS SULFATE PO SCH (21:02)
[2020-03-28] MEDS: LOPRESSOR PO SCH (21:03)
[2020-03-28] MEDS: NORVASC PO SCH (21:03)
[2020-03-28] MEDS: TACROLIMUS 6 MG PO SCH (21:03)
[2020-03-29 04:25] LABS: HEMATOCRIT 34.6 % (37.0-47.0)
[2020-03-29] MEDS: LASIX IVP SCH (05:53)
[2020-03-29] MEDS: CYMBALTA PO SCH (08:44)
[2020-03-29] MEDS: ASPIRIN CHEWABLE PO SCH (08:44)
[2020-03-29] MEDS: FERROUS SULFATE PO SCH ×2 (08:45→20:45)
[2020-03-29] MEDS: MYRBETRIQ PO SCH (08:45)
[2020-03-29] MEDS: NEURONTIN PO SCH ×2 (08:45→20:46)
[2020-03-29] MEDS: MULTIVITAMIN TABLET PO SCH (08:45)
[2020-03-29] MEDS: COZAAR PO SCH ×2 (08:45→20:46)
[2020-03-29] MEDS: PRAVACHOL PO SCH ×2 (08:45→20:45)
[2020-03-29] MEDS: LOPRESSOR PO SCH ×2 (08:45→20:46)
[2020-03-29] MEDS: PREDNISONE PO SCH (08:45)
[2020-03-29] MEDS: LOVENOX SUBCUT SCH (08:48)
[2020-03-29] MEDS: TACROLIMUS 6 MG PO SCH ×2 (08:59→20:47)
[2020-03-29] MEDS ORDERED: PREDNISONE PO SCH (09:00)
[2020-03-29] MEDS ORDERED: LASIX IVP STA (12:00)
[2020-03-29] MEDS ORDERED: BACTRIM DS 800/160 MG PO SCH (13:30)
[2020-03-29] MEDS: BACTRIM DS 800/160 MG PO SCH (14:19)
--- NOTE | 2020-03-29 15:00 | HP ---
DATE OF SERVICE: 03/28/20 REASON FOR HOSPITALIZATION: Shortness of air. HISTORY OF PRESENT ILLNESS: 54-year-old black female who was admitted three weeks ago with cough, congestion, sinusitis, headache. The patient had Covid negative, treated with antibiotics and sent home. The patient says that she didn't get a lot better and now she is short of breath, feels "stuffed", worsening of shortness of breath leaning forward or bending forward. She is anxious. PAST MEDICAL/SURGICAL HISTORY: History of chronic lung disease Dyslipdemia Diabetes Obstructive sleep apnea Hypertension Left sciatica Morbid obesity Osteoarthritis of the hip Dependent edema Heart transplant 2012 Hysterectomy with uterine CA 2011 REVIEW OF SYSTEMS: CONSTITUTIONAL: Fatigue. No weakness. No night sweats. No malaise, lethargy. No fever or chills. HEENT: Eyes: No visual changes. No eye pain. No eye discharge. ENT: No runny nose. No epistaxis. No sinus pain. No sore throat. No odynophagia. No ear pain. No congestion. RESPIRATORY: Mild cough. No hemoptysis. Shortness of breath on exertion. CARDIOVASCULAR: No angina symptoms. No CHF symptoms. No atypical chest pain for CAD. No symptoms of coronary insufficiency. No palpitations. No PND. No orthopnea. GASTROINTESTINAL: "Stuffed feeling in the abdomen" bending over shortness of breath. No abdominal pain. No nausea or vomiting. No diarrhea or constipation. No hematemesis. No hematochezia. GENITOURINARY: No urgency. No frequency. No dysuria. No hematuria. No obstructive symptoms. No discharge. No pain. No significant abnormal bleeding. MUSCULOSKELETAL: No musculoskeletal pain. No joint swelling. No arthritis. NEUROLOGICAL: No headache. No neck pain. No syncope. No seizures. No dizziness. PSYCHIATRIC: Anxious feeling. No depression. No suicidal thoughts. No homicidal thoughts. SKIN: No rash. No lesions. No wounds. ENDOCRINE: No unexplained weight loss. No weight gain. HEMATOLOGIC/LYMPHATIC: No anemia. No purpura. No petechiae. No prolonged or excessive bleeding. No palpable lymph nodes. PERSONAL/FAMILY/SOCIAL HISTORY: The patient is nonsmoker, no alcohol abuse. She does all activities of daily living. She lives by herself, noncompliant of medications, followup and lifestyle. The patient is morbidly obese. She does all activity of daily living. MEDICATIONS: Aspirin Gabapentin Azathioprine Cymbalta Pravastatin Ferrous Sulfate Septra DS Losartan Myrbetric Prednisone Albuterol Phenergan with Codeine Amlodipine Metoprolol Carvedilol Zyrtec Note: There was some mixup - patient is on both Coreg and Metoprolol. One of them will be discontinued. ALLERGIES: NKDA PHYSICAL EXAMINATION: GENERAL: The patient is oriented to time, place and person, not in any distress. VITAL SIGNS: Temperature 98.7, pulse 75, respiratory rate 15, BP 124/82. HEENT: Head normocephalic, atraumatic. Eyes: Extraocular muscles are intact. Pupils are equal, round and reactive to light and accommodation. Ears: No lesions. Nose appeared normal. Throat: No exudate or erythema. NECK: Supple. No JVD, no carotid bruit. No lymphadenopathy or thyromegaly. LUNGS: Decreased breath sounds with mild wheeze. Good air entry. Percussion note normal. Chest symmetrical. HEART: S1, S2, no S3 heard. No murmur. No cyanosis or clubbing. No ascites. Pulses: Dorsalis pedis and posterior tibial and radial pulses +1 bilaterally. Venous examination normal. ABDOMEN: Soft. Nontender. Bowel sounds active. No CVA tenderness. No mass felt. EXTREMITIES: Trace edema. Full range of motion of all extremities, equal. NEUROLOGIC: No focal deficit. Cranial nerves II through XII are grossly intact. No headache, no double vision or headache. SKIN: Not dry. Intact. Turgor - normal. LYMPHATIC: No palpable lymph nodes/no lymphedema. MUSCULOSKELETAL: Normal joints with no swelling. Muscle tone is normal. LABS: UA normal. Arterial blood gases show compensated respiratory acidosis with p02 of 58 pc02 54 with c02 33 with normal pH and 99% saturation. Cardiac markers negative. Pro-BNP went up to 1000 from 300 on previous hospitalization three weeks ago. Creatinine 1, BUN 21, potassium 4.2, hemoglobin 10.7, hematocrit 34, WBC 4,000. Chest x-ray - atelectasis, chronic vascular congestion. No acute findings. ASSESSMENT: 1. Shortness of breath which is multifactorial. Sedentary lifestyle mixed with morbid obesity and severe hypertension with chronic lung disease and may have early left ventricular failure. 2. SP heart transplant 2011. 3. Hypertrophic cardiomyopathy, normal LV size and markedly enlarged LA cavity 6.5 cm with normal valves. 4. Chronic lung disease. 5. Dyslipidemia. 6. Morbid obesity. 7. Diabetes mellitus. 8. SP hysterectomy with CA of uterus. 9. Generalized DJD of the spine with history of arthritis of hips. 10.Obstructive sleep apnea. PLAN: 1. The patient's case discussed with Dr. Hao Westbrook. The patient's access line was dialed , explained to the doctor that the patient's condition seems to stable with maybe borderline left ventricular failure which I plan to treat with discontinuing Coreg and increasing Metoprolol to 50 twice a day and adding daily diuretic Lasix with maybe potassium supplements. Also counseling for weight loss is going to be done. 2. IV Lasix 20. 3. Oxygen 2L/cannula/min. 4. Continue BIPAP. 5. Weight reducing diet. 6. Continue the rest of the medications with Proventil HFA, Losartan. [facility] and see how she does. According to Dr. Bui, if the patient does well she could be discharged tomorrow morning; if she doesn't do well then he would be willing to accept her and the patient will be transferred to Transplant Unit at [place]. The case discussed with the adult protective caseworker. The patient is also discussed with the patient and she is willing to stay. Diagnosis discussed. CONDITION: Stable so far. TIME SPENT: More than 70 minutes. MTDD
[2020-03-29] MEDS: NORVASC PO SCH (20:46)
[2020-03-29] MEDS: IMURAN PO SCH (20:46)
[2020-03-30 05:07] LABS: HEMATOCRIT 34.5 % (37.0-47.0)
[2020-03-30] MEDS ORDERED: LASIX IVP SCH (06:30)
--- NOTE | 2020-03-30 09:02 | PCM.PROG ---
Attending Provider: ATTENDING PROVIDER: Dr. ALETHA CHIU This patient is seen with Bere Barrow, Nurse Practitioner. DATE OF SERVICE: 03/30/20 SUBJECTIVE: This 54 year old AA/BLACK F was hospitalized 03/28/20. The patient is sitting on the side of bed resting comfortably. She was up to the shower without her oxygen for a short period and thought she tolerated this okay. She reports some improvement in her shortness of breath. Appetite is okay. She does complain of some postnasal drainage and usually takes Zyrtec daily. We will start Claritin today. We will try to wean her oxygen off. REVIEW OF SYSTEMS: CONSTITUTIONAL: Weakness. No night sweats. No fatigue, malaise, lethargy. No fever or chills. HEENT: Eyes: No visual changes. No eye pain. No eye discharge. ENT: Postnasal drainage. No epistaxis. No sinus pain. No odynophagia. No congestion. RESPIRATORY: Shortness of breath improved. No cough, no congestion. No hemoptysis. CARDIOVASCULAR: No angina symptoms. No CHF symptoms. No atypical chest pain for CAD. No palpitations. No orthopnea.. GASTROINTESTINAL: No abdominal pain. No nausea or vomiting. No diarrhea or constipation. No hematemesis. No hematochezia. GENITOURINARY: No urgency. No frequency. No dysuria. No hematuria. No obstructive symptoms. No discharge. No pain. No significant abnormal bleeding. MUSCULOSKELETAL: No musculoskeletal pain; no joint swelling. NEUROLOGICAL: Awake, alert, oriented to time, place and person. No headache. No neck pain. No syncope. No seizures. No dizziness. PSYCHIATRIC: Not anxious. No depression. No suicidal thoughts. No homicidal thoughts. SKIN: No rash. No lesions. No wounds. ENDOCRINE: No unexplained weight loss. No weight gain. HEMATOLOGIC/LYMPHATIC: No anemia. No purpura. No petechiae. No prolonged or excessive bleeding. No palpable lymph nodes. PHYSICAL EXAMINATION: GENERAL: The patient is awake, alert and oriented, lying/sitting in bed in no distress. VITAL SIGNS: Temperature 98.8 F, Pulse 62, Respiratory Rate 18, BP 117/76, Pulse Ox 96% HEENT: Head normocephalic, atraumatic. Eyes: Extraocular muscles are intact. Pupils are equal, round and reactive to light and accommodation. Ears: No lesions. Nose appeared normal. Throat: No exudate or erythema. NECK: Supple. No JVD, no carotid bruit. No lymphadenopathy or thyromegaly. LUNGS: Diminished breath sounds. Clear to auscultation. Percussion note normal. Chest symmetrical. HEART: S1, S2, no S3. No murmurs. No cyanosis or clubbing. No ascites. Pulses: Dorsalis pedis and posterior tibial pulses +1 to +2 both sides. ABDOMEN: Soft. Non-tender. Bowel sounds active. No CVA tenderness. No mass felt. EXTREMITIES: No edema. Full range of motion of all extremities, equal. NEUROLOGIC: No focal deficit. Cranial nerves II through XII are grossly intact. No headache, no double vision or headache. SKIN: Not dry. Intact. Turgor-normal. LYMPHATIC: No palpable lymph nodes/no lymphedema. MUSCULOSKELETAL: Normal joints with no swelling. Muscle tone is normal. LAB REVIEW: 03/30/20 04:57 03/30/20 04:57 03/30/20 04:57: PT 10.7, INR 1.10 03/30/20 04:57: Sodium 135.7, Potassium 4.69, Chloride 96.9 L, Carbon Dioxide 35.2 H, Anion Gap 8.29, BUN 36.8 H, Creatinine 1.26, Estimated GFR (MDRD) 54.00, BUN/Creatinine Ratio 29.20, Glucose 97.6, Calcium 9.13, Total Bilirubin 0.41, AST 20.3, ALT 15.6, Alkaline Phosphatase 56.4, Total Protein 6.69, Albumin 4.04, Globulin 2.65, Albumin/Globulin Ratio 1.52 03/30/20 04:57: WBC 5.45, RBC 3.73 L, Hgb 10.7 L, Hct 34.5 L, MCV 92.5, MCH 28.7, MCHC 31.0 L, RDW Coeff of Gabriela 14.2, Plt Count 120 L, Immature Gran % (Auto) 0.2, Neut % (Auto) 57.2, Lymph % (Auto) 32.3, Carlton % (Auto) 7.9, Eos % (Auto) 1.8, Baso % (Auto) 0.6, Neut # (Auto) 3.1, Lymph # (Auto) 1.8, Carlton # (Auto) 0.4, Eos # (Auto) 0.1, Baso # (Auto) 0.0, Immature Gran # (Auto) 0.0 03/29/20 04:20: Thyroxine (T4) 9.0 03/29/20 04:20: TSH 1.170 ASSESSMENT: Please see below. 1. CHF 2. Shortness of breath 3. Status post heart transplant due to dilated cardiomyopathy 4. Allergic rhinitis PLAN: 1. Will try to wean oxygen today. 2. Start Claritin. 3. Monitor pulse ox. Plan and coordination of the patient's care discussed in the presence of Hardboard Grinder and nurse. CONDITION: Stable SCRIBED BY: TACOS GODINEZ Boiler Out scribed while in presence of service performed by Dr. Chiu/Bere Barrow APRN on 03/30/20 ([id number])
[2020-03-30] MEDS: ASPIRIN CHEWABLE PO SCH (09:15)
[2020-03-30] MEDS: PREDNISONE PO SCH (09:15)
[2020-03-30] MEDS: TACROLIMUS 6 MG PO SCH ×2 (09:15→21:11)
[2020-03-30] MEDS: MYRBETRIQ PO SCH (09:15)
[2020-03-30] MEDS: COZAAR PO SCH ×2 (09:16→21:10)
[2020-03-30] MEDS: NEURONTIN PO SCH ×2 (09:16→21:10)
[2020-03-30] MEDS: CLARITIN PO SCH (09:16)
[2020-03-30] MEDS: MULTIVITAMIN TABLET PO SCH (09:16)
[2020-03-30] MEDS: FERROUS SULFATE PO SCH ×2 (09:16→21:11)
[2020-03-30] MEDS: CYMBALTA PO SCH (09:16)
[2020-03-30] MEDS: LOPRESSOR PO SCH ×2 (09:16→21:10)
[2020-03-30] MEDS: PRAVACHOL PO SCH ×2 (09:16→21:10)
[2020-03-30] MEDS: LOVENOX SUBCUT SCH (09:19)
--- NOTE | 2020-03-30 14:29 | PN ---
DATE OF SERVICE: 03/29/2020 SUBJECTIVE: 54 year old black female hospitalized with shortness of breath. The patient had questionable left ventricular failure with elevation of BNP which could have been from lung problem or kidney problem. The patient has some fluid retention and has been given Lasix IV. She has been better and lost some weight. On echocardiogram the patient has hypertrophic cardiomyopathy with normal ejection fraction and normal LV size. The patient has been put on high dose of beta daniele with Lasix and Potassium supplements. REVIEW OF SYSTEMS: CONSTITUTIONAL: No night sweats. No fatigue, malaise, lethargy. No fever or chills. HEENT: Eyes: No visual changes. No eye pain. No eye discharge. ENT: No runny nose. No epistaxis. No sinus pain. No sore throat. No odynophagia. No congestion. RESPIRATORY: No cough, no congestion. No hemoptysis. Mild shortness of breath. Feeling of stuffiness. CARDIOVASCULAR: No angina symptoms. No CHF symptoms. No atypical chest pain for CAD. No palpitations. No PND. No orthopnea. GASTROINTESTINAL: No abdominal pain. No nausea or vomiting. No diarrhea or constipation. No hematemesis. No hematochezia. GENITOURINARY: No urgency. No frequency. No dysuria. No hematuria. No obstructive symptoms. No discharge. No pain. No significant abnormal bleeding. MUSCULOSKELETAL: No musculoskeletal pain; no joint swelling. NEUROLOGICAL: No headache. No neck pain. No syncope. No seizures. No dizziness. PSYCHIATRIC: Not anxious. No depression. No suicidal thoughts. No homicidal thoughts. SKIN: No rash. No lesions. No wounds. ENDOCRINE: No unexplained weight loss. No weight gain. HEMATOLOGIC/LYMPHATIC: No anemia. No purpura. No petechiae. No prolonged or excessive bleeding. No palpable lymph nodes. PHYSICAL EXAMINATION: VITAL SIGNS: Temperature 98.7, pulse 64, respiratory rate 16 and blood pressure 132/87 and pulse ox 100 on room air. HEENT: Head normocephalic, atraumatic. Eyes: Extraocular muscles are intact. Pupils are equal, round and reactive to light and accommodation. Ears: No lesions. Nose appeared normal. Throat: No exudate or erythema. NECK: Supple. No JVD, no carotid bruit. No lymphadenopathy or thyromegaly. LUNGS: Clear to auscultation. Percussion note normal. Chest symmetrical. HEART: S1, S2, no S3. No murmurs. No cyanosis or clubbing. No ascites. Pulses: Dorsalis pedis and posterior tibial pulses +1 to +2 bilaterally. ABDOMEN: Soft. Protuberant. Nontender. Bowel sounds active. No CVA tenderness. No mass felt. EXTREMITIES: No edema. Full range of motion of all extremities, equal. NEUROLOGIC: No focal deficit. Cranial nerves II through XII are grossly intact. No headache, no double vision or headache. SKIN: Not dry. Intact. Turgor - normal. LYMPHATIC: No palpable lymph nodes/no lymphedema. MUSCULOSKELETAL: Normal joints with no swelling. Muscle tone is normal. LABS: Hgb 10.7, hct 34, WBC 5,300 normal differential, creatinine 1.1, BUN 27, potassium 4.4,k estimated GFR 61cc per minute. ASSESSMENT: 1. Shortness of breath multifactorial with sedentary lifestyle and morbid obesity 2. Chronic lung disease 3. Left ventricular failure PLAN: 1. Counseling for weight loss 2. Cut down on salt intake 3. DASH diet discussed 4. Continue Lasix 20mg PO QAM 5. Continue Potassium supplements with Metoprolol 50mg twice a day 6. No Coreg Medication changes discussed. CONDITION: Stable. TIME SPENT: More than 30 minutes. Plan and coordination of the patient's care discussed in the presence of nurse. LINDA
[2020-03-30] MEDS: IMURAN PO SCH (21:10)
[2020-03-30] MEDS: NORVASC PO SCH (21:10)
[2020-03-30] MEDS ORDERED: TYLENOL PO STA (22:42)
[2020-03-31 05:56] VITALS: BP 145/89; TEMP 97.7
[2020-03-31 06:57] LABS: HEMATOCRIT 35.7 % (37.0-47.0)
[2020-03-31] MEDS: TACROLIMUS 6 MG PO SCH (09:24)
[2020-03-31] MEDS: BACTRIM DS 800/160 MG PO SCH (09:25)
[2020-03-31] MEDS: MYRBETRIQ PO SCH (09:25)
[2020-03-31] MEDS: ASPIRIN CHEWABLE PO SCH (09:25)
[2020-03-31] MEDS: CLARITIN PO SCH (09:26)
[2020-03-31] MEDS: LOPRESSOR PO SCH (09:26)
[2020-03-31] MEDS: COZAAR PO SCH (09:26)
[2020-03-31] MEDS: PRAVACHOL PO SCH (09:26)
[2020-03-31] MEDS: NEURONTIN PO SCH (09:26)
[2020-03-31] MEDS: CYMBALTA PO SCH (09:26)
[2020-03-31] MEDS: PREDNISONE PO SCH (09:27)
[2020-03-31] MEDS: LOVENOX SUBCUT SCH (09:27)
[2020-03-31] MEDS: MULTIVITAMIN TABLET PO SCH (09:27)
[2020-03-31] MEDS: FERROUS SULFATE PO SCH (09:27)
--- NOTE | 2020-03-31 10:07 | ECHO2D ---
Date of Exam: 03/28/2020 Ordering Physician: DR. ALETHA CHIU Room #: 117 Reason for Echo: SOB, CHEST PAIN, HX HEART TRANSPLANT 2012, CHF M-Mode Normal Adult Results LV Dimensions Normal Adult Results AoV Opening excursions >1.6 >1.6 LVEDD-base- 3.5-5.8 4.3 Ao root dimensions 2.0-3.7 3.8 LVESD-base- 3.1-4.6 L. Atrium dimensions 1.9-3.8 6.7 Post. Wall thickness 0.8-1.1 1.5 IV septum (thickness) 0.7-1.2 1.6 Post. Wall excursion 0.72-1.3 NORMAL Septal motion 0.8 Systolic motion R. Ventricular cavity 1.5-2.0 3.0 LVEF 60% 80% Paradoxical septal wall motion NORMAL 2-D : 2-D M Mode Echocardiogram was performed using apical four chamber and left parasternal long and short axis views. Mitral, tricuspid and aortic valves appear to be normal. Contractility of the left ventricle seems to be normal, so is the cavity size. MARKEDLY ENLARGED LEFT ATRIAL CAVITY. Aortic root appears to be normal. There is no pericardial effusion. There is no thrombus noted in the left ventricle or left atrial cavity. No mitral valve prolapse noted. STIFF, HYPOKINETIC SEPTUM M-MODE: MV: NORMAL AV: NORMAL TV: NORMAL PV: CHAMBER SIZE: ENLARGED LEFT ATRIAL CAVITY WALL MOTION: STIFF HYPOKINETIC SEPTUM PERICARDIUM: NORMAL INTERPRETATION: 1. LEFT VENTRICULAR HYPERTROPHY (MODERATE TO SEVERE) 2. MARKEDLY ENLARGED LEFT ATRIAL CAVITY 3. NORMAL LEFT VENTRICULAR CONTRACTILITY-EJECTION FRACTION >70% 4. NORMAL VALVES MTDD
--- NOTE | 2020-03-31 10:45 | PCM.PROG ---
Attending Provider: ATTENDING PROVIDER: Dr. ALETHA CHIU DATE OF SERVICE: 03/31/20 - Discharge Note SUBJECTIVE: This 54 year old AA/BLACK F was hospitalized 03/28/20. The patient is lying in bed resting comfortably. No complaints other than mild cough. She states she had a little shortness of breath yesterday while in the shower but none otherwise. She states she is feeling better. REVIEW OF SYSTEMS: CONSTITUTIONAL: No night sweats. No fatigue, malaise, lethargy. No fever or chills. HEENT: Eyes: No visual changes. No eye pain. No eye discharge. ENT: No runny nose. No epistaxis. No sinus pain. No odynophagia. No congestion. RESPIRATORY: No cough, no congestion. No hemoptysis. Shortness of breath has resolved. CARDIOVASCULAR: No angina symptoms. No CHF symptoms. No atypical chest pain for CAD. No palpitations. No orthopnea.. GASTROINTESTINAL: No abdominal pain. No nausea or vomiting. No diarrhea or constipation. No hematemesis. No hematochezia. GENITOURINARY: No urgency. No frequency. No dysuria. No hematuria. No obstructive symptoms. No discharge. No pain. No significant abnormal bleeding. MUSCULOSKELETAL: No musculoskeletal pain; no joint swelling. NEUROLOGICAL: Awake, alert, oriented to time, place and person. No headache. No neck pain. No syncope. No seizures. No dizziness. PSYCHIATRIC: Not anxious. No depression. No suicidal thoughts. No homicidal thoughts. SKIN: No rash. No lesions. No wounds. ENDOCRINE: No unexplained weight loss. No weight gain. HEMATOLOGIC/LYMPHATIC: No anemia. No purpura. No petechiae. No prolonged or excessive bleeding. No palpable lymph nodes. PHYSICAL EXAMINATION: GENERAL: The patient is awake, alert and oriented, lying/sitting in bed in no distress. VITAL SIGNS: Temperature 97.7 F, Pulse 64, Respiratory Rate 18, BP 145/89, Pulse Ox 96% HEENT: Head normocephalic, atraumatic. Eyes: Extraocular muscles are intact. Pupils are equal, round and reactive to light and accommodation. Ears: No lesions. Nose appeared normal. Throat: No exudate or erythema. NECK: Supple. No JVD, no carotid bruit. No lymphadenopathy or thyromegaly. LUNGS: Decreased breath sounds. Clear to auscultation. Percussion note normal. Chest symmetrical. HEART: S1, S2, no S3. No murmurs. No cyanosis or clubbing. No ascites. Pulses: Dorsalis pedis and posterior tibial pulses +1 to +2 both sides. ABDOMEN: Soft. Non-tender. Bowel sounds active. No CVA tenderness. No mass felt. EXTREMITIES: No edema. Full range of motion of all extremities, equal. NEUROLOGIC: No focal deficit. Cranial nerves II through XII are grossly intact. No headache, no double vision or headache. SKIN: Not dry. Intact. Turgor-normal. LYMPHATIC: No palpable lymph nodes/no lymphedema. MUSCULOSKELETAL: Normal joints with no swelling. Muscle tone is normal. LAB REVIEW: 03/31/20 05:50 03/31/20 05:50 03/31/20 05:50: Sodium 136.9, Potassium 4.58, Chloride 96.4 L, Carbon Dioxide 38.1 H, Anion Gap 6.98, BUN 34.5 H, Creatinine 1.26, Estimated GFR (MDRD) 54.00, BUN/Creatinine Ratio 27.38, Glucose 92.7, Calcium 9.49, Total Bilirubin 0.46, AST 22.2, ALT 16.5, Alkaline Phosphatase 53.7, Total Protein 6.90, Albumin 4.12, Globulin 2.78, Albumin/Globulin Ratio 1.48 03/31/20 05:50: WBC 4.60, RBC 3.82 L, Hgb 10.9 L, Hct 35.7 L, MCV 93.5, MCH 28.5, MCHC 30.5 L, RDW Coeff of Gabriela 14.4, Plt Count 107 L, Immature Gran % (Auto) 0.4, Neut % (Auto) 56.5, Lymph % (Auto) 33.5, [facility] % (Auto) 7.0, Eos % (Auto) 2.2, Baso % (Auto) 0.4, Neut # (Auto) 2.6, Lymph # (Auto) 1.5, [facility] # (Auto) 0.3 L, Eos # (Auto) 0.1, Baso # (Auto) 0.0, Immature Gran # (Auto) 0.0 ASSESSMENT: Please see below. 1. CHF 2. Shortness of breath 3. Status post heart transplant due to dilated cardiomyopathy 4. Allergic rhinitis PLAN: 1. Strongly advised to join Cardiac Rehabilitation 2. The patient is advised to lose weight, cut down on salt. 3. Advised to continue all medications on regular basis, changes in medication discussed. 4. Anticipate discharge today. 5. Cooker Syrup to call heart transplant control panel operator crude unit, Sveta, for followup. 6. The patient will be seen in my office in 7 days. Plan and coordination of the patient's care discussed in the presence of Cooker Syrup and nurse. CONDITION: Stable SCRIBED BY: Candido CAVAZOSist scribed while in presence of service performed by Dr. Chiu/Bere Barrow APRN on 03/31/20 ([id number])
--- NOTE | 2020-03-31 10:47 | DS ---
DATE OF SERVICE: 03/31/20 FINAL DIAGNOSIS: 1. DYSPNEA- MULTIFACTORIAL. 2. 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 HX: 3, CHRONIC BRONCHITIS 4. CHRONIC SINUSITIS 5. HYPERTENSION 6. CHRONIC LUNG DISEASE 7. DYSLIPIDEMIA 8. DIABETES MELLITUS, TYPE 2, A1C 09/2019 - 5.78 9. NEUROPATHY 10. OBSTRUCTIVE SLEEP APNEA, CPAP AT NIGHT 11. 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 MORBID OBESITY 14, GERD 15. DENIZ 16. OA OF THE HIPS 17. FREQUENT UTI, FOLLOWED BY DR. BAZAN 18. 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 PACHECO'S CYST LT KNEE 21. BILATERAL DEPENDENT EDEMA 22. NON-COMPLIANCE OF DIET,LIFESTYLE AND RECOMMENDATIONS 23. ALLERGIC RHINITIS SURGICAL HISTORY: 24. HEART TRANSPLANT 2011 25. HYSTERECTOMY 2011, UTERINE CA LAST VITALS Temp Pulse Resp BP Pulse Ox 97.7 F 72 18 145/89 H 96 03/31/20 05:55 03/31/20 08:00 03/31/20 05:55 03/31/20 05:55 03/30/20 21:36 DISCHARGE INSTRUCTIONS: 1. DISCHARGE HOME TODAY FRIDAY, MARCH 31, 2020 2. MD FOLLOW UP: SEE DR CHIU/ KEYANNA MEANS APRN/ ENRIQUE COREY APRN IN THE OFFICE ON Friday2019 @ 115 PM - [facility] TO CALL AND MAKE A FOLLOW UP APPOINTMENT. 3. CODE STATUS: FULL CODE MEDICATIONS AT DISCHARGE: Albuterol Sulfate (Ventolin Hfa (Per Puff-With Spacer)) 2 puff IH QID PRN -- 9 CHANGED HOME MED PRN Reason: shortness of breath Amlodipine Besylate (Norvasc) 5 mg PO BEDTIME ON LICENSE OF [facility] Last Admin: 03/30/20 21:10 Dose: 5 mg Documented by: Aspirin (Aspirin Chewable) 81 mg PO DAILYWM ON LICENSE OF [facility] Last Admin: 03/31/20 09:25 Dose: 81 mg Documented by: Azathioprine (Imuran) 25 mg PO BEDTIME ON LICENSE OF [facility] Last Admin: 03/30/20 21:10 Dose: 25 mg Documented by: Duloxetine HCl (Cymbalta) 60 mg PO DAILY ON LICENSE OF [facility] Last Admin: 03/31/20 09:26 Dose: 60 mg Documented by: Ferrous Sulfate (Ferrous Sulfate) 324 mg PO BID ON LICENSE OF [facility] Last Admin: 03/31/20 09:27 Dose: 324 mg Documented by: Gabapentin (Neurontin) 300 mg PO BID ON LICENSE OF [facility] Last Admin: 03/31/20 09:26 Dose: 300 mg Documented by: Losartan Potassium (Cozaar) 50 mg PO BID ON LICENSE OF [facility] Last Admin: 03/31/20 09:26 Dose: 50 mg Documented by: Metoprolol Tartrate (Lopressor) 50 mg PO BID ON LICENSE OF [facility] Last Admin: 03/31/20 09:26 Dose: 50 mg Documented by: Mirabegron (Myrbetriq) 25 mg PO DAILY ON LICENSE OF [facility] Last Admin: 03/31/20 09:25 Dose: 25 mg Documented by: Multivitamins (Multivitamin Tablet) 1 tab PO DAILY ON LICENSE OF [facility] Last Admin: 03/31/20 09:27 Dose: 1 tab Documented by: Non-Formulary Medication (Tacrolimus [Prograf]) 6 mg PO BID ON LICENSE OF [facility] Last Admin: 03/31/20 09:24 Dose: 6 mg Documented by: Pravastatin Sodium (Pravachol) 40 mg PO BID ON LICENSE OF [facility] Last Admin: 03/31/20 09:26 Dose: 40 mg Documented by: Pred[facility] ([facility]) [facility] [place] Last Admin: 03/31/20 09:27 Dose: 5 mg Documented by: Trimethoprim/Sulfamethoxazole (Bactrim Ds 800/160 Mg) 0.5 tab PO MoWeFr@0900 ON LICENSE OF [facility] Stop: 04/01/20 13:29 Last Admin: 03/31/20 09:25 Dose: 0.5 tab Documented by: ZYRTEC 10 MG PO DAILY LASIX 20 MG PO DAILY TESSALON INDER 200 MG PO TID X 5 DAYS PRN POTASSIUM 10 MEQ PO DAILY PROMETHAZINE- CODIENE 5 - 10 ML PO EVERY 8 HOURS PRN FOR COUGH NEW PRESCRIPTIONS: LASIX 20 MG PO DAILY TESSALON INDER 200 MG PO TID X 5 DAYS PRN POTASSIUM 10 MEQ PO DAILY CHANGED METOPROLOL TO 50 MG PO BID CHANGED VENTOLIN MDI TO 2 PUFFS QID PRN DISCONTINUED MEDICATIONS: COREG 6.25 MG DIET INSTRUCTIONS: HEART HEALTHY ACTIVITY: UP TOLERATED FREQUENT REST PERIODS, NO STRENOUS ACTIVITY STAY AWAY FROM CROWDS. FOLLOW SOCIAL DISTANCING GUIDELINES WEIGH DAILY AND REPORT GAINS 2-3 LBS IN 24 HOURS OR 5-7 LBS IN A WEEK TO SMOKING: NON- APPLICABLE DISEASE SPECIFIC EDUCATION: CHF HEART HEALTHY DIET ALLERGIC RHINITIS [facility] COURSE: This 54-year-old female was hospitalized with shortness of breath. The patient's shortness of breath is multifactorial with sedentary lifestyle, morbid obesity and chronic lung disease. There was a possibility of left ventricular failure. Normal left ventricular contractility on echocardiogram, moderate left ventricular hypertrophy, markedly enlarged left atrial cavity. The patient's beta daniele increased. Lasix and potassium added. The patient's condition improved remarkably. There was no evidence of any CHF. Shortness of breath was much less. Counseling for weight loss diet done. Medication changes made. The patient is to be followed by transplant unit and by me and will see in 5 to 7 days in followup. Condition stable. TIME SPENT: More than 60 minutes. LINDA
--- NOTE | 2020-03-31 10:55 | CM.DICTOOL ---
ADMISSION: 03/28/20 10:27 DISCHARGE: MARCH 31, 2020 DATE OF SERVICE: 03/31/20 FINAL DIAGNOSIS DYSPNEA- MUTIFACTUAL STATUS POST HEART TRANSPLANT DUE TO DILATED CARDIOMYOPATHY LVF/HYPERTROPHIC CARDIOMYAPATHY HX: CHRONIC BRONCHITIS CHRONIC SINUSITIS HYPERTENSION CHRONIC LUNG DISEASE DYSLIPIDEMIA DIABETES MELLITUS, TYPE 2, A1C 09/2019 - 5.78 NEUROPATHY OBSTRUCTIVE SLEEP APNEA, CPAP AT NIGHT LEFT SCIATICA ANAL CONDYLOMA MORBID OBESITY GERD DENIZ OA OF THE HIPS FREQUENT UTI, FOLLOWED BY DR. BAZAN ANEMIA DJD SPINE PACHECO'S CYST LT KNEE BILATERAL DEPENDENT EDEMA NON-COMPLIANCE OF DIET,LIFESTYLE AND RECOMMENDATIONS ALLERGIC RHINITIS SURGICAL HISTORY: HEART TRANSPLANT 2011 HYSTERECTOMY 2011, UTERINE CA LAST VITALS Temp Pulse Resp BP Pulse Ox 97.7 F 72 18 145/89 H 96 03/31/20 05:55 03/31/20 08:00 03/31/20 05:55 03/31/20 05:55 03/30/20 21:36 TAKE THESE MEDICATIONS AT HOME Albuterol Sulfate (Ventolin Hfa (Per Puff-With Spacer)) 2 puff IH QID PRN -- 9 CHANGED HOME MED PRN Reason: shortness of breath Amlodipine Besylate (Norvasc) 5 mg PO BEDTIME [facility] Last Admin: 03/30/20 21:10 Dose: 5 mg Documented by: Aspirin (Aspirin Chewable) 81 mg PO DAILYWM [facility] Last Admin: 03/31/20 09:25 Dose: 81 mg Documented by: Azathioprine (Imuran) 25 mg PO BEDTIME [facility] Last Admin: 03/30/20 21:10 Dose: 25 mg Documented by: Duloxetine HCl (Cymbalta) 60 mg PO DAILY [facility] Last Admin: 03/31/20 09:26 Dose: 60 mg Documented by: Ferrous Sulfate (Ferrous Sulfate) 324 mg PO BID [facility] Last Admin: 03/31/20 09:27 Dose: 324 mg Documented by: Gabapentin (Neurontin) 300 mg PO BID [facility] Last Admin: 03/31/20 09:26 Dose: 300 mg Documented by: Losartan Potassium (Cozaar) 50 mg PO BID [facility] Last Admin: 03/31/20 09:26 Dose: 50 mg Documented by: Metoprolol Tartrate (Lopressor) 50 mg PO BID [facility] Last Admin: 03/31/20 09:26 Dose: 50 mg Documented by: Mirabegron (Myrbetriq) 25 mg PO DAILY [facility] Last Admin: 03/31/20 09:25 Dose: 25 mg Documented by: Multivitamins (Multivitamin Tablet) 1 tab PO DAILY [facility] Last Admin: 03/31/20 09:27 Dose: 1 tab Documented by: Non-Formulary Medication (Tacrolimus [Prograf]) 6 mg PO BID [facility] Last Admin: 03/31/20 09:24 Dose: 6 mg Documented by: Pravastatin Sodium (Pravachol) 40 mg PO BID [facility] Last Admin: 03/31/20 09:26 Dose: 40 mg Documented by: Prednisone (Prednisone) [facility] [place] Last Admin: 03/31/20 09:27 Dose: 5 mg Documented by: Trimethoprim/Sulfamethoxazole (Bactrim Ds 800/160 Mg) 0.5 tab PO MoWeFr@0900 [facility] Stop: 04/01/20 13:29 Last Admin: 03/31/20 09:25 Dose: 0.5 tab Documented by: ZYRTEC 10 MG PO DAILY LASIX 20 MG PO DAILY TESSALON INDER 200 MG PO TID X 5 DAYS PRN POTASSIUM 10 MEQ PO DAILY PROMETHIZINE- CODIENE 5 - 10 ML PO EVERY 8 HOURS PRN FOR COUGH ALLERGIES No Known Allergies Allergy (Unverified 03/28/20 07:44) DISCONTINUED MEDICATIONS COREG 6.25 MG NEW PRESCRIPTIONS: LASIX 20 MG PO DAILY TESSALON INDER 200 MG PO TID X 5 DAYS PRN POTASSIUM 10 MEQ PO DAILY CHANGED METOPROLOL TO 50 MG PO BID CHANGED VENTOLIN MDI TO 2 PUFFS QID PRN SMOKING: NON- APPLICABLE DISEASE SPECIFIC EDUCATION: CHF HEART HEALTHY DIET ALLERGIC RHINITIS [facility] REVIEW: 03/31/20 05:50 03/31/20 05:50 03/31/20 05:50: Sodium 136.9, Potassium 4.58, Chloride 96.4 L, Carbon Dioxide 38.1 H, Anion Gap 6.98, BUN 34.5 H, Creatinine 1.26, Estimated GFR (MDRD) 54.00, BUN/Creatinine Ratio 27.38, Glucose 92.7, Calcium 9.49, Total Bilirubin 0.46, AST 22.2, ALT 16.5, Alkaline Phosphatase 53.7, Total Protein 6.90, Albumin 4.12, Globulin 2.78, Albumin/Globulin Ratio 1.48 06/19/20 05:50: WBC 4.60, RBC 3.82 L, Hgb 10.9 L, Hct 35.7 L, MCV 93.5, MCH 28.5, MCHC 30.5 L, RDW Coeff of Gabriela 14.4, Plt Count 107 L, Immature Gran % (Auto) 0.4, Neut % (Auto) 56.5, Lymph % (Auto) 33.5, Owen % (Auto) 7.0, Eos % (Auto) 2.2, Baso % (Auto) 0.4, Neut # (Auto) 2.6, Lymph # (Auto) 1.5, Owen # (Auto) 0.3 L, Eos # (Auto) 0.1, Baso # (Auto) 0.0, Immature Gran # (Auto) 0.0 PLAN: DISCHARGE HOME TODAY TUESDAY, MARCH 31, 2020 ACTIVITY: UP TOLERATED FREQUENT REST PERIODS, NO STRENOUS ACTIVITY STAY AWAY FROM CROWDS. FOLLOW SOCIAL DISTANCING GUIDELINES WEIGH DAILY AND REPORT GAINS 2-3 LBS IN 24 HOURS OR 5-7 LBS IN A WEEK TO DIET: HEART HEALTHY FOLLOW UP: SEE DR CHIU/ KEYANNA MEANS APRN/ ENRIQUE COREY APRN IN THE OFFICE ON Friday2019 @ 115 PM [facility] TO CALL AND MAKE A FOLLOW UP APPOINTMENT. CODE STATUS: FULL CODE MRS PERKINS IS ALERT AND ORIENTED X 4. PLEASANT AND TALKATIVE. IS UP TOLERATED AND NO FURTHER GAIT ABNORMALITIES SHE VERBALIZED SHE EXPERIENCED AT HOME. DOES HAVE A CANE AT HOME AND USES AT TIMES. DTR IS STAYING WITH HER AT THIS TIME. AT THIS TIME NO FURTHER DYSPNEA WITH ACTIVITY OR EXERTIONAL. GOOD FLUID AND NUTRITIONAL INTAKE. A COPY OF HEART HEALTHY DIET INSTRUCTIONS WAS PROVIDED.CONTINENT OF BOWEL AND BLADDER. LAST BM 03/30/2020. USES A C-PAP AT NIGHT WITH 2 L/M N/C OXYGEN. MIROSLAVA FROM [facility] REPORTED SHE WOULD HAVE THEIR HEEL ATTACHER [employer]OD CALL HER FOR A FOLLOW UP APPOINTMENT WITH THE [facility]PLANT [facility]. MD KEYANNA STAHL,NIDIA COREY APRN
--- NOTE | 2020-03-31 11:06 | PN ---
BILLING 03/28/20 ADMISSION DAY LEVEL 5 03/29/20 INTERMEDIATE 03/30/20 INTERMEDIATE 03/31/20 DISCHARGE MTDD
--- NOTE | 2020-04-03 09:32 | PN ---
DATE OF SERVICE: 03/30/2020 SUBJECTIVE: The patient was seen and examined with the Nurse Practitioner. The patient's condition has improved. REVIEW OF SYSTEMS: CONSTITUTIONAL: No night sweats. No fatigue, malaise, lethargy. No fever or chills. HEENT: Eyes: No visual changes. No eye pain. No eye discharge. ENT: No runny nose. No epistaxis. No sinus pain. No sore throat. No odynophagia. No congestion. RESPIRATORY: No cough, no congestion. No hemoptysis. No shortness of breath. CARDIOVASCULAR: No angina symptoms. No CHF symptoms. No atypical chest pain for CAD. No palpitations. No PND. No orthopnea. GASTROINTESTINAL: No abdominal pain. No nausea or vomiting. No diarrhea or constipation. No hematemesis. No hematochezia. GENITOURINARY: No urgency. No frequency. No dysuria. No hematuria. No obstructive symptoms. No discharge. No pain. No significant abnormal bleeding. MUSCULOSKELETAL: No musculoskeletal pain; no joint swelling. NEUROLOGICAL: No headache. No neck pain. No syncope. No seizures. No dizziness. PSYCHIATRIC: Not anxious. No depression. No suicidal thoughts. No homicidal thoughts. SKIN: No rash. No lesions. No wounds. ENDOCRINE: No unexplained weight loss. No weight gain. HEMATOLOGIC/LYMPHATIC: No anemia. No purpura. No petechiae. No prolonged or excessive bleeding. No palpable lymph nodes. PHYSICAL EXAMINATION: HEENT: Head normocephalic, atraumatic. Eyes: Extraocular muscles are intact. Pupils are equal, round and reactive to light and accommodation. Ears: No lesions. Nose appeared normal. Throat: No exudate or erythema. NECK: Supple. No JVD, no carotid bruit. No lymphadenopathy or thyromegaly. LUNGS: Clear to auscultation. Percussion note normal. Chest symmetrical. HEART: S1, S2, no S3. No murmurs. No cyanosis or clubbing. No ascites. Pulses: Dorsalis pedis and posterior tibial pulses +1 to +2 bilaterally. ABDOMEN: Soft. Nontender. Bowel sounds active. No CVA tenderness. No mass felt. EXTREMITIES: No edema. Full range of motion of all extremities, equal. NEUROLOGIC: No focal deficit. Cranial nerves II through XII are grossly intact. No headache, no double vision or headache. SKIN: Not dry. Intact. Turgor - normal. LYMPHATIC: No palpable lymph nodes/no lymphedema. MUSCULOSKELETAL: Normal joints with no swelling. Muscle tone is normal. ASSESSMENT: 1. CHF/LVF seems to be under control. PLAN: 1. The patient is tolerating Metoprolol very well with Lasix and Potassium 2. Strongly advised to lose weight, cut down on salt intake 3. Wear the oxygen at night. 4. We will evaluate her for need for the home oxygen TIME SPENT: More than 30 minutes. Plan and coordination of the patient's care discussed in the presence of nurse. LINDA
== END 2020-03-31 12:40 | disposition home or self-care (01) | DRG 292 ==
LOC: ED 07:38 → MEDSURG B 10:27
PROVIDERS: ADMIT Internal Medicine; ATTEND Internal Medicine

== ENCOUNTER 2022-10-16 19:09 | Inpatient (IN) ==
--- NOTE | 2022-10-16 19:24 | ED.PDOC ---
General ED Provider: Dr. ANA DE MD Chief Complaint: Weakness Stated Complaint: Generalized Weakness Time Seen by Provider: 10/16/22 19:18 Mode of Arrival: Ambulance Information Source: Patient, EMT and Nurse Exam Limitations: No limitations Primary Care Provider: ALETHA ZIMMERMAN MD Nursing and Triage Documentation Reviewed and Agree: Yes Does patient meet sepsis criteria?: No System Inflammatory Response Syndrome: Not Applicable Sepsis Protocol: For patient's 13 years and over: Temp is 96.8 and below OR 101 and greater Pulse >90 BPM Resp >20/minute Acutely Altered Mental Status Are patient's symptoms suggestive of a new infection, such as: -Pneumonia -Skin, Soft Tissue -Endocarditis -UTI -Bone, Joint Infection -Implantable Device -Acute Abdominal Infection -Wound Infection -Meningitis -Blood Stream Catheter Infection -Unknown Miscellaneous Complaint Exam Complex/Multi-System Complaint/Exam Onset/Duration: ~1 week Symptoms Are: Still present Initial Severity: Moderate Current Severity: Moderate Character: generalized weakness Aggravating: none Alleviating: none Associated Signs and Symptoms: Reports Weakness (falls), Short of air, Cough and Wheezing Respiratory Distress: None JVD Present: Yes Tachypnea Present: No Stridor Present: No Glascow Coma Scale (see protocol): 15 Focal Weakness: Present None Focal Sensory Loss: Present None Gait: Unable Differential Diagnosis: Metabolic Abnormality, Sepsis, UTI and Other (general decomissioning) Review of Systems Review Of Systems Constitutional: Reports Malaise and Weakness (generalized); Denies Chills, Diaphoresis, Fever or Sweats Respiratory: Reports Cough and Short of air Neurological: Reports Other (limited ambulation, difficult to walk a short distance) All Other Systems: Reviewed and Negative [facility] Medical History Anemia Heart failure Hypertension Obstructive sleep apnea syndrome in adult Family History Mother Cancer, Onset Age: 40 FATHER Diabetes Social History Smoking and tobacco status: Never smoker Substance use type: does not use Surgical History Status post heart transplantation Status post hysterectomy Additional Medical History: Patient is s/p heart transplant ~9 years ago, so she generally gets her care at [facility]. She got CoVid and was admitted there for ~1 week; she was di scharged yesterday. She denies significant SOB, saying, 'it's no worse than yesterday'. She is, however, profoundly weak. She lives alone and is unable to take care of her ADLs. She arrived wearing the hospital gown in which she was discharged yesterday, coated with both fresh and old feces. When I went into the room for a physical exam, she was profoundly weak, unable to hold her head up against gravity. There was no focal weakness noted. Female Reproductive History Menstrual Hx Hysterectomy: Yes Hx Tubal Ligation: No Physical Exam Physical Exam Appearance: Reports Ill-appearing and Obese Ill-appearing: Moderate Pain Distress: None Eyes: Reports ANYI, EOMI and Conjunctiva clear ENT: Reports Nose normal Neck: Nonsupple (age-appropriate) Respiratory: Reports Airway patent, Breath sounds clear, Breath sounds equal, Breath sounds diminished (severe) and Wheezes (VJ) Cardiovascular: Reports RRR GI/: Reports Soft, Nontender and Bowel sounds normal Musculoskeletal: Reports Limited strength Skin: Reports Warm, Dry and Normal color Neurological: Reports Sensation intact, Motor intact, Cranial nerves intact, Alert and Oriented Psychiatric: Reports Affect appropriate and Mood appropriate Interpretation EKG Interpretation Time of EKG #1: 19:57 Rate: Normal (84) Rhythm: Sinus Ectopy: None [place]: [place] ST Segment: Normal Interpretation: baseline wander in several leads, Inferior Q-waves Critical Care Note Critical Care Note Total Critical Care Time (mins): 0 Course Course Hematology/Chemistry: 10/17/22 05:09 10/17/22 05:09 Orders, Labs, Meds: Lab Review 10/16/22 10/16/22 10/16/22 19:55 19:55 22:00 WBC 13.41 H RBC 3.58 L Hgb 9.1 L Hct 31.8 L MCV 88.8 MCH 25.4 L MCHC 28.6 L RDW Coeff of Gabriela 16.5 H Plt Count 155 Immature Gran % (Auto) 1.2 Neut % (Auto) 84.1 H Lymph % (Auto) 7.2 L Fajardo % (Auto) 5.5 Eos % (Auto) 1.6 Baso % (Auto) 0.4 Neut # (Auto) 11.3 H Lymph # (Auto) 1.0 Fajardo # (Auto) 0.7 Eos # (Auto) 0.2 Baso # (Auto) 0.1 Immature Gran # (Auto) 0.2 Sodium 144.3 Potassium 4.64 Chloride 102.9 Carbon Dioxide 35.8 H Anion Gap 10.24 BUN 43.2 H Creatinine 1.79 H Estimated GFR (MDRD) 36.00 BUN/Creatinine Ratio 24.13 Glucose 132.3 H Calcium 8.91 Magnesium 1.62 Total Bilirubin 0.55 AST 27.8 ALT 16.1 Alkaline Phosphatase 80.6 Total Creatine Kinase 308.6 H CK-MB (CK-2) 2.300 CK-MB (CK-2) % 0.7400 Troponin I < 0.012 NT-Pro-B Natriuret Pep 9200.000 H Total Protein 7.14 Albumin 4.06 Globulin 3.08 Albumin/Globulin Ratio 1.31 TSH 0.133 L Influ A Molecular Assay Negative by naat Influ B Molecular Assay Negative by naat RSV Antigen Negative by naat Orders Category Date Time Status ADMIT PATIENT INPATIENT .[facility]) ADMISSION 10/17/22 00:33 Active EKG-(ED ONLY) Stat CARDIO 10/16/22 19:38 Completed METERED DOSE INHALATION Routine CARDIO 10/17/22 00:39 Active OXYGEN Routine CARDIO 10/17/22 00:35 Active INTAKE & OUTPUT Q8HR CARE 10/17/22 00:34 Active IP: INSERT SALINE LOCK ONCE CARE 10/17/22 00:34 Active TELEMETRY MONITORING TELE CARE 10/17/22 00:33 Active VITAL SIGNS Q8HR CARE 10/17/22 00:34 Completed CARDIAC DIET DIETARY 10/17/22 Breakfast Ordered Saline Lock [ED IV/MEDIPORT/POWERPORT] .ONCE EMERGENCY 10/16/22 21:38 Active BASIC METABOLIC PANEL DAILY@0600 LAB 10/17/22 05:09 Completed BASIC METABOLIC PANEL DAILY@0600 LAB 10/18/22 06:00 Ordered BNP [NT-PROBNP] DAILY LAB 10/18/22 06:00 Ordered CBC W/ AUTO DIFF DAILY@0600 LAB 10/17/22 05:09 Completed CBC W/ AUTO DIFF DAILY@0600 LAB 10/18/22 06:00 Ordered CBC W/ AUTO DIFF Stat LAB 10/16/22 19:55 Completed CK [CREATINE KINASE] Stat LAB 10/16/22 19:55 Completed CMP [COMPREHENSIVE METABOLIC PANEL] Stat LAB 10/16/22 19:55 Completed FLU A & B MOLECULAR [FLU A/B MOLECULAR] Stat LAB 10/16/22 22:00 Completed MAGNESIUM Stat LAB 10/16/22 19:55 Completed MOLECULAR GROUP A STREP Stat LAB 10/16/22 22:00 Completed NT-PROBNP Stat LAB 10/16/22 19:55 Completed RBC MORPHOLOGY Routine LAB 10/17/22 05:09 Completed RSV Stat LAB 10/16/22 22:00 Completed TROPONIN I Stat LAB 10/16/22 19:55 Completed TSH [THYROID STIMULATING HORMONE] Stat LAB 10/16/22 19:55 Completed 0.9 % Sodium Chloride [Saline Flush] MEDS 10/16/22 21:38 Active 1 syr IVF PRN PRN Albuterol Inhaler(with Spacer) [Ventolin Hfa (Per Puff- MEDS 10/17/22 00:39 Active with Spacer)] 2 puff IH QID PRN Aspirin [Aspirin Chewable] MEDS 10/17/22 09:00 Active 81 mg PO DAILY Carvedilol [Coreg] MEDS 10/17/22 09:00 Discontinued 25 mg PO BID Duloxetine HCl [Cymbalta] MEDS 10/17/22 09:00 Active 60 mg PO DAILY Enoxaparin Sodium [Lovenox] MEDS 10/17/22 09:00 Active 40 mg SUBCUT DAILY Ferrous Sulfate MEDS 10/17/22 09:00 Active 324 mg PO BID Furosemide [Lasix Tab] MEDS 10/17/22 00:39 Active 40 mg PO DAILY PRN Furosemide [Lasix] MEDS 10/17/22 00:01 Discontinued 20 mg IVP ONCE ONE Gabapentin [Neurontin] MEDS 10/17/22 09:00 Active 300 mg PO BID Hydralazine HCl [Apresoline] MEDS 10/17/22 09:00 Discontinued 25 mg PO BID Lidocaine HCl/Pf [Lidocaine HCl 1% Sdv] MEDS 10/16/22 23:10 Discontinued 5 ml SUBCUT ONCE ONE Loratadine [Claritin] MEDS 10/17/22 09:00 Active 10 mg PO DAILY Mirabegron [Myrbetriq] MEDS 10/17/22 09:00 Active 25 mg PO DAILY Multivitamin [Multivitamin Tablet] MEDS 10/17/22 09:00 Active 1 tab PO DAILY Pantoprazole Sodium [Protonix] MEDS 10/17/22 09:00 Active 40 mg PO DAILY Prednisone MEDS 10/17/22 09:00 Active 5 mg PO DAILY Rosuvastatin Calcium [Crestor] MEDS 10/17/22 21:00 Active 10 mg PO BEDTIME Sodium Chloride 0.9% [Sodium Chloride] 500 ml MEDS 10/16/22 21:38 Discontinued IV 75 mls/hr everolimus (immunosuppressive) [Zortress] MEDS 10/17/22 00:45 Pending 1 mg PO Q12H tacrolimus [Prograf] MEDS 10/17/22 09:00 Pending 3 mg PO BID RESUSCITATION STATUS Routine OTHERS 10/17/22 00:33 Ordered CHEST, 1V AP ONLY Stat RADS 10/16/22 19:38 Completed PT INPATIENT EVALUATION Routine THERAPIES 10/17/22 Ordered Medications Generic Name Dose Route Start Last Admin Trade Name Freq PRN Reason Stop Dose Admin Albuterol Sulfate 2 puff 10/17/22 00:39 Albuterol Sulfate (Ventolin Hfa) 18 Gm 1 Puff With Spacer IH QID PRN Wheezing Aspirin 81 mg 10/17/22 09:00 Aspirin 81 Mg Tab.Chew PO DAILY [facility] Carvedilol 25 mg 10/17/22 03:30 10/17/22 03:40 Carvedilol 12.5 Mg Tablet PO 25 mg BIDWM CHRISTO Administration Duloxetine HCl 60 mg 10/17/22 09:00 Duloxetine Hcl 30 Mg Capsule.Dr PO DAILY [facility] Enoxaparin Sodium 40 mg 10/17/22 09:00 Enoxaparin Sodium 40 Mg/0.4 Ml Syr SUBCUT DAILY [facility] Ferrous Sulfate 324 mg 10/17/22 09:00 Ferrous Sulfate 324 Mg Tablet.Dr PO BID [facility] Furosemide 40 mg 10/17/22 00:39 Furosemide 20 Mg Tablet PO DAILY PRN Swelling Gabapentin 300 mg 10/17/22 09:00 Gabapentin 300 Mg Capsule PO BID [facility] Hydralazine HCl 25 mg 10/17/22 03:30 10/17/22 03:40 Hydralazine Hcl 50 Mg Tablet PO 25 mg BID CHRISTO Administration Loratadine 10 mg 10/17/22 09:00 Loratadine 10 Mg Tablet PO DAILY [facility] Mirabegron 25 mg 10/17/22 09:00 Mirabegron 25 Mg Tab.Er.24h PO DAILY [facility] Multivitamins 1 tab 10/17/22 09:00 Multivitamin 1 Tab PO DAILY [facility] Non-Formulary Medication 1 mg 10/17/22 00:45 Everolimus (Immunosuppressive) [Zortress] PO Q12H [facility] Non-Formulary Medication 3 mg 10/17/22 09:00 Tacrolimus [Prograf] PO BID [facility] Pantoprazole Sodium 40 mg 10/17/22 09:00 Pantoprazole Sodium 40 Mg Tablet.Dr PO DAILY [facility] Prednisone 5 mg 10/17/22 09:00 Prednisone 5 Mg Tablet PO DAILY [facility] Rosuvastatin Calcium 10 mg 10/17/22 21:00 Rosuvastatin Calcium 10 Mg Tablet PO BEDTIME [facility] Sodium Chloride 1 syr 10/16/22 21:38 0.9% Sodium Chloride 10 Ml Disp.Syrin IVF PRN PRN To flush IV Discontinued Medications Generic Name Dose Route Start Last Admin Trade Name Freq PRN Reason Stop Dose Admin Carvedilol 25 mg 10/17/22 09:00 Carvedilol 12.5 Mg Tablet PO BID [facility] Furosemide 20 mg 10/17/22 00:01 10/17/22 00:17 Furosemide Inj 20 Mg/2 Ml Vial IVP 10/17/22 00:02 20 mg ONCE ONE Administration Hydralazine HCl 25 mg 10/17/22 09:00 Hydralazine Hcl 50 Mg Tablet PO BID [facility] Sodium Chloride 500 mls @ 75 mls/hr 10/16/22 21:38 10/16/22 23:35 Sodium Chloride IV 10/17/22 04:17 75 mls/hr .Q6H40M STA Administration Lidocaine HCl 5 ml 10/16/22 23:10 Lidocaine Hcl/Pf 1% 5 Ml Vial SUBCUT 10/16/22 23:11 ONCE ONE Patient presented per EMS with profound generalized weakness. She is s/p heart transplant (~9 years remote). She was discharged from [facility] yesterday, and presented wearing the hospital gown in which she was discharged, coated with old and fresh feces. Labs posted, significant primarily for an elevated BNP (9200). Her BUN/Creatinine was 43.2/1.79, ratio 24.13. She was given NS TKO and IV Lasix. It was necessary to call in the FUEL OIL CLERK to get a line, as the Nurses and core worker were unable. She clearly needs admission and con ditioning with PT. We called [facility] and I tried to get with the Transplant Team for transfer. I ended up going through the Transfer Center and they connected me with Dr Rivera, who I believe was the CCU on-call. He accepted for Dr Sunday Salazar, but there were no beds. The Transfer Center said it could be up to 2 days. Knowing how the Transplant Teams are, I doubt they'll let her stay here that long. Regardless, since they said that, I had to admit her to the floor. I was told they don't house people in the ED for extended periods. Since her PCP here is Dr Zimmerman, I called him. He said to admit her to the Hospitalist. This was done. She was in stable condition when transported from the ED to the medical floor. Vital Signs: Temp Pulse Resp BP Pulse Ox 10/17/22 01:08 98.8 F 77 16 151/92 H 98 10/16/22 20:39 89 19 156/97 H 96 10/16/22 19:10 97.0 F L 90 18 156/97 H 95 Discharge Plan Discharge Patient Disposition: ADMITTED INPATIENT Discharge Problem: Weakness, COVID, CHF (congestive heart failure), Heart transplant recipient Did you review [place] [employer] for ALL controlled substances?: Not Applicable ED Provider: ANA DE Condition: Stable Physician Progress Note: []
[2022-10-16 20:06] LABS: BASOPHILS # (AUTO) 0.1 K/uL (0-0.2); BASOPHILS % (AUTO) 0.4 % (0.0-3.0); EOSINOPHILS # (AUTO) 0.2 K/ul (0.0-0.7); EOSINOPHILS % (AUTO) 1.6 % (0.0-7.0); HEMATOCRIT 31.8 % (37.0-47.0); HEMOGLOBIN 9.1 g/dl (12.0-16.0); IMMATURE GRANULOCYTE # (AUTO) 0.2 (0.0-1.0); IMMATURE GRANULOCYTE % (AUTO) 1.2 % (0.0-5.0); LYMPHOCYTES % (AUTO) 7.2 (10.0-50.0); MEAN CORPUSCULAR HEMOGLOBIN 25.4 pg (27.0-31.0); MEAN CORPUSCULAR HGB CONC 28.6 (31.8-35.4); MEAN CORPUSCULAR VOLUME 88.8 fl (81.0-99.0); MONOCYTES # (AUTO) 0.7 K/uL (0.4-2.0); MONOCYTES % (AUTO) 5.5 (0-10); NEUTROPHILS # (AUTO) 11.3 K/ul (2.0-6.9); NEUTROPHILS % (AUTO) 84.1 % (42.2-75.2); PLATELET COUNT 155 10^3/uL (140-440); RDW COEFFICIENT OF VARIATION 16.5 % (11.6-14.8); RED BLOOD COUNT 3.58 10^6/ul (4.20-5.40); WHITE BLOOD COUNT 13.41 K/ul (4.6-10.2)
[2022-10-16 20:18] LABS: ALANINE AMINOTRANSFERASE 16.1 U/L (0-35); ALBUMIN 4.06 g/dL (3.5-5.0); ALKALINE PHOSPHATASE 80.6 U/L (38-126); ASPARTATE AMINO TRANSFERASE 27.8 U/L (14-36); BILIRUBIN,TOTAL 0.55 mg/dL (0.2-1.3); BLOOD UREA NITROGEN 43.2 mg/dL (7-17); CALCIUM 8.91 mg/dL (8.4-10.2); CARBON DIOXIDE 35.8 mmol/L (22-30.0); CHLORIDE 102.9 mmol/L (98-107); CREATINE KINASE 308.6 U/L (30-135); CREATININE 1.79 mg/dL (0.60-1.30); GLUCOSE 132.3 mg/dL (74-106); MAGNESIUM 1.62 mg/dL (1.6-2.3); SODIUM 144.3 mmol/L (134.5-145); TOTAL PROTEIN 7.14 g/dL (6.3-8.2)
[2022-10-16 20:20] LABS: POTASSIUM 4.64 mmol/L (3.5-5.1)
--- NOTE | 2022-10-16 20:25 | DI ---
EXAM: Single view of the chest. History: Cough. Comparison: Chest radiograph 10/08/2022 FINDINGS: Heart is enlarged. Interstitial edema. Sternotomy wires. Elevated left hemidiaphragm. No obvious pleural fluid and no pneumothorax. No acute osseous abnormalities. Impression: Cardiomegaly with interstitial edema
[2022-10-16 20:31] LABS: TROPONIN I < 0.012 ng/ml (0.0000-0.120)
[2022-10-16 20:49] LABS: THYROID STIMULATING HORMONE 0.133 uIU/L (0.465-4.68)
[2022-10-16] MEDS ORDERED: SODIUM CHLORIDE 500 ML IV STA (21:38)
[2022-10-16 22:30] LABS: RSV MOLECULAR NEGATIVE BY NAAT (NEGATIVE)
[2022-10-16 22:31] LABS: MOLECULAR FLU A NEGATIVE BY NAAT (NEGATIVE); MOLECULAR FLU B NEGATIVE BY NAAT (NEGATIVE)
[2022-10-16] MEDS ORDERED: LIDOCAINE HCL 1% SDV SUBCUT ONE (23:10)
--- NOTE | 2022-10-16 23:46 | ED.PDOC ---
Procedures - IV/Art Line Insertion Location: left hand Type of Line: Peripheral IV Invasive Line/IV Catheter Gauge: 24 Number of Attempts: 1 Blood Return Positive: Yes Invasive Line/IV Flushes Without Difficulty: Yes Conscious Sedation - Pre-op Assessment Weight: 225 lb Surgical History: heart transplant. Hysterectomy 2011 - Medical History Past Medical History: Hypertension, Anemia, Renal Failure Other History: sleep apnea
[2022-10-17] MEDS ORDERED: LASIX IVP ONE (00:01)
[2022-10-17] MEDS ORDERED: VENTOLIN HFA (PER PUFF-WITH SPACER) IH PRN (00:39)
[2022-10-17] MEDS ORDERED: LASIX TAB PO PRN ×2 (00:39→07:24)
[2022-10-17] MEDS: APRESOLINE PO SCH ×2 (03:40→21:09)
[2022-10-17] MEDS: COREG PO SCH ×2 (03:40→17:07)
[2022-10-17 03:42] VITALS: BMI 38.5
[2022-10-17 05:59] LABS: BASOPHILS % (AUTO) 0.4 % (0.0-3.0); EOSINOPHILS # (AUTO) 0.3 K/ul (0.0-0.7); EOSINOPHILS % (AUTO) 2.6 % (0.0-7.0); HEMATOCRIT 31.1 % (37.0-47.0); HEMOGLOBIN 8.8 g/dl (12.0-16.0); IMMATURE GRANULOCYTE # (AUTO) 0.1 (0.0-1.0); IMMATURE GRANULOCYTE % (AUTO) 0.8 % (0.0-5.0); LYMPHOCYTES # (AUTO) 0.9 K/uL (0.60-3.4); LYMPHOCYTES % (AUTO) 9.6 (10.0-50.0); MEAN CORPUSCULAR HEMOGLOBIN 25.1 pg (27.0-31.0); MEAN CORPUSCULAR HGB CONC 28.3 (31.8-35.4); MEAN CORPUSCULAR VOLUME 88.6 fl (81.0-99.0); MONOCYTES # (AUTO) 0.7 K/uL (0.4-2.0); MONOCYTES % (AUTO) 7.4 (0-10); NEUTROPHILS # (AUTO) 7.5 K/ul (2.0-6.9); NEUTROPHILS % (AUTO) 79.2 % (42.2-75.2); PLATELET COUNT 145 10^3/uL (140-440); RDW COEFFICIENT OF VARIATION 16.6 % (11.6-14.8); RED BLOOD COUNT 3.51 10^6/ul (4.20-5.40)
[2022-10-17 06:12] LABS: BLOOD UREA NITROGEN 41.7 mg/dL (7-17); CALCIUM 8.66 mg/dL (8.4-10.2); CARBON DIOXIDE 36.9 mmol/L (22-30.0); CHLORIDE 104.7 mmol/L (98-107); CREATININE 1.86 mg/dL (0.60-1.30); GLUCOSE 130.8 mg/dL (74-106); POTASSIUM 4.36 mmol/L (3.5-5.1)
[2022-10-17 06:25] LABS: ANISOCYTOSIS 1+ (NOT PRESENT); HYPOCHROMASIA 1+ (NOT PRESENT)
[2022-10-17] MEDS ORDERED: TACROLIMUS 1 MG PO SCH (09:00)
[2022-10-17] MEDS ORDERED: EVEROLIMUS 1 MG PO SCH (09:00)
[2022-10-17] MEDS ORDERED: APRESOLINE PO SCH (09:00)
[2022-10-17] MEDS ORDERED: COREG PO SCH (09:00)
[2022-10-17] MEDS: LOVENOX SUBCUT SCH (09:57)
[2022-10-17] MEDS: ASPIRIN CHEWABLE PO SCH (09:58)
[2022-10-17] MEDS: CYMBALTA PO SCH (09:58)
[2022-10-17] MEDS: PREDNISONE PO SCH (09:58)
[2022-10-17] MEDS: CLARITIN PO SCH (09:58)
[2022-10-17] MEDS: MULTIVITAMIN TABLET PO SCH (09:58)
[2022-10-17] MEDS: PROTONIX PO SCH (09:59)
[2022-10-17] MEDS: MYRBETRIQ PO SCH (09:59)
[2022-10-17] MEDS: FERROUS SULFATE PO SCH ×2 (09:59→21:09)
[2022-10-17] MEDS: NEURONTIN PO SCH ×2 (09:59→21:09)
--- NOTE | 2022-10-17 10:12 | PCM.PROG ---
Date Seen by Provider: 10/17/22 Time Seen by Provider: 09:10 Subjective: Remains weak. No complaints Objective: Vitals: T=98.1 F, P=85, R=20, EX=963/86, SPO2=90 Alert and in NAD. HEENT: [] Neck: [] Lungs: [] Chest clear. CVS: [] RRR Abdomen: [] Extremities: [] Neurological: [] Skin: [] Lab/Tests/Diagnostic Imaging: [] (1) Weakness: Status: Acute Code(s): R53.1 - Weakness SNOMED Code(s): 32950478 Plan: Patient to be transferred to [facility] when bed is available. Continue same management.
[2022-10-17] MEDS: EVEROLIMUS 0.75 MG PO SCH ×2 (10:23→21:10)
--- NOTE | 2022-10-17 13:20 | RS.PTINEVL ---
Subjective - Patient information Date of Evaluation: 10/17/22 (0945) Date of Arrival on Unit: 10/17/22 (Transferred from ER) Admitted From:: Home Diagnosis: COVID +, CHF, Usual Living Arrangement: With Others Home Environment: House, Level/No stairs Medical History: Hypertension, CHF Medical History Comments:: renal failure, anemia Surgical History Comments:: Heart transplant Medications: see chart Subjective Information/ Patient Comments:: pt states she will try to walk a little in the room. pt states she had a fall last night after returning home from [facility] and had to have the fire dept get her door open and help her out of floor. She states she was in [place] due to COVID and CHF. - Level of function Abilities prior to this admission: prior to COVID pt was independent with all ADL's, perinatal coordinator, etc Current Level of Function: Partially Dependent Current Equipment Used at Home: occasionally uses a cane Interventions - Objective Patient Orientation: Person, Place Current Interventions: IV's, Oxygen (3 liters ), Telemetry Range of Motion - ROM Right Upper Extremity AROM: WFL's Left Upper Extremity AROM: WFL's Right Lower Extremity AROM: WFL's Left Lower Extremity AROM: WFL's Muscle Strength - Muscle Strength Right Upper Extremity Strength: Mild Weakness (grossly 4/5) Left Upper Extremity Strength: Mild Weakness (grossly 4/5) Right Lower Extremity Strength: Mild Weakness (hip flex 4-/5, knee flex/ext 4/5, ankle DF/PF 4/5) Left Lower Extremity Strength: Mild Weakness (hip flex 4-/5, knee flex/ext 4/5, ankle DF/PF 4/5) Sensation - Sensation Right Upper Extremity Sensation: Intact/Normal Left Upper Extremity Sensation: Intact/Normal Right Lower Extremity Sensation: Intact/Normal Left Lower Extremity Sensation: Intact/Normal Palpation Palpation Findings: None/Normal Balance - Sitting Balance and Reactions Static Sitting Balance: Good Dynamic Sitting Balance: Good - Standing Balance and Reactions Static Standing Balance: Fair (fair-) Dynamic Standing Balance: Poor Functional Mobility - Bed Mobility Supine to Sit: CGA Sit to Supine: CGA - Transfers Sit to Stand: CGA Stand to Sit: CGA - Safety Awareness Safety Awareness: Fair ARMEN INDEX SCORE: n/a Ambulation - Ambulation Assistive Device Used: Gait belt Orthotic/Prosthetic Device: No Distance: 15ft Assistance needed with Ambulation: CGA Quality of Ambulation: CGA x 1 +1 for O2 and IV Gait Deviations: Forward posture, Short stride, Deviates from path Ambulation Comments: pt with increased lat sway. pt becomes fatigued easily with activity. Factors Affecting Ambulation: Decreased Balance, Breathing/O2 Saturation, Weakness, Decreased Safety, Limited Endurance Treatment time - Units charged ADL: 1 (theract) - Time with patient Length of Evaluation: 18 Total treatment time: 31 Patient Education - Education Patient Education: Activity Modification, Education of Plan of Care Teaching Recipient: Patient Teaching Methods: Discussion Comments: discussion regarding POC and home safety Assessment - Assessment Problem List:: Decreased level of function, Requires training/education, Decreased safety/Risk of falls, Weakness, Cognitive status limits abilities Rehab Potential: Good Further Therapy Indicated?: Yes Candidate for Swing Bed for Therapy Services?: Feel pt will not require swing bed for therapy due to higher level of function. Evaluation Complexity: HISTORY: Medium, EXAM OF BODY SYSTEMS: Medium, CLINICAL PRESENTATION: Medium, CLINICAL DECISION MAKING: Medium Patient's Goal(s): Get stronger and go home Short Term Goals GOAL #1: pt independent with rolling and scooting in bed. Goal to be met by: 10/19/22 GOAL #2: Transfer sup to/from sit SBA. Goal to be met by: 10/19/22 GOAL #3: Transfer sit to/from stand SBA Goal to be met by: 10/19/22 GOAL #4: pt amb 25ft w CGA with no LOB or seated rest period. Goal to be met by: 10/19/22 GOAL #5: Improve BLE strength 4 to 4+/5 Goal to be met by: 10/19/22 Mcfp Goals GOAL #1: pt transfers sup to/from sit to/from stand independently. Goal to be met by: 10/22/22 GOAL #2: pt amb functional household distances SBA to independently no LOB Goal to be met by: 10/22/22 GOAL #3: Improve dyn stand balance fair Goal to be met by: 10/22/22 Plan Plan of Care: Therapeutic EX, Therapeutic Activity Other:: gait training Frequency of Treatment: 1-2 X day, as tolerated Duration of Treatment: 5 days Anticipated Discharge Destination: Home Treatment Diagnosis (ICD 10 Codes): COVID U071.1. impaired balance R 26.81. gait difficulty R 26.2. weakness M62.81 Has the Physician been added for Co-signature?: Yes
[2022-10-17] MEDS: CRESTOR PO SCH (21:09)
[2022-10-18] MEDS ORDERED: CATAPRES PO STA (00:13)
[2022-10-18 00:49] LABS: ABG O2 HGB 96.4 % (95-100); ABG PH 7.35 (7.35-7.45); BEecf 11.9 (-2.0-3.0); COHb 2.2 (0.5-1.5); HCO3 37.5 (21-28); TCO2 39.6 (19-24); sO2 97.9 % (94-98); tHb 7.7 g/dl (11.7-17.4)
[2022-10-18 04:47] LABS: BEecf 9.9 (-2.0-3.0); COHb 3.5 (0.5-1.5); HCO3 37.3 (21-28); MetHb 0.9 (0-1.5); sO2 94.3 % (94-98); tHb 9.4 g/dl (11.7-17.4)
[2022-10-18 04:48] LABS: ABG PH 7.24 (7.35-7.45)
[2022-10-18 05:17] LABS: HEMATOCRIT 32.1 % (37.0-47.0); HEMOGLOBIN 9.2 g/dl (12.0-16.0); MEAN CORPUSCULAR HEMOGLOBIN 26.3 pg (27.0-31.0); MEAN CORPUSCULAR HGB CONC 28.7 (31.8-35.4); MEAN CORPUSCULAR VOLUME 91.7 fl (81.0-99.0); PLATELET COUNT 226 10^3/uL (140-440); RDW COEFFICIENT OF VARIATION 16.9 % (11.6-14.8); WHITE BLOOD COUNT 18.19 K/ul (4.6-10.2)
[2022-10-18 05:27] LABS: BLOOD UREA NITROGEN 43.6 mg/dL (7-17); CALCIUM 8.51 mg/dL (8.4-10.2); CARBON DIOXIDE 39.3 mmol/L (22-30.0); CHLORIDE 103.6 mmol/L (98-107); CREATININE 1.97 mg/dL (0.60-1.30); GLUCOSE 194.9 mg/dL (74-106); POTASSIUM 5.55 mmol/L (3.5-5.1)
--- NOTE | 2022-10-18 05:38 | DI ---
EXAM: Portable chest HISTORY: Declining state COMPARISON: Single-view chest 10/16/2022 FINDINGS: . There is stable cardiomegaly. Sternal wire sutures are noted. There is stable elevati on of the left hemidiaphragm with trace left pleural effusion and left basilar consolidation. The pu lmonary vasculature is congested. IMPRESSION: Cardiomegaly with pulmonary vascular congestion. Stable elevation left hemidiaphragm with likely small left effusion and left basilar atelectasis.
[2022-10-18] MEDS: PROTONIX PO SCH (06:10)
[2022-10-18 06:12] LABS: ANISOCYTOSIS 1+ (NOT PRESENT); HYPOCHROMASIA 1+ (NOT PRESENT)
[2022-10-18] MEDS ORDERED: VERSED ONE (07:12)
[2022-10-18] MEDS ORDERED: DIPRIVAN 1,000 MG/100 ML VIAL 1,000 MG/100 ML INFUS..BTL IV ONE (07:12)
[2022-10-18] MEDS ORDERED: SUBLIMAZE ONE (07:12)
[2022-10-18] MEDS ORDERED: ANECTINE ONE (07:13)
[2022-10-18] MEDS ORDERED: DIPRIVAN 20 ML VIAL IVP ONE (07:13)
[2022-10-18 07:14] LABS: ABG PH 7.12 (7.35-7.45); BEecf 11 (-2.0-3.0)
[2022-10-18 07:15] LABS: COHb 2.5 (0.5-1.5); HCO3 40.3 (21-28); MetHb 1.4 (0-1.5); TCO2 44.1 (19-24); sO2 87.9 % (94-98)
[2022-10-18 07:16] LABS: ABG O2 HGB 91.9 % (95-100)
[2022-10-18] MEDS ORDERED: SUBLIMAZE IVP ONE (07:22)
[2022-10-18] MEDS ORDERED: VERSED IVP ONE (07:22)
[2022-10-18] MEDS ORDERED: ANECTINE IVP ONE (07:24)
[2022-10-18] MEDS ORDERED: NORCURON ONE ×2 (07:28→09:23)
[2022-10-18] MEDS ORDERED: NORCURON IVP ONE (07:31)
[2022-10-18] MEDS ORDERED: EPHEDRINE SULFATE IVP ONE (07:31)
--- NOTE | 2022-10-18 08:05 | DI ---
EXAM: Chest, one view HISTORY: Endotracheal tube COMPARISON: 10/18/2022 TECHNIQUE: Single view chest was performed. FINDINGS: Endotracheal tube terminates approximately 3 cm above the fadi. Heart is enlarged. Med iastinal contour unchanged. Median sternotomy wires. Bilateral interstitial and alveolar opacity. No large pleural effusion. No visible pneumothorax. Elevation left hemidiaphragm. Nonspecific gase ous distension of the stomach. IMPERSSION: 1. Endotracheal tube terminate approximately 3 cm above the fadi. 2. Bilateral interstitial and alveolar opacity may represent edema and/or multifocal pneumonia. 3. Cardiomegaly. 4. Nonspecific gaseous distension in the stomach
[2022-10-18 08:23] LABS: ABG O2 HGB 94.7 % (95-100); ABG PH 7.29 (7.35-7.45); COHb 2.5 (0.5-1.5); HCO3 35.6 (21-28); MetHb 1.5 (0-1.5); TCO2 39.9 (19-24); sO2 94.3 % (94-98); tHb 8.2 g/dl (11.7-17.4)
[2022-10-18] MEDS ORDERED: DIPRIVAN 1,000 MG/100 ML VIAL 1,000 MG/100 ML INFUS..BTL IV SCH (08:30)
[2022-10-18] MEDS: DIPRIVAN 1,000 MG/100 ML VIAL 1,000 MG/100 ML INFUS..BTL IV SCH ×7 (08:30→21:40)
[2022-10-18] MEDS: ASPIRIN CHEWABLE PO SCH (08:31)
[2022-10-18] MEDS: COREG PO SCH ×2 (08:31→16:16)
[2022-10-18] MEDS: PREDNISONE PO SCH (08:31)
[2022-10-18] MEDS: NORCURON IVP PRN ×5 (09:31→19:39)
[2022-10-18] MEDS ORDERED: LASIX IVP SCH (09:32)
[2022-10-18] MEDS: FERROUS SULFATE PO SCH ×2 (09:50→21:00)
[2022-10-18] MEDS: CYMBALTA PO SCH (09:50)
[2022-10-18] MEDS: EVEROLIMUS 0.75 MG PO SCH ×2 (09:50→21:00)
[2022-10-18] MEDS: CLARITIN PO SCH (09:50)
[2022-10-18] MEDS: NEURONTIN PO SCH ×2 (09:51→21:00)
[2022-10-18] MEDS: MULTIVITAMIN TABLET PO SCH (09:51)
[2022-10-18] MEDS: APRESOLINE PO SCH ×2 (09:51→21:00)
[2022-10-18] MEDS: MYRBETRIQ PO SCH (09:51)
[2022-10-18] MEDS: LOVENOX SUBCUT SCH (09:53)
--- NOTE | 2022-10-18 11:03 | PCM.PROG ---
Date Seen by Provider: 10/18/22 Time Seen by Provider: 11:00 Subjective: dx. CO2 retention, chf, pt intubated by Xander from anesthesia Objective: Vitals: T=97.8 F, P=77, R=16, HS=125/77, SPO2=98 HEENT: []conjunctiva clear Neck: []supple Lungs: [] effort clear CVS: []rrr Abdomen: []nondistended Extremities: []warm and dry Neurological: []semi concious Skin: []warm and dry Lab/Tests/Diagnostic Imaging: [] pH 7.12 (1) Weakness: Status: Acute Code(s): R53.1 - Weakness SNOMED Code(s): 61699440 Plan: pt awaits transfer to [place]
[2022-10-18 11:30] LABS: ABG O2 HGB 95.8 % (95-100); BEecf 10.6 (-2.0-3.0); COHb 2.1 (0.5-1.5); HCO3 33.5 (21-28); MetHb 1.5 (0-1.5); TCO2 34.8 (19-24); sO2 98.3 % (94-98); tHb 5.4 g/dl (11.7-17.4)
[2022-10-18 11:34] LABS: ABG PH 7.52 (7.35-7.45)
[2022-10-18] MEDS ORDERED: ZOSYN 3.375 GM 3.375 GM in SODIUM CHLORIDE 100ML 100 ML IV SCH (19:00)
--- NOTE | 2022-10-18 20:30 | PCM.DC ---
Final Diagnosis: covid 19, Resp failure requiring intubation, s/p cardiac transplant Physical Exam Appearance: Ill-appearing Ill-appearing: Mild Pain Distress: Not Applicable Eyes: ANYI, EOMI and Conjunctiva clear ENT: Ears normal and Nose normal Neck: Supple Respiratory: Airway patent, Breath sounds clear and Breath sounds diminished Cardiovascular: RRR, Pulses normal and No rub GI/: Soft and Nontender Skin: Warm and Dry (1) Weakness: Status: Acute Code(s): R53.1 - Weakness SNOMED Code(s): 25201249 Reason for Hospitalization: profound weakness, dyspnea, recent covid 19 infection in cardiac transplant patient Prognosis/Condition at Discharge: guarded Medications at Discharge: see nursing notes Lab/Diagnostics: see chart Discharge Disposition: Transfer Hospital Course: see md notes--no nursing concerns---remains intubated on ventilator Plan: transfer to [facility]
[2022-10-18] MEDS: CRESTOR PO SCH (21:00)
[2022-10-18 21:01] VITALS: BP 152/98; TEMP 97.8
== END 2022-10-18 22:00 | disposition short-term general hospital (02) | DRG 177 ==
LOC: ED 19:09 → SCU 10-17 01:13
PROVIDERS: ADMIT Family Medicine Addiction Medicine; ATTEND Family Medicine
DX: Z99.81 Dependence on supplemental oxygen; I11.0 Hypertensive heart disease with heart failure; E88.9 Metabolic disorder, unspecified; Z20.822 Contact with and (suspected) exposure to COVID-19; Z51.81 Encounter for therapeutic drug level monitoring; J96.01 Acute respiratory failure with hypoxia; R26.81 Unsteadiness on feet; U07.1 COVID-19; R53.1 Weakness; Z79.899 Other long term (current) drug therapy; G47.33 Obstructive sleep apnea (adult) (pediatric); I50.9 Heart failure, unspecified; Z94.1 Heart transplant status; R06.02 Shortness of breath; Z99.11 Dependence on respirator [ventilator] status; R53.81 Other malaise; Z79.82 Long term (current) use of aspirin